=== PATIENT | female | born 1950 | race Hispanic/Latino ===

== ENCOUNTER 2019-10-01 19:20 | Inpatient (IN) | payer OTHER ==
[~2019-10-01] VITALS: Ht 162.6 cm; Wt 125.6 kg
[~2019-10-01 19:20] MED LIST: ALLO100T PO; ASPI-1443 PO; ATOR40TA69 PO; CLOP75TA32 PO; ERGO500014 PO; ESCI10TA54 PO; FERS325 PO; FOLI1TAB85 PO; FURO-152 PO; INSLAN SQ; INSU100C14 SQ; LOSA50TA64 PO; METO50TA18 PO; PANT40TA54 PO
[2019-10-01 19:43] LABS: BASOPHILS % (AUTO) 0.6 % (0.0-5.0); EOSINOPHILS % (AUTO) 2.4 % (0.0-8.0); HEMATOCRIT 36.9 % (36-48); LYMPHOCYTES % (AUTO) 13.2 % (21.0-51.0); MEAN CORPUSCULAR HEMOGLOBIN 30.3 pg (27.0-33.0); MEAN CORPUSCULAR HGB CONC 32.2 g/dL (32.0-36.0); MEAN CORPUSCULAR VOLUME 93.9 fL (79-99); MONOCYTES % (AUTO) 6.3 % (3.0-13.0); NEUTROPHILS % (AUTO) 77.1 % (40.0-77.0); PLATELET COUNT (AUTO) 245 K/uL (130-400); RED BLOOD CELL COUNT(AUTO) 3.93 MIL/uL (4.00-5.50); RED CELL DISTRIBUTION WIDTH 15.3 % (11.0-15.5); WHITE BLOOD COUNT (AUTO) 11.2 K/uL (4.8-10.8)
[2019-10-01 20:12] LABS: B-TYPE NATRIURETIC PEPTIDE 773 pg/mL (0-100); CREATININE 3.3 mg/dL (0.5-1.5); POTASSIUM 4.5 mmol/L (3.5-5.1)
[2019-10-01 20:20] LABS: ALBUMIN 2.8 g/dL (3.5-5.0); BILIRUBIN,TOTAL 0.5 mg/dL (0.2-1.0); TOTAL PROTEIN, SERUM 7.7 g/dL (6.0-8.3)
[2019-10-01] MEDS ORDERED: FUROSEMIDE 10 MG/ML 2ML VIAL ONE (21:00)
[2019-10-01] MEDS ORDERED: ASPIRIN 325 MG TABLET ONE (21:01)
[2019-10-01] MEDS ORDERED: ONDANSETRON HCL 4 MG/2 ML VIAL IV PRN (21:45)
[2019-10-01] MEDS ORDERED: GLUCAGON 1MG KIT 1 MG ML IM PRN (21:45)
[2019-10-01] MEDS ORDERED: DEXTROSE 50%-WATER 50 ML DISP.SYRIN IV PRN (21:45)
[2019-10-01] MEDS: FUROSEMIDE 10 MG/ML 4ML VIAL IV SCH (21:45)
[2019-10-01] MEDS ORDERED: IPRATROPIUM/ALBUTEROL SULFATE 3 ML SOLUTION IH PRN (22:00)
--- NOTE | 2019-10-01 22:40 | NUR ---
PT ARRIVED VIA STRETCHER, DENIES CHEST PAIN OR DISCOMFORT. ON NC 2L DENIES SOB, PT ABLE TO STAND AND SHORT DISTANCE WALK. BED TO LOWEST LEVEL. CALL LIGHT WITHIN REACH.
[2019-10-01 22:48] VITALS: BP 144/68
[2019-10-02] MEDS ORDERED: FERS325 PO (01:10)
[2019-10-02] MEDS: HEPARIN SODIUM 5000UNIT/ML 1ML VIAL SQ SCH ×3 (01:10→21:20)
[2019-10-02] MEDS ORDERED: METO100T14 PO (01:12)
[2019-10-02] MEDS ORDERED: INSU500I SQ (01:13)
[2019-10-02] MEDS ORDERED: NIFE-40 PO (01:15)
[2019-10-02] MEDS ORDERED: FOLI0.8T22 PO (01:16)
[2019-10-02] MEDS ORDERED: ESCI5TAB10 PO (01:17)
[2019-10-02] MEDS ORDERED: SODI1TAB66 PO (01:18)
[2019-10-02 03:07] VITALS: BP 144/62
[2019-10-02 04:36] LABS: BASOPHILS % (AUTO) 0.4 % (0.0-5.0); EOSINOPHILS % (AUTO) 3.2 % (0.0-8.0); HEMATOCRIT 35.2 % (36-48); LYMPHOCYTES % (AUTO) 19.9 % (21.0-51.0); MEAN CORPUSCULAR HEMOGLOBIN 29.6 pg (27.0-33.0); MEAN CORPUSCULAR HGB CONC 31.5 g/dL (32.0-36.0); MEAN CORPUSCULAR VOLUME 93.9 fL (79-99); MONOCYTES % (AUTO) 8.7 % (3.0-13.0); NEUTROPHILS % (AUTO) 67.4 % (40.0-77.0); PLATELET COUNT (AUTO) 228 K/uL (130-400); RED BLOOD CELL COUNT(AUTO) 3.75 MIL/uL (4.00-5.50); RED CELL DISTRIBUTION WIDTH 15.4 % (11.0-15.5); WHITE BLOOD COUNT (AUTO) 8.4 K/uL (4.8-10.8)
[2019-10-02 05:03] LABS: ALBUMIN 2.7 g/dL (3.5-5.0); BILIRUBIN,DIRECT 0.1 mg/dL (0.0-0.3); BILIRUBIN,TOTAL 0.5 mg/dL (0.2-1.0); CREATININE 3.5 mg/dL (0.5-1.5); POTASSIUM 4.6 mmol/L (3.5-5.1); TOTAL PROTEIN, SERUM 7.3 g/dL (6.0-8.3)
[2019-10-02 05:20] LABS: B-TYPE NATRIURETIC PEPTIDE 643 pg/mL (0-100)
[2019-10-02] MEDS: INSULIN HUMULIN R 100 UNIT/ML 3ML SQ SCH ×4 (07:08→21:00)
[2019-10-02] MEDS: FUROSEMIDE 10 MG/ML 4ML VIAL IV SCH ×2 (07:24→21:13)
[2019-10-02] MEDS: FAMOTIDINE/PF 20 MG/2 ML VIAL IV SCH ×2 (07:24→21:06)
[2019-10-02 07:44] VITALS: BP 150/75
--- NOTE | 2019-10-02 07:50 | NUR ---
ASSESSMENT PT IS AAOX3 DENIES CP DENIES SOB DENIES NV NO COMPLAINTS, RESTING IN BED. BREATHING PATTERN IS EVEN AND UNLABORED. CALL LIGHT WITHIN REACH.
[2019-10-02 12:01] VITALS: BP 153/71
[2019-10-02 13:31] LABS: APPEARANCE,URINE Clear (CLEAR); BILIRUBIN,URINE Negative (NEGATIVE); COLOR,URINE Yellow (YELLOW); GLUCOSE, URINE (UA) Negative (NEGATIVE); KETONES,URINE Negative (NEGATIVE); LEUKOCYTE ESTERASE ,URINE Negative (NEGATIVE); NITRATE,URINE Negative (NEGATIVE); OCCULT BLOOD,URINE Negative (NEGATIVE); PH,URINE 5.5 (5.0-8.0); PROTEIN,URINE 300 mg/dL (NEGATIVE); UROBILINOGEN,URINE 0.2 mg/dL (0.2-1.0)
[2019-10-02 13:43] LABS: BACTERIA,URINE Rare /HPF (None Seen); RBC,URINE 0-1 /HPF (0-1); SQUAMOUS EPITHELIAL CELL,UR Rare /HPF (0-2); WBC,URINE 0-1 /HPF (0-1)
[2019-10-02] MEDS: ACETAMINOPHEN 325 MG TAB PO PRN (14:15)
--- NOTE | 2019-10-02 15:31 | NUR ---
INITIAL SW spoke to patient's daughter, Alison Craven, . Another emergency contact is daughter, Marcia Craven, . Patient lives with spouse. As per daughter, patient has home health daily for wound care but daughter does not remember the name of the agency. Patient has no PHC services. DME: glucometer (uses insulin), cane, wheelchair, walker with seat, shower chair. Patient is able to complete ADL's independently but needs help at times. She does not drive. PCP is Dr. Kobi Huffman. Pharmacy is [facility] located in [place]. DCP is home. Addendum: 10/02/19 at 1537 by LUIS GONZALEZ SS Amended: Links added.
[2019-10-02 16:02] VITALS: BP 148/72
[2019-10-02 19:00] VITALS: BP 163/71
[2019-10-02] MEDS: FERROUS SULFATE 325 MG TABLET.DR PO SCH ×2 (21:00→21:06)
[2019-10-02] MEDS: METOPROLOL TARTRATE 50 MG TAB PO SCH (21:06)
[2019-10-02] MEDS: SODIUM BICARBONATE 650 MG TAB PO SCH (21:06)
[2019-10-03 00:12] VITALS: BP 155/78
[2019-10-03] MEDS: ACETAMINOPHEN 325 MG TAB PO PRN ×2 (00:44→10:23)
[2019-10-03 04:32] VITALS: BP 155/68
[2019-10-03 04:46] LABS: BASOPHILS % (AUTO) 0.9 % (0.0-5.0); EOSINOPHILS % (AUTO) 2.5 % (0.0-8.0); HEMATOCRIT 34.8 % (36-48); LYMPHOCYTES % (AUTO) 10.6 % (21.0-51.0); MEAN CORPUSCULAR HEMOGLOBIN 29.7 pg (27.0-33.0); MEAN CORPUSCULAR HGB CONC 31.3 g/dL (32.0-36.0); MEAN CORPUSCULAR VOLUME 94.8 fL (79-99); MONOCYTES % (AUTO) 6.7 % (3.0-13.0); NEUTROPHILS % (AUTO) 79.2 % (40.0-77.0); PLATELET COUNT (AUTO) 212 K/uL (130-400); RED BLOOD CELL COUNT(AUTO) 3.67 MIL/uL (4.00-5.50); RED CELL DISTRIBUTION WIDTH 15.4 % (11.0-15.5); WHITE BLOOD COUNT (AUTO) 9.1 K/uL (4.8-10.8)
[2019-10-03 05:11] LABS: CREATININE 3.6 mg/dL (0.5-1.5); PHOSPHORUS 5.1 mg/dL (2.5-4.9); POTASSIUM 5.1 mmol/L (3.5-5.1); URIC ACID 6.8 mg/dL (2.6-7.2)
[2019-10-03] MEDS: INSULIN HUMULIN R 100 UNIT/ML 3ML SQ SCH ×2 (06:28→11:37)
[2019-10-03 07:00] VITALS: BP 178/78
--- NOTE | 2019-10-03 08:00 | NUR ---
ASSESSMENT AAOX3 DENIES CP DENIES SOB DENIES NV. AM MEDS TAKEN, DENIES PAIN. SITTING UPRIGHT AT BEDSIDE, EATING BREAKFAST. CALL LIGHT WITHIN REACH.
[2019-10-03] MEDS: FUROSEMIDE 10 MG/ML 4ML VIAL IV SCH ×2 (08:01→21:50)
[2019-10-03] MEDS: FERROUS SULFATE 325 MG TABLET.DR PO SCH ×2 (08:02→21:00)
[2019-10-03] MEDS: NIFEDIPINE ER 30 MG TAB PO SCH (08:02)
[2019-10-03] MEDS: SODIUM BICARBONATE 650 MG TAB PO SCH ×2 (08:02→21:50)
[2019-10-03] MEDS: CITALOPRAM 20 MG TABLET PO SCH (08:02)
[2019-10-03] MEDS: METOPROLOL TARTRATE 50 MG TAB PO SCH ×2 (08:02→21:51)
[2019-10-03] MEDS: Vitamin B Complex/Vit C/Folic Acid PO SCH (08:02)
[2019-10-03] MEDS: FAMOTIDINE/PF 20 MG/2 ML VIAL IV SCH ×2 (08:04→21:50)
[2019-10-03] MEDS: HEPARIN SODIUM 5000UNIT/ML 1ML VIAL SQ SCH ×2 (08:05→22:11)
[2019-10-03 11:00] VITALS: BP 159/78
[2019-10-03] MEDS ORDERED: HYDRALAZINE HCL 20 MG/ML VIAL IV PRN (11:15)
[2019-10-03] MEDS: HYDRALAZINE HCL 10 MG TABLET PO SCH ×2 (13:40→21:51)
[2019-10-03 16:00] VITALS: BP 152/72
[2019-10-03] MEDS ORDERED: PHARMACY COMMUNICATION MISC SCH (16:45)
--- NOTE | 2019-10-03 16:50 | NUR ---
GLUCOSE CHECK 403 PT DENIES CP DENIES SOB DENIES NV DENIES DIZZINESS. GAVE 20 UNITS REGULAR INSULIN. CONTINUING TO MONITOR.
--- NOTE | 2019-10-03 17:38 | NUR ---
GLUCOSE RECHECK 427 NOTIFIED PRIMARY MD, ORDERS RECEIVED.
[2019-10-03] MEDS ORDERED: INSULIN LISPRO 100 UNIT/ML 3ML SQ SCH (17:45)
[2019-10-03] MEDS: INSULIN LISPRO 100 UNIT/ML 3ML SQ SCH (17:46)
[2019-10-03 20:24] VITALS: BP 160/83
[2019-10-03] MEDS ORDERED: INSULIN HUMULIN R 100 UNIT/ML 3ML SQ SCH (21:00)
[2019-10-04 00:09] VITALS: BP 145/68
[2019-10-04 04:09] LABS: BASOPHILS % (AUTO) 0.4 % (0.0-5.0); EOSINOPHILS % (AUTO) 2.1 % (0.0-8.0); HEMATOCRIT 33.1 % (36-48); LYMPHOCYTES % (AUTO) 12.7 % (21.0-51.0); MEAN CORPUSCULAR HEMOGLOBIN 29.4 pg (27.0-33.0); MEAN CORPUSCULAR HGB CONC 31.4 g/dL (32.0-36.0); MEAN CORPUSCULAR VOLUME 93.5 fL (79-99); MONOCYTES % (AUTO) 9.7 % (3.0-13.0); NEUTROPHILS % (AUTO) 74.8 % (40.0-77.0); PLATELET COUNT (AUTO) 221 K/uL (130-400); RED BLOOD CELL COUNT(AUTO) 3.54 MIL/uL (4.00-5.50); WHITE BLOOD COUNT (AUTO) 9.4 K/uL (4.8-10.8)
[2019-10-04 04:23] LABS: CREATININE 3.5 mg/dL (0.5-1.5); MAGNESIUM 2.1 mg/dL (1.80-2.40); PHOSPHORUS 4.8 mg/dL (2.5-4.9); POTASSIUM 4.3 mmol/L (3.5-5.1)
[2019-10-04 04:31] LABS: B-TYPE NATRIURETIC PEPTIDE 765 pg/mL (0-100)
[2019-10-04 04:45] VITALS: BP 129/57
--- NOTE | 2019-10-04 05:15 | NUR ---
PT HAS STATED NO CONCERNS AT THIS TIME. REQUESTING SNACKS. CONTINUES TO USE BEDSIDE COMMODE.
[2019-10-04] MEDS: INSULIN HUMULIN R 100 UNIT/ML 3ML SQ SCH ×4 (06:32→21:49)
[2019-10-04 07:00] VITALS: BP 148/74
[2019-10-04] MEDS: METOPROLOL TARTRATE 50 MG TAB PO SCH ×2 (08:02→20:18)
[2019-10-04] MEDS: SODIUM BICARBONATE 650 MG TAB PO SCH ×2 (08:02→20:18)
[2019-10-04] MEDS: NIFEDIPINE ER 30 MG TAB PO SCH (08:02)
[2019-10-04] MEDS: FERROUS SULFATE 325 MG TABLET.DR PO SCH ×2 (08:02→20:18)
[2019-10-04] MEDS: CITALOPRAM 20 MG TABLET PO SCH (08:02)
[2019-10-04] MEDS: HYDRALAZINE HCL 10 MG TABLET PO SCH ×3 (08:02→20:17)
[2019-10-04] MEDS: Vitamin B Complex/Vit C/Folic Acid PO SCH (08:02)
[2019-10-04] MEDS: INSULIN LISPRO 100 UNIT/ML 3ML SQ SCH ×3 (08:09→16:57)
--- NOTE | 2019-10-04 09:10 | NUR ---
RECEIVED CALL FROM PT.'S DAUGHTER, TYLER ORTEZ, UPDATED ON STATUS AND QUESTIONS ANSWERED; VERBALIZED UNDERSTANDING.
[2019-10-04] MEDS: FUROSEMIDE 10 MG/ML 4ML VIAL IV SCH ×2 (09:33→16:53)
[2019-10-04] MEDS: FAMOTIDINE/PF 20 MG/2 ML VIAL IV SCH (09:33)
[2019-10-04] MEDS: HEPARIN SODIUM 5000UNIT/ML 1ML VIAL SQ SCH ×2 (09:33→20:26)
[2019-10-04] MEDS ORDERED: FUROSEMIDE 10 MG/ML 4ML VIAL IV SCH (10:45)
[2019-10-04] MEDS ORDERED: LACT10SO9 PO (10:58)
[2019-10-04 11:00] VITALS: BP 136/60
--- NOTE | 2019-10-04 13:28 | NUR ---
DR. Jozef COBOS IN ROOM SPEAKING WITH PT. RE:PLAN OF CARE. QUESTIONS ANSWERED BY DR. COBOS.
[2019-10-04 15:00] VITALS: BP 126/65
--- NOTE | 2019-10-04 16:15 | NUR ---
[facility] CONSULT PATIENT ASSESSED REQUESTED: PATIENT PRESENTS WITH OPEN WOUND TO RT FOOT; [facility] RECOMMENDATIONS SUBMITTED. Addendum: 10/04/19 at 1621 by LOUISA RIVERA LVN LVN W Amended: Links added.
[2019-10-04] MEDS: ACETAMINOPHEN 325 MG TAB PO PRN (20:18)
[2019-10-05] VITALS (8 sets, daily range): BP systolic 101–142; BP diastolic 43–66
[2019-10-05] MEDS: FUROSEMIDE 10 MG/ML 4ML VIAL IV SCH ×3 (01:48→20:27)
[2019-10-05 05:06] LABS: BASOPHILS % (AUTO) 0.5 % (0.0-5.0); EOSINOPHILS % (AUTO) 3.7 % (0.0-8.0); HEMATOCRIT 34.6 % (36-48); LYMPHOCYTES % (AUTO) 20.1 % (21.0-51.0); MEAN CORPUSCULAR HEMOGLOBIN 29.9 pg (27.0-33.0); MEAN CORPUSCULAR HGB CONC 31.2 g/dL (32.0-36.0); MEAN CORPUSCULAR VOLUME 95.8 fL (79-99); MONOCYTES % (AUTO) 8.6 % (3.0-13.0); NEUTROPHILS % (AUTO) 66.8 % (40.0-77.0); PLATELET COUNT (AUTO) 211 K/uL (130-400); RED BLOOD CELL COUNT(AUTO) 3.61 MIL/uL (4.00-5.50); RED CELL DISTRIBUTION WIDTH 15.3 % (11.0-15.5); WHITE BLOOD COUNT (AUTO) 7.4 K/uL (4.8-10.8)
[2019-10-05 05:21] LABS: CREATININE 4.4 mg/dL (0.5-1.5); MAGNESIUM 2.2 mg/dL (1.80-2.40); PHOSPHORUS 5.6 mg/dL (2.5-4.9); POTASSIUM 4.3 mmol/L (3.5-5.1)
[2019-10-05] MEDS: INSULIN LISPRO 100 UNIT/ML 3ML SQ SCH ×3 (06:26→17:16)
[2019-10-05] MEDS: INSULIN HUMULIN R 100 UNIT/ML 3ML SQ SCH ×4 (06:27→21:11)
[2019-10-05] MEDS: HONEY 1 APPL/ML TUBE TP SCH ×2 (06:27→20:57)
--- NOTE | 2019-10-05 08:54 | NUR ---
DR. COBOS IN ROOM SPEAKING WITH PT. RE:PLAN OF CARE, INCLUDING INCREASE IN DIURETICS AND POSSIBLE NEED FOR HD; PT. VERBALIZED UNDERSTANDING. QUESTIONS ANSWERED BY DR. COBOS.
[2019-10-05] MEDS: Vitamin B Complex/Vit C/Folic Acid PO SCH (09:27)
[2019-10-05] MEDS: SODIUM BICARBONATE 650 MG TAB PO SCH ×2 (09:27→20:28)
[2019-10-05] MEDS: FERROUS SULFATE 325 MG TABLET.DR PO SCH ×2 (09:28→20:28)
[2019-10-05] MEDS: NIFEDIPINE ER 30 MG TAB PO SCH (09:28)
[2019-10-05] MEDS: HYDRALAZINE HCL 10 MG TABLET PO SCH ×3 (09:28→21:00)
[2019-10-05] MEDS: FAMOTIDINE/PF 20 MG/2 ML VIAL IV SCH (09:29)
[2019-10-05] MEDS: HEPARIN SODIUM 5000UNIT/ML 1ML VIAL SQ SCH ×2 (09:29→21:12)
[2019-10-05] MEDS: METOPROLOL TARTRATE 50 MG TAB PO SCH ×2 (09:30→21:00)
[2019-10-05] MEDS: CITALOPRAM 20 MG TABLET PO SCH (09:35)
--- NOTE | 2019-10-05 18:01 | NUR ---
DR. Kayli LOCK IN ROOM SPEAKING WITH PT. RE:PLAN OF CARE. QUESTIONS ANSWERED BY DR. LOCK.
[2019-10-06 03:00] VITALS: BP 140/67
[2019-10-06 03:49] LABS: HEMATOCRIT 34.6 % (36-48); MEAN CORPUSCULAR HEMOGLOBIN 29.2 pg (27.0-33.0); MEAN CORPUSCULAR HGB CONC 30.9 g/dL (32.0-36.0); MEAN CORPUSCULAR VOLUME 94.5 fL (79-99); PLATELET COUNT (AUTO) 220 K/uL (130-400); RED BLOOD CELL COUNT(AUTO) 3.66 MIL/uL (4.00-5.50); RED CELL DISTRIBUTION WIDTH 15.1 % (11.0-15.5); WHITE BLOOD COUNT (AUTO) 8.4 K/uL (4.8-10.8)
[2019-10-06 04:26] LABS: CREATININE 4.4 mg/dL (0.5-1.5); POTASSIUM 4.4 mmol/L (3.5-5.1)
[2019-10-06] MEDS: INSULIN HUMULIN R 100 UNIT/ML 3ML SQ SCH ×2 (05:53→11:31)
[2019-10-06 07:00] VITALS: BP 146/61
[2019-10-06] MEDS: INSULIN LISPRO 100 UNIT/ML 3ML SQ SCH ×5 (08:00→20:42)
[2019-10-06] MEDS: FUROSEMIDE 10 MG/ML 4ML VIAL IV SCH ×2 (09:58→20:30)
[2019-10-06] MEDS: FAMOTIDINE/PF 20 MG/2 ML VIAL IV SCH (09:58)
[2019-10-06] MEDS: NIFEDIPINE ER 30 MG TAB PO SCH (09:59)
[2019-10-06] MEDS: Vitamin B Complex/Vit C/Folic Acid PO SCH (09:59)
[2019-10-06] MEDS: CITALOPRAM 20 MG TABLET PO SCH (09:59)
[2019-10-06] MEDS: SODIUM BICARBONATE 650 MG TAB PO SCH ×2 (09:59→20:30)
[2019-10-06] MEDS: METOPROLOL TARTRATE 50 MG TAB PO SCH (09:59)
[2019-10-06] MEDS: HYDRALAZINE HCL 10 MG TABLET PO SCH ×2 (09:59→14:06)
[2019-10-06] MEDS: FERROUS SULFATE 325 MG TABLET.DR PO SCH ×2 (09:59→20:30)
[2019-10-06] MEDS: HEPARIN SODIUM 5000UNIT/ML 1ML VIAL SQ SCH ×2 (10:00→20:43)
[2019-10-06 11:00] VITALS: BP 124/53
[2019-10-06 15:00] VITALS: BP 121/44
--- NOTE | 2019-10-06 16:03 | NUR ---
SBAR REPORT HANDED TO SABRINA REIS. PATIENT WAS SAFELY TRANSPORTED VIA BED. PATIENT WAS RECEIVED BY SABRINA REIS.
[2019-10-06 19:00] VITALS: BP 115/48
[2019-10-06] MEDS: HONEY 1 APPL/ML TUBE TP SCH (20:30)
[2019-10-06 23:26] VITALS: BP 143/73
[2019-10-07] MEDS: HYDRALAZINE HCL 10 MG TABLET PO SCH ×4 (00:25→21:00)
[2019-10-07] MEDS: METOPROLOL TARTRATE 50 MG TAB PO SCH ×3 (00:25→21:00)
[2019-10-07 04:20] VITALS: BP 145/59
[2019-10-07] MEDS: INSULIN LISPRO 100 UNIT/ML 3ML SQ SCH ×7 (05:29→21:13)
[2019-10-07 06:14] LABS: BASOPHILS % (AUTO) 0.6 % (0.0-5.0); EOSINOPHILS % (AUTO) 3.4 % (0.0-8.0); HEMATOCRIT 32.3 % (36-48); LYMPHOCYTES % (AUTO) 19.2 % (21.0-51.0); MEAN CORPUSCULAR HEMOGLOBIN 29.7 pg (27.0-33.0); MEAN CORPUSCULAR HGB CONC 31.6 g/dL (32.0-36.0); MEAN CORPUSCULAR VOLUME 93.9 fL (79-99); MONOCYTES % (AUTO) 7.9 % (3.0-13.0); NEUTROPHILS % (AUTO) 68.6 % (40.0-77.0); PLATELET COUNT (AUTO) 208 K/uL (130-400); RED BLOOD CELL COUNT(AUTO) 3.44 MIL/uL (4.00-5.50); RED CELL DISTRIBUTION WIDTH 14.9 % (11.0-15.5); WHITE BLOOD COUNT (AUTO) 6.7 K/uL (4.8-10.8)
[2019-10-07 07:03] LABS: CREATININE 4.5 mg/dL (0.5-1.5); POTASSIUM 4.1 mmol/L (3.5-5.1)
[2019-10-07 08:00] VITALS: BP 137/64
[2019-10-07 09:14] LABS: HEMOGLOBIN A1C 9.4 % (4.0-6.0)
[2019-10-07] MEDS: ACETAMINOPHEN 325 MG TAB PO PRN (09:40)
[2019-10-07] MEDS: Vitamin B Complex/Vit C/Folic Acid PO SCH (09:41)
[2019-10-07] MEDS: SODIUM BICARBONATE 650 MG TAB PO SCH ×2 (09:41→21:13)
[2019-10-07] MEDS: NIFEDIPINE ER 30 MG TAB PO SCH (09:42)
[2019-10-07] MEDS: FERROUS SULFATE 325 MG TABLET.DR PO SCH ×2 (09:43→21:12)
[2019-10-07] MEDS: CITALOPRAM 20 MG TABLET PO SCH (09:46)
[2019-10-07] MEDS: HEPARIN SODIUM 5000UNIT/ML 1ML VIAL SQ SCH ×2 (09:54→21:45)
[2019-10-07] MEDS: FAMOTIDINE/PF 20 MG/2 ML VIAL IV SCH (09:54)
[2019-10-07] MEDS: FUROSEMIDE 10 MG/ML 4ML VIAL IV SCH ×2 (10:05→21:12)
[2019-10-07 11:41] VITALS: BP 122/80
[2019-10-07 14:04] LABS: APPEARANCE,URINE Cloudy (CLEAR); BILIRUBIN,URINE Negative (NEGATIVE); COLOR,URINE Yellow (YELLOW); GLUCOSE, URINE (UA) 250 mg/dL (NEGATIVE); KETONES,URINE Negative (NEGATIVE); LEUKOCYTE ESTERASE ,URINE Moderate (NEGATIVE); NITRATE,URINE Negative (NEGATIVE); OCCULT BLOOD,URINE Small (NEGATIVE); PROTEIN,URINE 300 mg/dL (NEGATIVE)
[2019-10-07 14:46] LABS: WBC,URINE 26-50 /HPF (0-1)
[2019-10-07 14:47] LABS: BACTERIA,URINE Many /HPF (None Seen)
[2019-10-07 16:00] VITALS: BP 121/49
[2019-10-07 19:00] VITALS: BP 112/42
[2019-10-07] MEDS: ZOSYN 3.375GM+NS 50ML 50 ML IV SCH (19:45)
[2019-10-07] MEDS ORDERED: ZOSYN 3.375GM+NS 50ML 50 ML IV SCH (21:00)
[2019-10-07] MEDS: HONEY 1 APPL/ML TUBE TP SCH (21:00)
[2019-10-07 23:28] VITALS: BP 132/64
[2019-10-08] VITALS (7 sets, daily range): BP systolic 102–145; BP diastolic 45–69
[2019-10-08 05:45] LABS: BASOPHILS % (AUTO) 0.6 % (0.0-5.0); EOSINOPHILS % (AUTO) 3.9 % (0.0-8.0); HEMATOCRIT 34.2 % (36-48); LYMPHOCYTES % (AUTO) 14.5 % (21.0-51.0); MEAN CORPUSCULAR HEMOGLOBIN 29.9 pg (27.0-33.0); MEAN CORPUSCULAR HGB CONC 31.9 g/dL (32.0-36.0); MONOCYTES % (AUTO) 7.8 % (3.0-13.0); NEUTROPHILS % (AUTO) 72.8 % (40.0-77.0); PLATELET COUNT (AUTO) 221 K/uL (130-400); RED BLOOD CELL COUNT(AUTO) 3.64 MIL/uL (4.00-5.50); WHITE BLOOD COUNT (AUTO) 7.7 K/uL (4.8-10.8)
[2019-10-08 06:10] LABS: CREATININE 4.6 mg/dL (0.5-1.5); PHOSPHORUS 6.6 mg/dL (2.5-4.9); POTASSIUM 4.3 mmol/L (3.5-5.1)
[2019-10-08] MEDS: INSULIN LISPRO 100 UNIT/ML 3ML SQ SCH ×7 (07:05→20:49)
[2019-10-08] MEDS: ZOSYN 3.375GM+NS 50ML 50 ML IV SCH ×2 (07:06→20:50)
[2019-10-08] MEDS: SODIUM BICARBONATE 650 MG TAB PO SCH ×2 (10:56→20:50)
[2019-10-08] MEDS: Vitamin B Complex/Vit C/Folic Acid PO SCH (10:56)
[2019-10-08] MEDS: HYDRALAZINE HCL 10 MG TABLET PO SCH ×3 (10:58→20:50)
[2019-10-08] MEDS: CITALOPRAM 20 MG TABLET PO SCH (10:58)
[2019-10-08] MEDS: METOPROLOL TARTRATE 50 MG TAB PO SCH ×2 (10:59→20:50)
[2019-10-08] MEDS: FERROUS SULFATE 325 MG TABLET.DR PO SCH ×2 (10:59→20:50)
[2019-10-08] MEDS ORDERED: SODIUM CHLORIDE 45 ML SPRY NS PRN (11:00)
[2019-10-08] MEDS: FUROSEMIDE 10 MG/ML 4ML VIAL IV SCH ×2 (11:03→20:50)
[2019-10-08] MEDS: FAMOTIDINE/PF 20 MG/2 ML VIAL IV SCH (11:04)
[2019-10-08] MEDS: HEPARIN SODIUM 5000UNIT/ML 1ML VIAL SQ SCH ×2 (11:21→20:48)
[2019-10-08] MEDS: NIFEDIPINE ER 30 MG TAB PO SCH (11:22)
[2019-10-08] MEDS: ACETAMINOPHEN 325 MG TAB PO PRN (13:39)
[2019-10-08] MEDS: HONEY 1 APPL/ML TUBE TP SCH (20:00)
[2019-10-09 03:54] VITALS: BP 113/54
--- NOTE | 2019-10-09 04:24 | NUR ---
SLEPT Pt slept well.Up ad girma to bedside commode to void,trinh well.Denies chest pain or sob,
[2019-10-09] MEDS: INSULIN LISPRO 100 UNIT/ML 3ML SQ SCH ×7 (05:11→21:34)
[2019-10-09] MEDS: ZOSYN 3.375GM+NS 50ML 50 ML IV SCH ×2 (05:39→18:37)
[2019-10-09 06:23] LABS: EOSINOPHILS % (AUTO) 5.4 % (0.0-8.0); HEMATOCRIT 33.3 % (36-48); LYMPHOCYTES % (AUTO) 15.4 % (21.0-51.0); MEAN CORPUSCULAR HEMOGLOBIN 30.5 pg (27.0-33.0); MEAN CORPUSCULAR HGB CONC 31.8 g/dL (32.0-36.0); MEAN CORPUSCULAR VOLUME 95.7 fL (79-99); MONOCYTES % (AUTO) 8.7 % (3.0-13.0); NEUTROPHILS % (AUTO) 69.4 % (40.0-77.0); PLATELET COUNT (AUTO) 234 K/uL (130-400); RED BLOOD CELL COUNT(AUTO) 3.48 MIL/uL (4.00-5.50); RED CELL DISTRIBUTION WIDTH 15.3 % (11.0-15.5)
[2019-10-09 06:37] LABS: CREATININE 4.9 mg/dL (0.5-1.5); POTASSIUM 4.6 mmol/L (3.5-5.1)
[2019-10-09 07:40] VITALS: BP 102/52
[2019-10-09] MEDS: NIFEDIPINE ER 30 MG TAB PO SCH (09:00)
[2019-10-09] MEDS: HYDRALAZINE HCL 10 MG TABLET PO SCH ×3 (09:00→21:38)
[2019-10-09] MEDS: METOPROLOL TARTRATE 50 MG TAB PO SCH ×2 (09:00→21:37)
[2019-10-09] MEDS: CITALOPRAM 20 MG TABLET PO SCH (09:24)
[2019-10-09] MEDS: SODIUM BICARBONATE 650 MG TAB PO SCH ×2 (09:24→21:37)
[2019-10-09] MEDS: FERROUS SULFATE 325 MG TABLET.DR PO SCH ×2 (09:24→21:38)
[2019-10-09] MEDS: Vitamin B Complex/Vit C/Folic Acid PO SCH (09:24)
[2019-10-09] MEDS: FAMOTIDINE/PF 20 MG/2 ML VIAL IV SCH (09:25)
[2019-10-09] MEDS: FUROSEMIDE 10 MG/ML 4ML VIAL IV SCH ×2 (09:26→21:37)
[2019-10-09] MEDS: HEPARIN SODIUM 5000UNIT/ML 1ML VIAL SQ SCH ×2 (09:42→21:35)
[2019-10-09 11:14] VITALS: BP 133/62
--- NOTE | 2019-10-09 13:30 | NUR ---
DR. COBOS MD HERE TO SEE PATIENT. TOLD PATIENT HER "KIDNEY FUNCTION IS AT 10%." PATIENT TOLD MD SHE WOULD CONSIDER STARTING DIALYSIS ONLY NEEDED URGENTLY. DR. COBOS TOLD PATIENT THAT HER KIDNEY FUNCTION WAS POOR, BUT IT IS NOT AN EMERGENCY TO START DIALYSIS NOW. DID TELL PATIENT SHE COULD START DIALYSIS TREATMENTS NOW IF SHE CHOOSES. PATIENT STATED SHE WANTED TIME TO THINK ABOUT IT AND WOULD CONSIDER STARTING DIALYSIS TREATMENT ONLY IF SHE WAS IN A "LIFE AND SITUATION".
[2019-10-09 15:37] VITALS: BP 130/56
[2019-10-09 19:21] VITALS: BP 135/63
[2019-10-09] MEDS: HONEY 1 APPL/ML TUBE TP SCH (21:37)
[2019-10-09 23:37] VITALS: BP 131/61
--- NOTE | 2019-10-10 02:35 | NUR ---
SLEEP Pt quietly sleeping in bed,arousable.Denies any discomfort.
[2019-10-10 03:03] VITALS: BP 135/61
[2019-10-10 04:03] LABS: BASOPHILS % (AUTO) 0.9 % (0.0-5.0); EOSINOPHILS % (AUTO) 4.9 % (0.0-8.0); HEMATOCRIT 33.1 % (36-48); LYMPHOCYTES % (AUTO) 13.6 % (21.0-51.0); MEAN CORPUSCULAR HEMOGLOBIN 30.1 pg (27.0-33.0); MEAN CORPUSCULAR HGB CONC 31.4 g/dL (32.0-36.0); MEAN CORPUSCULAR VOLUME 95.7 fL (79-99); MONOCYTES % (AUTO) 8.6 % (3.0-13.0); NEUTROPHILS % (AUTO) 71.8 % (40.0-77.0); PLATELET COUNT (AUTO) 234 K/uL (130-400); RED BLOOD CELL COUNT(AUTO) 3.46 MIL/uL (4.00-5.50); RED CELL DISTRIBUTION WIDTH 15.4 % (11.0-15.5); WHITE BLOOD COUNT (AUTO) 8.1 K/uL (4.8-10.8)
[2019-10-10 04:14] LABS: INR 1.14 (0.85-1.15); PARTIAL THROMBOPLASTIN TIME 29.9 SEC (26.3-35.5); PROTHROMBIN TIME 12.2 SEC (9.6-11.6)
[2019-10-10 04:35] LABS: ALBUMIN 2.6 g/dL (3.5-5.0); BILIRUBIN,TOTAL 0.5 mg/dL (0.2-1.0); CREATININE 5.2 mg/dL (0.5-1.5); PHOSPHORUS 6.7 mg/dL (2.5-4.9); POTASSIUM 4.7 mmol/L (3.5-5.1); TOTAL PROTEIN, SERUM 7.5 g/dL (6.0-8.3)
[2019-10-10] MEDS: ZOSYN 3.375GM+NS 50ML 50 ML IV SCH (06:20)
[2019-10-10] MEDS: INSULIN LISPRO 100 UNIT/ML 3ML SQ SCH ×7 (06:28→20:51)
[2019-10-10 08:50] VITALS: BP 136/44
[2019-10-10] MEDS ORDERED: CEPHALEXIN 500 MG CAPSULE PO SCH (09:00)
[2019-10-10] MEDS: HYDRALAZINE HCL 10 MG TABLET PO SCH ×3 (09:00→20:48)
[2019-10-10] MEDS: METOPROLOL TARTRATE 50 MG TAB PO SCH ×2 (09:00→20:47)
[2019-10-10] MEDS: FUROSEMIDE 10 MG/ML 4ML VIAL IV SCH (10:05)
[2019-10-10] MEDS: FAMOTIDINE/PF 20 MG/2 ML VIAL IV SCH (10:06)
[2019-10-10] MEDS: Vitamin B Complex/Vit C/Folic Acid PO SCH (10:06)
[2019-10-10] MEDS: NIFEDIPINE ER 30 MG TAB PO SCH (10:06)
[2019-10-10] MEDS: FERROUS SULFATE 325 MG TABLET.DR PO SCH ×2 (10:07→20:47)
[2019-10-10] MEDS: SODIUM BICARBONATE 650 MG TAB PO SCH ×2 (10:07→20:46)
[2019-10-10] MEDS: CITALOPRAM 20 MG TABLET PO SCH (10:07)
--- NOTE | 2019-10-10 10:13 | NUR ---
RD NOTIFICATION RD consults due to LOS X 9. Diet: renal non dialysis, 75gmccd, fluid restriction. Labs and meds reviewed. Pt is not on dialysis at this time. Pending decision to proceed with dialysis at this time. Right foot ulcer noted. RD will continue to monitor and follow up Monitor po intake, tolerance and labs Pending decision to proceed with dialysis Addendum: 10/10/19 at [address] Amended: Links added.
[2019-10-10] MEDS: HEPARIN SODIUM 5000UNIT/ML 1ML VIAL SQ SCH ×2 (10:19→20:50)
--- NOTE | 2019-10-10 11:30 | NUR ---
Misti CHATMAN NP INFORMED Misti CHATMAN NP FOR HOSPITALIST OF DR. COBOS'S RECOMMENDATIONS AND OK TO DISCHARGE. INFORMED PATIENT QUALIFIES FOR HOME 02 PER RT.
[2019-10-10 11:54] VITALS: BP 138/73
[2019-10-10 16:39] VITALS: BP 128/56
[2019-10-10] MEDS: FUROSEMIDE 80 MG TABLET PO SCH (16:55)
[2019-10-10 19:11] VITALS: BP 127/64
[2019-10-10] MEDS: CEPHALEXIN 500 MG CAPSULE PO SCH (20:47)
[2019-10-10] MEDS: ACETAMINOPHEN 325 MG TAB PO PRN (20:48)
[2019-10-10] MEDS: HONEY 1 APPL/ML TUBE TP SCH (20:48)
[2019-10-10 23:27] VITALS: BP 118/59
[2019-10-11 03:45] VITALS: BP 107/62
--- NOTE | 2019-10-11 04:41 | NUR ---
STATUS Pt pending Home 02 set up.
[2019-10-11 05:34] LABS: BASOPHILS % (AUTO) 0.9 % (0.0-5.0); EOSINOPHILS % (AUTO) 5.1 % (0.0-8.0); HEMATOCRIT 34.5 % (36-48); MEAN CORPUSCULAR HEMOGLOBIN 29.3 pg (27.0-33.0); MEAN CORPUSCULAR HGB CONC 30.4 g/dL (32.0-36.0); MEAN CORPUSCULAR VOLUME 96.4 fL (79-99); MONOCYTES % (AUTO) 7.9 % (3.0-13.0); NEUTROPHILS % (AUTO) 69.9 % (40.0-77.0); PLATELET COUNT (AUTO) 229 K/uL (130-400); RED BLOOD CELL COUNT(AUTO) 3.58 MIL/uL (4.00-5.50); RED CELL DISTRIBUTION WIDTH 15.2 % (11.0-15.5); WHITE BLOOD COUNT (AUTO) 8.1 K/uL (4.8-10.8)
[2019-10-11 05:56] LABS: ALBUMIN 2.6 g/dL (3.5-5.0); BILIRUBIN,TOTAL 0.7 mg/dL (0.2-1.0); CREATININE 5.1 mg/dL (0.5-1.5); POTASSIUM 4.8 mmol/L (3.5-5.1); TOTAL PROTEIN, SERUM 7.7 g/dL (6.0-8.3)
[2019-10-11] MEDS: INSULIN LISPRO 100 UNIT/ML 3ML SQ SCH ×7 (06:44→20:45)
[2019-10-11] MEDS ORDERED: GUAIFENESIN-DM 200/20 MG 10 ML PO SCH (07:15)
[2019-10-11 08:00] VITALS: BP 133/57
[2019-10-11] MEDS: CEPHALEXIN 500 MG CAPSULE PO SCH ×2 (09:24→19:49)
[2019-10-11] MEDS: Vitamin B Complex/Vit C/Folic Acid PO SCH (09:25)
[2019-10-11] MEDS: CITALOPRAM 20 MG TABLET PO SCH (09:26)
[2019-10-11] MEDS: FUROSEMIDE 80 MG TABLET PO SCH ×2 (09:26→18:08)
[2019-10-11] MEDS: METOPROLOL TARTRATE 50 MG TAB PO SCH ×2 (09:27→19:47)
[2019-10-11] MEDS: HYDRALAZINE HCL 10 MG TABLET PO SCH ×3 (09:29→20:40)
[2019-10-11] MEDS: SODIUM BICARBONATE 650 MG TAB PO SCH ×2 (09:29→19:49)
[2019-10-11] MEDS: FERROUS SULFATE 325 MG TABLET.DR PO SCH ×2 (09:30→19:47)
[2019-10-11] MEDS: NIFEDIPINE ER 30 MG TAB PO SCH (09:30)
[2019-10-11] MEDS: FAMOTIDINE/PF 20 MG/2 ML VIAL IV SCH (09:34)
[2019-10-11] MEDS: GUAIFENESIN-DM 200/20 MG 10 ML PO SCH ×4 (09:46→23:16)
[2019-10-11] MEDS: HEPARIN SODIUM 5000UNIT/ML 1ML VIAL SQ SCH ×2 (09:51→19:46)
[2019-10-11 12:00] VITALS: BP 118/50
--- NOTE | 2019-10-11 12:58 | NUR ---
Notified Dr. Queen of new consult. Name and spectra number for primary nurse Karen given to
[2019-10-11 16:00] VITALS: BP 99/55
--- NOTE | 2019-10-11 16:00 | NUR ---
i have paged dr sanches to inform him that pt has stated she is agreeable to starting dialysis now; pending call back
--- NOTE | 2019-10-11 17:03 | NUR ---
dr espinal here to see pt in regards to pulmonology consult.
[2019-10-11] MEDS: ACETAMINOPHEN 325 MG TAB PO PRN (18:07)
[2019-10-11 19:00] VITALS: BP 121/58
[2019-10-11] MEDS: NYSTATIN 15 GM POWDER TP SCH ×2 (19:48→21:00)
[2019-10-11] MEDS: HONEY 1 APPL/ML TUBE TP SCH (21:00)
[2019-10-12] VITALS (7 sets, daily range): BP systolic 112–134; BP diastolic 51–61
[2019-10-12 04:16] LABS: BASOPHILS % (AUTO) 0.4 % (0.0-5.0); EOSINOPHILS % (AUTO) 3.3 % (0.0-8.0); HEMATOCRIT 31.8 % (36-48); LYMPHOCYTES % (AUTO) 14.1 % (21.0-51.0); MEAN CORPUSCULAR HEMOGLOBIN 30.2 pg (27.0-33.0); MEAN CORPUSCULAR HGB CONC 31.8 g/dL (32.0-36.0); MEAN CORPUSCULAR VOLUME 95.2 fL (79-99); MONOCYTES % (AUTO) 7.5 % (3.0-13.0); NEUTROPHILS % (AUTO) 74.4 % (40.0-77.0); PLATELET COUNT (AUTO) 234 K/uL (130-400); RED BLOOD CELL COUNT(AUTO) 3.34 MIL/uL (4.00-5.50); RED CELL DISTRIBUTION WIDTH 15.1 % (11.0-15.5); WHITE BLOOD COUNT (AUTO) 9.3 K/uL (4.8-10.8)
[2019-10-12 04:36] LABS: INR 1.14 (0.85-1.15); PARTIAL THROMBOPLASTIN TIME 30.9 SEC (26.3-35.5); PROTHROMBIN TIME 12.3 SEC (9.6-11.6)
[2019-10-12 04:50] LABS: ALBUMIN 2.7 g/dL (3.5-5.0); BILIRUBIN,DIRECT 0.2 mg/dL (0.0-0.3); BILIRUBIN,TOTAL 0.5 mg/dL (0.2-1.0); CREATININE 5.2 mg/dL (0.5-1.5); POTASSIUM 3.8 mmol/L (3.5-5.1); TOTAL PROTEIN, SERUM 7.5 g/dL (6.0-8.3)
[2019-10-12] MEDS: GUAIFENESIN-DM 200/20 MG 10 ML PO SCH ×3 (05:14→19:15)
[2019-10-12] MEDS: INSULIN LISPRO 100 UNIT/ML 3ML SQ SCH ×8 (06:31→22:16)
[2019-10-12] MEDS: CEPHALEXIN 500 MG CAPSULE PO SCH ×2 (09:11→22:18)
[2019-10-12] MEDS: FUROSEMIDE 80 MG TABLET PO SCH ×2 (09:12→18:16)
[2019-10-12] MEDS: FERROUS SULFATE 325 MG TABLET.DR PO SCH ×2 (09:14→22:18)
[2019-10-12] MEDS: Vitamin B Complex/Vit C/Folic Acid PO SCH (09:14)
[2019-10-12] MEDS: CITALOPRAM 20 MG TABLET PO SCH (09:16)
[2019-10-12] MEDS: HYDRALAZINE HCL 10 MG TABLET PO SCH ×2 (09:17→15:23)
[2019-10-12] MEDS: METOPROLOL TARTRATE 50 MG TAB PO SCH (09:17)
[2019-10-12] MEDS: SODIUM BICARBONATE 650 MG TAB PO SCH ×2 (09:18→22:18)
[2019-10-12] MEDS: NIFEDIPINE ER 30 MG TAB PO SCH (09:18)
[2019-10-12] MEDS: NYSTATIN 15 GM POWDER TP SCH ×2 (09:19→21:00)
[2019-10-12] MEDS: FAMOTIDINE/PF 20 MG/2 ML VIAL IV SCH (09:21)
[2019-10-12] MEDS: HEPARIN SODIUM 5000UNIT/ML 1ML VIAL SQ SCH ×2 (13:08→22:21)
[2019-10-12] MEDS: ACETAMINOPHEN 325 MG TAB PO PRN (15:27)
[2019-10-12] MEDS: NYSTATIN 100000 UNIT/ML 5ML UDCUP PO SCH ×2 (18:15→22:22)
[2019-10-12] MEDS: CLOTRIMAZOLE/BETAMETHASONE DIP 45 GM CREAM.GM. TP SCH (22:17)
[2019-10-12] MEDS: HONEY 1 APPL/ML TUBE TP SCH (22:17)
[2019-10-13] VITALS (15 sets, daily range): BP systolic 107–142; BP diastolic 53–88
[2019-10-13] MEDS: HYDRALAZINE HCL 10 MG TABLET PO SCH ×4 (00:16→21:00)
[2019-10-13] MEDS: GUAIFENESIN-DM 200/20 MG 10 ML PO SCH ×4 (00:16→17:40)
[2019-10-13] MEDS: METOPROLOL TARTRATE 50 MG TAB PO SCH ×3 (00:16→23:06)
[2019-10-13 04:26] LABS: BASOPHILS % (AUTO) 0.4 % (0.0-5.0); EOSINOPHILS % (AUTO) 2.1 % (0.0-8.0); HEMATOCRIT 31.1 % (36-48); LYMPHOCYTES % (AUTO) 9.7 % (21.0-51.0); MEAN CORPUSCULAR HEMOGLOBIN 29.3 pg (27.0-33.0); MEAN CORPUSCULAR HGB CONC 31.5 g/dL (32.0-36.0); MEAN CORPUSCULAR VOLUME 93.1 fL (79-99); NEUTROPHILS % (AUTO) 80.5 % (40.0-77.0); PLATELET COUNT (AUTO) 224 K/uL (130-400); RED BLOOD CELL COUNT(AUTO) 3.34 MIL/uL (4.00-5.50); WHITE BLOOD COUNT (AUTO) 9.1 K/uL (4.8-10.8)
[2019-10-13 04:49] LABS: CREATININE 5.3 mg/dL (0.5-1.5); POTASSIUM 4.2 mmol/L (3.5-5.1)
[2019-10-13] MEDS: INSULIN LISPRO 100 UNIT/ML 3ML SQ SCH ×7 (07:30→23:00)
[2019-10-13] MEDS: FUROSEMIDE 80 MG TABLET PO SCH ×2 (08:27→17:30)
[2019-10-13] MEDS: NIFEDIPINE ER 30 MG TAB PO SCH (08:27)
[2019-10-13] MEDS: SODIUM BICARBONATE 650 MG TAB PO SCH ×2 (08:27→23:02)
[2019-10-13] MEDS: NYSTATIN 15 GM POWDER TP SCH ×2 (08:27→23:04)
[2019-10-13] MEDS: FAMOTIDINE/PF 20 MG/2 ML VIAL IV SCH (08:27)
[2019-10-13] MEDS: FERROUS SULFATE 325 MG TABLET.DR PO SCH ×2 (08:27→23:02)
[2019-10-13] MEDS: Vitamin B Complex/Vit C/Folic Acid PO SCH (08:27)
[2019-10-13] MEDS: NYSTATIN 100000 UNIT/ML 5ML UDCUP PO SCH ×4 (08:27→23:02)
[2019-10-13] MEDS: CITALOPRAM 20 MG TABLET PO SCH (08:27)
[2019-10-13] MEDS: CEPHALEXIN 500 MG CAPSULE PO SCH ×2 (08:27→23:02)
[2019-10-13] MEDS: CLOTRIMAZOLE/BETAMETHASONE DIP 45 GM CREAM.GM. TP SCH ×2 (08:28→23:04)
[2019-10-13] MEDS: HEPARIN SODIUM 5000UNIT/ML 1ML VIAL SQ SCH ×2 (09:45→21:20)
--- NOTE | 2019-10-13 10:01 | NUR ---
SANDI FOLLOW UP Pt NPO pending cath placement/Hemodialysis initiation. Recommend Renal Dialysis Diet order when medically feasible. Pt tolerating PO diet order prior to NPO placement. Good PO. Monitored labs: BUN 102, Cr 5.3, GFR 9, BG 237 RD to continue to monitor. Please notify as additional nutrition concerns arise. Thank you. Addendum: 10/13/19 at [address] Amended: Links added.
[2019-10-13] MEDS ORDERED: LIDOCAINE HCL 1% MDV 50ML VIAL ONE (13:36)
[2019-10-13] MEDS ORDERED: MIDAZOLAM HCL 1 MG/ML 2ML VIAL ONE (13:44)
[2019-10-13] MEDS ORDERED: FENTANYL CITRATE PF 50 MCG/1 ML 2ML VIAL ONE (13:44)
[2019-10-13 15:19] LABS: HEMATOCRIT 31.4 % (36-48)
[2019-10-13 15:34] LABS: HEMOGLOBIN A1C 8.8 % (4.0-6.0)
[2019-10-13 15:49] LABS: ALBUMIN 2.9 g/dL (3.5-5.0); CREATININE 5.4 mg/dL (0.5-1.5)
[2019-10-13 17:08] LABS: % IRON SATURATION 20.3 % (22-44)
[2019-10-13] MEDS: ACETAMINOPHEN 325 MG TAB PO PRN (17:49)
--- NOTE | 2019-10-13 17:54 | NUR ---
DR MEDINA CALLED DR MEDINA CELL- MADE AWARE OF CONSULT. PENDING TO SEE
[2019-10-13] MEDS ORDERED: SODIUM CHLORIDE 0.9% 1000ML 1,000 ML IV PRN (19:00)
[2019-10-13] MEDS ORDERED: 0.9% SODIUM CHLORIDE 1000 ML IV BAG IV PRN (19:00)
[2019-10-13] MEDS ORDERED: ACETAMINOPHEN 325 MG TAB PO PRN (19:00)
[2019-10-13] MEDS ORDERED: HEPARIN SODIUM 5000UNIT/ML 1ML VIAL IJ PRN (19:00)
[2019-10-13] MEDS: HONEY 1 APPL/ML TUBE TP SCH (23:04)
[2019-10-14] MEDS: GUAIFENESIN-DM 200/20 MG 10 ML PO SCH ×4 (01:23→16:49)
[2019-10-14 04:21] VITALS: BP 123/60
[2019-10-14 05:25] LABS: BASOPHILS % (AUTO) 0.5 % (0.0-5.0); HEMATOCRIT 32.5 % (36-48); LYMPHOCYTES % (AUTO) 9.8 % (21.0-51.0); MEAN CORPUSCULAR HEMOGLOBIN 29.7 pg (27.0-33.0); MEAN CORPUSCULAR HGB CONC 31.4 g/dL (32.0-36.0); MEAN CORPUSCULAR VOLUME 94.5 fL (79-99); MONOCYTES % (AUTO) 6.6 % (3.0-13.0); NEUTROPHILS % (AUTO) 82.9 % (40.0-77.0); PLATELET COUNT (AUTO) 237 K/uL (130-400); RED BLOOD CELL COUNT(AUTO) 3.44 MIL/uL (4.00-5.50); RED CELL DISTRIBUTION WIDTH 15.2 % (11.0-15.5); WHITE BLOOD COUNT (AUTO) 8.1 K/uL (4.8-10.8)
[2019-10-14 05:50] LABS: ALBUMIN 2.8 g/dL (3.5-5.0); BILIRUBIN,TOTAL 0.6 mg/dL (0.2-1.0); CREATININE 4.8 mg/dL (0.5-1.5); PHOSPHORUS 6.5 mg/dL (2.5-4.9); POTASSIUM 5.3 mmol/L (3.5-5.1)
[2019-10-14] MEDS: INSULIN LISPRO 100 UNIT/ML 3ML SQ SCH ×7 (06:51→20:14)
--- NOTE | 2019-10-14 08:03 | NUR ---
DR AVILA/EPIFANIO TOLD PT THAT AV FISTULA WILL LIKELY BE SCHEDULED FOR NEXT WEEK. PT VERBALIZED UNDERSTANDING. EXPLAINED PROCEDURE TO PATIENT IN LAYMANS TERMS. VERBALIZED UNDERSTANDING. NO ORDERS GIVEN YET
[2019-10-14 08:15] VITALS: BP 130/53
[2019-10-14] MEDS: METOPROLOL TARTRATE 50 MG TAB PO SCH ×3 (08:32→20:19)
[2019-10-14] MEDS: FAMOTIDINE/PF 20 MG/2 ML VIAL IV SCH (08:32)
[2019-10-14] MEDS: NYSTATIN 100000 UNIT/ML 5ML UDCUP PO SCH ×4 (08:32→20:15)
[2019-10-14] MEDS: SODIUM BICARBONATE 650 MG TAB PO SCH ×2 (08:32→20:15)
[2019-10-14] MEDS: FUROSEMIDE 80 MG TABLET PO SCH ×2 (08:32→17:01)
[2019-10-14] MEDS: CEPHALEXIN 500 MG CAPSULE PO SCH ×2 (08:32→20:15)
[2019-10-14] MEDS: NIFEDIPINE ER 30 MG TAB PO SCH (08:32)
[2019-10-14] MEDS: Vitamin B Complex/Vit C/Folic Acid PO SCH (08:32)
[2019-10-14] MEDS: FERROUS SULFATE 325 MG TABLET.DR PO SCH ×2 (08:32→20:15)
[2019-10-14] MEDS: CITALOPRAM 20 MG TABLET PO SCH (08:33)
[2019-10-14] MEDS: NYSTATIN 15 GM POWDER TP SCH ×2 (08:33→20:18)
[2019-10-14] MEDS: CLOTRIMAZOLE/BETAMETHASONE DIP 45 GM CREAM.GM. TP SCH ×2 (08:33→20:17)
[2019-10-14] MEDS: HEPARIN SODIUM 5000UNIT/ML 1ML VIAL SQ SCH ×2 (08:35→20:29)
[2019-10-14] MEDS: HYDRALAZINE HCL 10 MG TABLET PO SCH ×3 (08:36→21:00)
[2019-10-14 11:19] VITALS: BP 115/49
--- NOTE | 2019-10-14 12:50 | NUR ---
Patient is on Dialysis.Will attempt to initiate PT Evaluation 10/15/2019. Addendum: 10/14/19 at 1418 by KOJO NAVARRETE, PT PT Amended: Links added.
[2019-10-14 16:59] VITALS: BP 123/52
[2019-10-14 19:00] VITALS: BP 129/53
[2019-10-14] MEDS: INSULIN GLARGINE 100 UNITS/ML 10 ML VIAL SQ SCH (20:12)
[2019-10-14] MEDS: HONEY 1 APPL/ML TUBE TP SCH (20:17)
[2019-10-14 23:00] VITALS: BP 121/63
[2019-10-15] MEDS: GUAIFENESIN-DM 200/20 MG 10 ML PO SCH ×4 (01:15→17:00)
[2019-10-15 03:00] VITALS: BP 131/53
[2019-10-15 05:34] LABS: BASOPHILS % (AUTO) 0.3 % (0.0-5.0); EOSINOPHILS % (AUTO) 0.3 % (0.0-8.0); HEMATOCRIT 32.1 % (36-48); LYMPHOCYTES % (AUTO) 7.9 % (21.0-51.0); MEAN CORPUSCULAR HEMOGLOBIN 29.7 pg (27.0-33.0); MEAN CORPUSCULAR HGB CONC 31.8 g/dL (32.0-36.0); MEAN CORPUSCULAR VOLUME 93.3 fL (79-99); MONOCYTES % (AUTO) 5.5 % (3.0-13.0); NEUTROPHILS % (AUTO) 85.6 % (40.0-77.0); PLATELET COUNT (AUTO) 186 K/uL (130-400); RED BLOOD CELL COUNT(AUTO) 3.44 MIL/uL (4.00-5.50); RED CELL DISTRIBUTION WIDTH 15.2 % (11.0-15.5); WHITE BLOOD COUNT (AUTO) 9.5 K/uL (4.8-10.8)
[2019-10-15 05:51] LABS: ALBUMIN 2.9 g/dL (3.5-5.0); BILIRUBIN,TOTAL 0.4 mg/dL (0.2-1.0); CREATININE 3.9 mg/dL (0.5-1.5); POTASSIUM 3.9 mmol/L (3.5-5.1); TOTAL PROTEIN, SERUM 7.5 g/dL (6.0-8.3)
[2019-10-15] MEDS: INSULIN LISPRO 100 UNIT/ML 3ML SQ SCH ×7 (06:10→20:19)
[2019-10-15 08:02] VITALS: BP 131/62
[2019-10-15] MEDS: HYDRALAZINE HCL 10 MG TABLET PO SCH ×3 (08:13→19:33)
[2019-10-15] MEDS: NYSTATIN 15 GM POWDER TP SCH ×2 (08:14→19:39)
[2019-10-15] MEDS: NYSTATIN 100000 UNIT/ML 5ML UDCUP PO SCH ×4 (08:14→19:29)
[2019-10-15] MEDS: FUROSEMIDE 80 MG TABLET PO SCH ×2 (08:30→17:28)
[2019-10-15] MEDS: SODIUM BICARBONATE 650 MG TAB PO SCH ×2 (08:30→19:29)
[2019-10-15] MEDS: CITALOPRAM 20 MG TABLET PO SCH (08:30)
[2019-10-15] MEDS: NIFEDIPINE ER 30 MG TAB PO SCH (08:30)
[2019-10-15] MEDS: FERROUS SULFATE 325 MG TABLET.DR PO SCH ×2 (08:30→19:30)
[2019-10-15] MEDS: Vitamin B Complex/Vit C/Folic Acid PO SCH (08:30)
[2019-10-15] MEDS: CEPHALEXIN 500 MG CAPSULE PO SCH ×2 (08:31→19:30)
[2019-10-15] MEDS: FAMOTIDINE/PF 20 MG/2 ML VIAL IV SCH (08:31)
[2019-10-15] MEDS: CLOTRIMAZOLE/BETAMETHASONE DIP 45 GM CREAM.GM. TP SCH ×2 (08:31→19:38)
[2019-10-15] MEDS: METOPROLOL TARTRATE 50 MG TAB PO SCH ×2 (08:31→19:30)
[2019-10-15] MEDS: HEPARIN SODIUM 5000UNIT/ML 1ML VIAL SQ SCH ×2 (08:37→19:32)
[2019-10-15 11:33] VITALS: BP 133/63
[2019-10-15 16:37] VITALS: BP 127/56
[2019-10-15 19:00] VITALS: BP 125/51
[2019-10-15] MEDS: HONEY 1 APPL/ML TUBE TP SCH (19:38)
[2019-10-15] MEDS: INSULIN GLARGINE 100 UNITS/ML 10 ML VIAL SQ SCH (20:18)
[2019-10-15 23:00] VITALS: BP 120/55
[2019-10-16] VITALS (22 sets, daily range): BP systolic 99–150; BP diastolic 53–75
[2019-10-16] MEDS: GUAIFENESIN-DM 200/20 MG 10 ML PO SCH ×5 (00:51→22:45)
[2019-10-16] MEDS: INSULIN LISPRO 100 UNIT/ML 3ML SQ SCH ×7 (05:16→21:39)
[2019-10-16 05:24] LABS: BASOPHILS % (AUTO) 0.2 % (0.0-5.0); EOSINOPHILS % (AUTO) 0.3 % (0.0-8.0); HEMATOCRIT 32.3 % (36-48); LYMPHOCYTES % (AUTO) 8.9 % (21.0-51.0); MEAN CORPUSCULAR HEMOGLOBIN 29.7 pg (27.0-33.0); MEAN CORPUSCULAR HGB CONC 31.3 g/dL (32.0-36.0); MONOCYTES % (AUTO) 5.7 % (3.0-13.0); NEUTROPHILS % (AUTO) 84.6 % (40.0-77.0); PLATELET COUNT (AUTO) 188 K/uL (130-400); RED CELL DISTRIBUTION WIDTH 15.4 % (11.0-15.5); WHITE BLOOD COUNT (AUTO) 9.6 K/uL (4.8-10.8)
[2019-10-16 05:44] LABS: INR 1.13 (0.85-1.15); PARTIAL THROMBOPLASTIN TIME 28.9 SEC (26.3-35.5); PROTHROMBIN TIME 12.1 SEC (9.6-11.6)
[2019-10-16 05:52] LABS: ALBUMIN 2.9 g/dL (3.5-5.0); BILIRUBIN,TOTAL 0.5 mg/dL (0.2-1.0); CREATININE 4.2 mg/dL (0.5-1.5); POTASSIUM 4.1 mmol/L (3.5-5.1); TOTAL PROTEIN, SERUM 7.5 g/dL (6.0-8.3)
[2019-10-16] MEDS: NIFEDIPINE ER 30 MG TAB PO SCH (09:00)
[2019-10-16] MEDS: NYSTATIN 100000 UNIT/ML 5ML UDCUP PO SCH ×5 (09:00→21:00)
[2019-10-16] MEDS: HYDRALAZINE HCL 10 MG TABLET PO SCH ×3 (09:00→21:00)
[2019-10-16] MEDS: CLOTRIMAZOLE/BETAMETHASONE DIP 45 GM CREAM.GM. TP SCH ×2 (09:00→21:19)
[2019-10-16] MEDS: FUROSEMIDE 80 MG TABLET PO SCH ×2 (09:00→17:00)
[2019-10-16] MEDS: NYSTATIN 15 GM POWDER TP SCH ×2 (09:00→21:20)
[2019-10-16] MEDS: METOPROLOL TARTRATE 50 MG TAB PO SCH ×2 (09:22→21:00)
[2019-10-16] MEDS ORDERED: CEFAZOLIN SODIUM 1 GM VIAL ONE ×2 (09:43→12:16)
[2019-10-16] MEDS ORDERED: PAPAVERINE HCL 30 MG/ML 2ML VIAL ONE (09:44)
[2019-10-16] MEDS: HEPARIN SODIUM 5000UNIT/ML 1ML VIAL SQ SCH ×2 (09:45→21:20)
[2019-10-16] MEDS ORDERED: MIDAZOLAM HCL 1 MG/ML 2ML VIAL ONE (10:05)
[2019-10-16] MEDS ORDERED: DEXAMETHASONE SOD PHOSPHATE 10MG/ML 1ML VIAL ONE (10:05)
[2019-10-16] MEDS ORDERED: ROPIVACAINE 0.5% 5MG/ML 30ML IJ ONE (10:05)
[2019-10-16] MEDS ORDERED: KETAMINE 50MG/ML SYRINGE 50 MG/ML DISP.SYRIN IV ONE ×2 (10:06→12:24)
[2019-10-16] MEDS ORDERED: GLYCOPYRROLATE 1 MG/5 ML SYRINGE ONE (12:28)
[2019-10-16] MEDS ORDERED: LIDOCAINE HCL 1% 20 ML VIAL ONE (12:29)
[2019-10-16] MEDS ORDERED: BUPIVACAINE/PF 0.25% 30ML VIAL IJ ONE (12:29)
[2019-10-16] MEDS ORDERED: FENTANYL CITRATE PF 50 MCG/1 ML 2ML VIAL ONE ×2 (12:40→14:27)
[2019-10-16] MEDS ORDERED: LIDOCAINE PF 2% 5ML ABBOJECT ONE (12:46)
[2019-10-16] MEDS ORDERED: PROPOFOL 10 MG/ML 20ML VIAL IV ONE (12:46)
[2019-10-16] MEDS ORDERED: ONDANSETRON HCL 4 MG/2 ML VIAL ONE (12:48)
--- NOTE | 2019-10-16 13:26 | NUR ---
CM NOTE/DIALYSIS REFERRAL NEW ORDER FOR HD. PER PATIENT AND DAUGHTER SHERLY CASH FOR [facility]. DANIEL VERBAL CONSENT GIVEN. CLINICALS FAXED TO [facility]TA[facility], PENDING CONFIRMATION. PATIENT TO HAVE AV FISTULA PLACEMENT TODAY. WILL FOLLOW UP FOR CHAIR DATE/TIME.
--- NOTE | 2019-10-16 13:56 | NUR ---
RT ARM DRESSING, CDI, NEW FISTULA TO LEFT ARM. PT WITH LEFT RADIAL PULSE BY DOPPLER. GOOD CAP REFILL TO LEFT HAND FINGERS AND HAND WARM TO TACTILE. PT STABLE. RT CHEST TEMPORARY DIALYSIS PORT, DRESSING BLOODY AND OOZING. TRISTA JIM NOTIFIED, ORDERS GIVEN TO REENFORCE DRESSING. Addendum: 10/16/19 at 1444 by NA NOEL RN RN Amended: Links added.
--- NOTE | 2019-10-16 14:54 | NUR ---
LEFT ARM DRESSING CDI. LEFT ARM RADIAL PULSE BY DOPPLER. LEFT ARM GOOD CAP REFILL AND HAND WARM TO TACTILE. PT STABLE. PT TRANSFERRED TO HER RM. Addendum: 10/16/19 at 1456 by NA NOEL RN RN Amended: Links added.
[2019-10-16] MEDS ORDERED: TRAMADOL HCL 50 MG TABLET PO PRN (15:00)
[2019-10-16] MEDS: HYDROMORPHONE 1 MG/1 ML AMP IVP PRN ×3 (15:21→21:55)
[2019-10-16 16:40] LABS: HEMATOCRIT 32.3 % (36-48); MEAN CORPUSCULAR HEMOGLOBIN 29.6 pg (27.0-33.0); MEAN CORPUSCULAR HGB CONC 30.7 g/dL (32.0-36.0); MEAN CORPUSCULAR VOLUME 96.4 fL (79-99); PLATELET COUNT (AUTO) 195 K/uL (130-400); RED BLOOD CELL COUNT(AUTO) 3.35 MIL/uL (4.00-5.50); RED CELL DISTRIBUTION WIDTH 15.8 % (11.0-15.5); WHITE BLOOD COUNT (AUTO) 10.1 K/uL (4.8-10.8)
[2019-10-16 17:06] LABS: INR 1.18 (0.85-1.15); PARTIAL THROMBOPLASTIN TIME 71.3 SEC (26.3-35.5); PROTHROMBIN TIME 12.7 SEC (9.6-11.6)
[2019-10-16] MEDS: SODIUM BICARBONATE 650 MG TAB PO SCH ×2 (17:45→19:51)
[2019-10-16] MEDS: Vitamin B Complex/Vit C/Folic Acid PO SCH (17:45)
[2019-10-16] MEDS: FERROUS SULFATE 325 MG TABLET.DR PO SCH ×2 (17:45→19:51)
[2019-10-16] MEDS: CITALOPRAM 20 MG TABLET PO SCH (17:46)
[2019-10-16] MEDS: CEPHALEXIN 500 MG CAPSULE PO SCH ×2 (17:46→19:51)
[2019-10-16] MEDS: FAMOTIDINE/PF 20 MG/2 ML VIAL IV SCH (17:46)
[2019-10-16] MEDS: HONEY 1 APPL/ML TUBE TP SCH (21:19)
[2019-10-16] MEDS: TRAMADOL HCL 50 MG TABLET PO PRN (21:27)
[2019-10-16] MEDS: INSULIN GLARGINE 100 UNITS/ML 10 ML VIAL SQ SCH (21:39)
[2019-10-17] MEDS: HYDROMORPHONE 1 MG/1 ML AMP IVP PRN (01:37)
[2019-10-17] MEDS: GUAIFENESIN-DM 200/20 MG 10 ML PO SCH (03:48)
[2019-10-17 04:25] VITALS: BP 131/76
[2019-10-17 05:34] LABS: BASOPHILS % (AUTO) 0.2 % (0.0-5.0); EOSINOPHILS % (AUTO) 0.2 % (0.0-8.0); HEMATOCRIT 32.7 % (36-48); LYMPHOCYTES % (AUTO) 8.9 % (21.0-51.0); MEAN CORPUSCULAR HEMOGLOBIN 30.2 pg (27.0-33.0); MEAN CORPUSCULAR HGB CONC 31.5 g/dL (32.0-36.0); MEAN CORPUSCULAR VOLUME 95.9 fL (79-99); MONOCYTES % (AUTO) 8.4 % (3.0-13.0); NEUTROPHILS % (AUTO) 81.8 % (40.0-77.0); PLATELET COUNT (AUTO) 202 K/uL (130-400); RED BLOOD CELL COUNT(AUTO) 3.41 MIL/uL (4.00-5.50); RED CELL DISTRIBUTION WIDTH 15.4 % (11.0-15.5); WHITE BLOOD COUNT (AUTO) 12.5 K/uL (4.8-10.8)
[2019-10-17] MEDS: INSULIN LISPRO 100 UNIT/ML 3ML SQ SCH ×7 (05:45→20:07)
[2019-10-17 05:56] LABS: ALBUMIN 2.8 g/dL (3.5-5.0); BILIRUBIN,TOTAL 0.4 mg/dL (0.2-1.0); CREATININE 4.5 mg/dL (0.5-1.5); POTASSIUM 4.4 mmol/L (3.5-5.1); TOTAL PROTEIN, SERUM 7.2 g/dL (6.0-8.3)
[2019-10-17 06:02] LABS: INR 1.14 (0.85-1.15); PROTHROMBIN TIME 12.3 SEC (9.6-11.6)
[2019-10-17 07:34] VITALS: BP 144/84
[2019-10-17 08:10] LABS: HEPATITIS Bs ANTIGEN SCREEN P Negative (Negative)
[2019-10-17] MEDS: TRAMADOL HCL 50 MG TABLET PO PRN ×2 (08:55→13:36)
[2019-10-17] MEDS: SODIUM BICARBONATE 650 MG TAB PO SCH ×2 (08:58→20:11)
[2019-10-17] MEDS: NIFEDIPINE ER 30 MG TAB PO SCH (08:59)
[2019-10-17] MEDS: NYSTATIN 15 GM POWDER TP SCH ×2 (09:00→20:13)
[2019-10-17] MEDS: FUROSEMIDE 80 MG TABLET PO SCH ×2 (09:00→18:25)
[2019-10-17] MEDS: HYDRALAZINE HCL 10 MG TABLET PO SCH ×3 (09:00→20:12)
[2019-10-17] MEDS: CLOTRIMAZOLE/BETAMETHASONE DIP 45 GM CREAM.GM. TP SCH ×2 (09:00→20:13)
[2019-10-17] MEDS: CEPHALEXIN 500 MG CAPSULE PO SCH ×2 (09:01→20:11)
[2019-10-17] MEDS: Vitamin B Complex/Vit C/Folic Acid PO SCH (09:02)
[2019-10-17] MEDS: METOPROLOL TARTRATE 50 MG TAB PO SCH ×2 (09:02→21:00)
[2019-10-17] MEDS: CITALOPRAM 20 MG TABLET PO SCH (09:03)
[2019-10-17] MEDS: FERROUS SULFATE 325 MG TABLET.DR PO SCH ×2 (09:03→20:11)
[2019-10-17] MEDS: NYSTATIN 100000 UNIT/ML 5ML UDCUP PO SCH ×4 (09:04→20:12)
[2019-10-17] MEDS: FAMOTIDINE/PF 20 MG/2 ML VIAL IV SCH (09:05)
[2019-10-17] MEDS: INSULIN GLARGINE 100 UNITS/ML 10 ML VIAL SQ SCH ×2 (09:29→18:30)
[2019-10-17] MEDS: HEPARIN SODIUM 5000UNIT/ML 1ML VIAL SQ SCH ×2 (09:45→20:07)
[2019-10-17 10:56] VITALS: BP 116/64
[2019-10-17] MEDS ORDERED: HYDRALAZINE HCL 25 MG TABLET ONE (11:58)
[2019-10-17] MEDS: HONEY 1 APPL/ML TUBE TP SCH (14:23)
[2019-10-17 15:40] VITALS: BP 142/42
[2019-10-17] MEDS: ACETAMINOPHEN 325 MG TAB PO PRN (18:37)
[2019-10-17 20:06] VITALS: BP 119/49
[2019-10-17] MEDS: ATORVASTATIN CALCIUM 40 MG TABLET PO SCH (20:10)
[2019-10-18] VITALS (7 sets, daily range): BP systolic 110–134; BP diastolic 42–70
[2019-10-18] MEDS: INSULIN LISPRO 100 UNIT/ML 3ML SQ SCH ×7 (05:47→20:40)
[2019-10-18 06:19] LABS: BASOPHILS % (AUTO) 0.2 % (0.0-5.0); EOSINOPHILS % (AUTO) 1.4 % (0.0-8.0); HEMATOCRIT 31.8 % (36-48); LYMPHOCYTES % (AUTO) 9.1 % (21.0-51.0); MEAN CORPUSCULAR HEMOGLOBIN 29.6 pg (27.0-33.0); MEAN CORPUSCULAR HGB CONC 30.8 g/dL (32.0-36.0); MEAN CORPUSCULAR VOLUME 96.1 fL (79-99); MONOCYTES % (AUTO) 7.9 % (3.0-13.0); NEUTROPHILS % (AUTO) 80.6 % (40.0-77.0); PLATELET COUNT (AUTO) 168 K/uL (130-400); RED BLOOD CELL COUNT(AUTO) 3.31 MIL/uL (4.00-5.50); RED CELL DISTRIBUTION WIDTH 15.4 % (11.0-15.5); WHITE BLOOD COUNT (AUTO) 13.9 K/uL (4.8-10.8)
[2019-10-18 06:27] LABS: CREATININE 3.8 mg/dL (0.5-1.5); POTASSIUM 4.1 mmol/L (3.5-5.1)
[2019-10-18] MEDS: ACETAMINOPHEN 325 MG TAB PO PRN ×2 (08:52→20:39)
[2019-10-18] MEDS: INSULIN GLARGINE 100 UNITS/ML 10 ML VIAL SQ SCH ×2 (08:55→20:41)
[2019-10-18] MEDS: SODIUM BICARBONATE 650 MG TAB PO SCH ×2 (08:56→20:40)
[2019-10-18] MEDS: NYSTATIN 100000 UNIT/ML 5ML UDCUP PO SCH ×4 (08:56→20:40)
[2019-10-18] MEDS: FERROUS SULFATE 325 MG TABLET.DR PO SCH ×2 (08:56→20:40)
[2019-10-18] MEDS: NIFEDIPINE ER 30 MG TAB PO SCH (08:56)
[2019-10-18] MEDS: FUROSEMIDE 80 MG TABLET PO SCH ×2 (08:56→16:24)
[2019-10-18] MEDS: CLOTRIMAZOLE/BETAMETHASONE DIP 45 GM CREAM.GM. TP SCH ×2 (08:56→21:00)
[2019-10-18] MEDS: FAMOTIDINE/PF 20 MG/2 ML VIAL IV SCH (08:56)
[2019-10-18] MEDS: CEPHALEXIN 500 MG CAPSULE PO SCH ×2 (08:57→20:40)
[2019-10-18] MEDS: Vitamin B Complex/Vit C/Folic Acid PO SCH (08:57)
[2019-10-18] MEDS: CITALOPRAM 20 MG TABLET PO SCH (08:57)
[2019-10-18] MEDS: HYDRALAZINE HCL 10 MG TABLET PO SCH ×3 (08:58→21:00)
[2019-10-18] MEDS: NYSTATIN 15 GM POWDER TP SCH ×2 (08:58→21:00)
[2019-10-18] MEDS: METOPROLOL TARTRATE 50 MG TAB PO SCH ×2 (08:58→21:00)
[2019-10-18] MEDS: HEPARIN SODIUM 5000UNIT/ML 1ML VIAL SQ SCH (11:36)
--- NOTE | 2019-10-18 12:00 | NUR ---
SENT LAST OF NEEDED INFO TO [facility]- CALL TO [facility], CONFIRMED MISSING ELEMENTS- 3RD TX, (COMPLETED YESTERDAY 1630), PN'S, UP TO DATE MED LIST; WAS ADVISED FERNANDO IS THE INTAKE PERSON ON THIS REFERRAL AND WILL BE CALLING WITH AN ACCEPTANCE, AND THAT YES THERE ARE CHAIRS AVAILABLE AT [facility].
--- NOTE | 2019-10-18 14:15 | NUR ---
NEPHROLOGY DR. COBOS IN TO SEE PATIENT. NEW ORDERS RECEIVED AND CARRIED OUT.
--- NOTE | 2019-10-18 14:46 | NUR ---
RD FOLLOW UP NOTE NUTRITION EDUCATION NOTIFICATION RECEIVED. RD PROVIDED DIABETES AND DIALYSIS NUTRITION EDUCATION, PT HAD SPECIFIC QUESTIONS. NUTRITION EDUCATION PROVIDED OVER THE PHONE (ISOLATION PROTOCOL). REFERENCE MATERIALS AND HANDOUTS PLACED IN PT CHART. PT REPORTS GOOD APPETITE. RD TO CONTINUE TO MONITOR. PLEASE NOTIFY ADDITIONAL NUTRITION CONCERNS ARISE. THANK YOU. Addendum: 10/18/19 at [address] Amended: Links added.
--- NOTE | 2019-10-18 14:52 | NUR ---
NUTRITION EDUCATION RD PROVIDED DIABETES & DIALYSIS NUTRITION EDUCATION, VIA PHONE PER ISOLATION PROTOCOL. RD PROVIDED REFERENCE MATERIALS AND HANDOUTS, FLAGGED IN PT'S CHART. RD ANSWERED ALL OF PT QUESTIONS. PT VERBALIZED UNDERSTANDING. RD ENCOURAGED PT TO NOTIFY ADDITIONAL QUESTIONS OR CONCERNS ARISE. Addendum: 10/18/19 at [address] RD Amended: Links added.
[2019-10-18] MEDS: ATORVASTATIN CALCIUM 40 MG TABLET PO SCH (20:40)
[2019-10-18] MEDS: HONEY 1 APPL/ML TUBE TP SCH (21:00)
[2019-10-19] MEDS: HEPARIN SODIUM 5000UNIT/ML 1ML VIAL SQ SCH ×2 (01:28→11:49)
[2019-10-19 03:49] VITALS: BP 135/67
[2019-10-19 04:13] LABS: MEAN CORPUSCULAR HEMOGLOBIN 30.9 pg (27.0-33.0); MEAN CORPUSCULAR HGB CONC 32.6 g/dL (32.0-36.0); MEAN CORPUSCULAR VOLUME 94.8 fL (79-99); PLATELET COUNT (AUTO) 162 K/uL (130-400); RED BLOOD CELL COUNT(AUTO) 3.27 MIL/uL (4.00-5.50); RED CELL DISTRIBUTION WIDTH 15.3 % (11.0-15.5); WHITE BLOOD COUNT (AUTO) 14.9 K/uL (4.8-10.8)
[2019-10-19 04:26] LABS: CREATININE 3.7 mg/dL (0.5-1.5); POTASSIUM 3.7 mmol/L (3.5-5.1)
[2019-10-19 05:23] LABS: BAND NEUTROPHILS % (MANUAL) 1 % (0-2); BASOPHILS % (MANUAL) 1 % (0-2); EOSINOPHILS % (MANUAL) 1 % (1-6); LYMPHOCYTES % (MANUAL) 8 % (22-44); MONOCYTES % (MANUAL) 8 % (2-9); SEGMENTED NEUTROPHILS % 81 % (40-70)
[2019-10-19 05:24] LABS: MAN.DIFF COMMENT-IMPRESSION MANUAL DIFFERENTIAL; PLATELET MORPHOLOGY COMMENT ADEQUATE
[2019-10-19 08:12] VITALS: BP 160/65
[2019-10-19] MEDS: ACETAMINOPHEN 325 MG TAB PO PRN ×2 (08:18→15:13)
[2019-10-19] MEDS: INSULIN LISPRO 100 UNIT/ML 3ML SQ SCH ×5 (08:21→17:39)
[2019-10-19] MEDS: FERROUS SULFATE 325 MG TABLET.DR PO SCH ×2 (09:46→20:59)
[2019-10-19] MEDS: CEPHALEXIN 500 MG CAPSULE PO SCH ×2 (09:46→21:00)
[2019-10-19] MEDS: FAMOTIDINE/PF 20 MG/2 ML VIAL IV SCH (09:46)
[2019-10-19] MEDS: CITALOPRAM 20 MG TABLET PO SCH (09:46)
[2019-10-19] MEDS: SODIUM BICARBONATE 650 MG TAB PO SCH ×2 (09:47→20:59)
[2019-10-19] MEDS: FUROSEMIDE 80 MG TABLET PO SCH ×2 (09:47→17:30)
[2019-10-19] MEDS: Vitamin B Complex/Vit C/Folic Acid PO SCH (09:47)
[2019-10-19] MEDS: HYDRALAZINE HCL 10 MG TABLET PO SCH ×3 (09:47→20:59)
[2019-10-19] MEDS: NIFEDIPINE ER 30 MG TAB PO SCH (09:47)
[2019-10-19] MEDS: METOPROLOL TARTRATE 50 MG TAB PO SCH ×2 (09:47→20:59)
[2019-10-19] MEDS: CLOTRIMAZOLE/BETAMETHASONE DIP 45 GM CREAM.GM. TP SCH ×2 (09:48→21:18)
[2019-10-19] MEDS: NYSTATIN 15 GM POWDER TP SCH ×2 (09:48→21:18)
[2019-10-19] MEDS: INSULIN GLARGINE 100 UNITS/ML 10 ML VIAL SQ SCH ×2 (09:57→21:01)
[2019-10-19 11:00] VITALS: BP 139/62
[2019-10-19] MEDS: NYSTATIN 100000 UNIT/ML 5ML UDCUP PO SCH ×4 (13:33→20:59)
--- NOTE | 2019-10-19 14:00 | NUR ---
CM NOTE/PENDING DIALYSIS PER [facility], HEP B AND HD TREATMENTS UNDER REVIEW, PENDING DIALYSIS CHAIR DATE/TIME. PRIMARY NURSE, KALLI REIS, MADE AWARE.
--- NOTE | 2019-10-19 14:31 | NUR ---
DR INGRAM ROUNDED ON PATIENT ORDERS FOR CBC AND BMP IN AM AND PATIENT TO HAVE DIALYSIS
[2019-10-19 16:36] VITALS: BP 115/58
[2019-10-19 20:00] VITALS: BP 103/49
[2019-10-19] MEDS: ATORVASTATIN CALCIUM 40 MG TABLET PO SCH (20:59)
[2019-10-19] MEDS: HONEY 1 APPL/ML TUBE TP SCH (21:01)
[2019-10-19 23:58] VITALS: BP 117/50
[2019-10-20] MEDS: HEPARIN SODIUM 5000UNIT/ML 1ML VIAL SQ SCH ×2 (01:16→12:00)
[2019-10-20 04:00] VITALS: BP 133/55
[2019-10-20 04:24] LABS: BASOPHILS % (AUTO) 0.5 % (0.0-5.0); EOSINOPHILS % (AUTO) 3.2 % (0.0-8.0); HEMATOCRIT 31.3 % (36-48); LYMPHOCYTES % (AUTO) 12.9 % (21.0-51.0); MEAN CORPUSCULAR HEMOGLOBIN 29.6 pg (27.0-33.0); MEAN CORPUSCULAR HGB CONC 31.3 g/dL (32.0-36.0); MEAN CORPUSCULAR VOLUME 94.6 fL (79-99); MONOCYTES % (AUTO) 9.3 % (3.0-13.0); NEUTROPHILS % (AUTO) 73.7 % (40.0-77.0); PLATELET COUNT (AUTO) 170 K/uL (130-400); RED BLOOD CELL COUNT(AUTO) 3.31 MIL/uL (4.00-5.50); RED CELL DISTRIBUTION WIDTH 15.6 % (11.0-15.5); WHITE BLOOD COUNT (AUTO) 12.1 K/uL (4.8-10.8)
[2019-10-20 04:36] LABS: CREATININE 4.3 mg/dL (0.5-1.5)
[2019-10-20 07:52] VITALS: BP 113/54
[2019-10-20] MEDS: INSULIN LISPRO 100 UNIT/ML 3ML SQ SCH ×3 (08:00→17:26)
[2019-10-20] MEDS ORDERED: INSULIN GLARGINE 100 UNITS/ML 10 ML VIAL SQ SCH (09:00)
--- NOTE | 2019-10-20 09:21 | NUR ---
pt stating she feels like her blood sugar is low, glucometer 69, pt given apple juice to help raise it; she has not eaten her breakfast because she is in the process of getting her dialysis; will recheck and cont to monitor. note i did call dr Lakhani earlier to inform of low sugars during the night and received a voice mail; message left w/ my number. Note dr Cuello has decreased schedule insulin
--- NOTE | 2019-10-20 09:48 | NUR ---
CM NOTE/DAVITA CHAIR/TIME PER FERNANDO AT [facility], PATIENT APPROVED FOR DIALYSIS. SCHEDULED ON SUNDAY 10/22 AT 0500. PRIMARY NURSE, ABEBE REIS, MADE AWARE. WILL CALL PATIENT AND FAMILY TO REPORT DIALYSIS CHAIR/TIME.
[2019-10-20] MEDS: Vitamin B Complex/Vit C/Folic Acid PO SCH (10:43)
[2019-10-20] MEDS: SODIUM BICARBONATE 650 MG TAB PO SCH ×2 (10:43→21:12)
[2019-10-20] MEDS: CITALOPRAM 20 MG TABLET PO SCH (10:44)
[2019-10-20] MEDS: CEPHALEXIN 500 MG CAPSULE PO SCH (10:44)
[2019-10-20] MEDS: FERROUS SULFATE 325 MG TABLET.DR PO SCH ×2 (10:44→21:12)
[2019-10-20] MEDS: NIFEDIPINE ER 30 MG TAB PO SCH (10:44)
[2019-10-20] MEDS: METOPROLOL TARTRATE 50 MG TAB PO SCH ×2 (10:45→21:00)
[2019-10-20] MEDS: FUROSEMIDE 80 MG TABLET PO SCH ×2 (10:45→17:25)
[2019-10-20] MEDS: FAMOTIDINE/PF 20 MG/2 ML VIAL IV SCH (10:45)
[2019-10-20] MEDS: HYDRALAZINE HCL 10 MG TABLET PO SCH ×3 (10:49→21:12)
[2019-10-20] MEDS: NYSTATIN 100000 UNIT/ML 5ML UDCUP PO SCH ×4 (10:49→21:12)
[2019-10-20] MEDS: NYSTATIN 15 GM POWDER TP SCH ×2 (11:00→21:23)
[2019-10-20] MEDS: CLOTRIMAZOLE/BETAMETHASONE DIP 45 GM CREAM.GM. TP SCH ×2 (11:01→21:23)
[2019-10-20] MEDS: INSULIN GLARGINE 100 UNITS/ML 10 ML VIAL SQ SCH ×2 (11:03→21:23)
[2019-10-20 12:00] VITALS: BP 132/54
[2019-10-20] MEDS: ACETAMINOPHEN 325 MG TAB PO PRN (13:11)
[2019-10-20 16:00] VITALS: BP 131/50
--- NOTE | 2019-10-20 18:56 | NUR ---
DRESSING CHANGED TO RIGHT FOOT; PT HAS A HARD SCAB AREA ON POSTERIOR HEEL AND BELOW SINGLE DIGIT TOE THAT IS LEFT FROM PAST AMPUTATION; TERRI APPLIED AND WRAP; PT ERIC. PROC. WELL.
[2019-10-20 20:00] VITALS: BP 116/50
[2019-10-20] MEDS: ATORVASTATIN CALCIUM 40 MG TABLET PO SCH (21:12)
[2019-10-20] MEDS: HONEY 1 APPL/ML TUBE TP SCH (21:23)
[2019-10-20 23:39] VITALS: BP 117/50
[2019-10-21] MEDS: HEPARIN SODIUM 5000UNIT/ML 1ML VIAL SQ SCH ×2 (03:28→11:59)
[2019-10-21 04:01] VITALS: BP 130/56
[2019-10-21 05:17] LABS: BASOPHILS % (AUTO) 0.4 % (0.0-5.0); EOSINOPHILS % (AUTO) 1.9 % (0.0-8.0); HEMATOCRIT 31.1 % (36-48); LYMPHOCYTES % (AUTO) 9.4 % (21.0-51.0); MEAN CORPUSCULAR HEMOGLOBIN 30.7 pg (27.0-33.0); MEAN CORPUSCULAR HGB CONC 32.2 g/dL (32.0-36.0); MEAN CORPUSCULAR VOLUME 95.4 fL (79-99); MONOCYTES % (AUTO) 8.6 % (3.0-13.0); NEUTROPHILS % (AUTO) 79.1 % (40.0-77.0); PLATELET COUNT (AUTO) 157 K/uL (130-400); RED BLOOD CELL COUNT(AUTO) 3.26 MIL/uL (4.00-5.50); RED CELL DISTRIBUTION WIDTH 15.7 % (11.0-15.5); WHITE BLOOD COUNT (AUTO) 11.4 K/uL (4.8-10.8)
[2019-10-21 05:40] LABS: POTASSIUM 4.3 mmol/L (3.5-5.1)
[2019-10-21] MEDS: INSULIN GLARGINE 100 UNITS/ML 10 ML VIAL SQ SCH ×2 (07:47→09:30)
[2019-10-21 08:00] VITALS: BP 147/54
[2019-10-21] MEDS: METOPROLOL TARTRATE 50 MG TAB PO SCH (09:00)
[2019-10-21] MEDS: NYSTATIN 100000 UNIT/ML 5ML UDCUP PO SCH ×2 (09:00→11:59)
[2019-10-21] MEDS: NIFEDIPINE ER 30 MG TAB PO SCH (09:19)
[2019-10-21] MEDS: CITALOPRAM 20 MG TABLET PO SCH (09:19)
[2019-10-21] MEDS: HYDRALAZINE HCL 10 MG TABLET PO SCH (09:20)
[2019-10-21] MEDS: SODIUM BICARBONATE 650 MG TAB PO SCH (09:20)
[2019-10-21] MEDS: NYSTATIN 15 GM POWDER TP SCH (09:20)
[2019-10-21] MEDS: FUROSEMIDE 80 MG TABLET PO SCH (09:20)
[2019-10-21] MEDS: Vitamin B Complex/Vit C/Folic Acid PO SCH (09:20)
[2019-10-21] MEDS: FERROUS SULFATE 325 MG TABLET.DR PO SCH (09:20)
[2019-10-21] MEDS: CLOTRIMAZOLE/BETAMETHASONE DIP 45 GM CREAM.GM. TP SCH (09:21)
[2019-10-21] MEDS: FAMOTIDINE/PF 20 MG/2 ML VIAL IV SCH (09:21)
[2019-10-21] MEDS: INSULIN LISPRO 100 UNIT/ML 3ML SQ SCH ×2 (09:31→11:58)
[2019-10-21] MEDS: ACETAMINOPHEN 325 MG TAB PO PRN (09:34)
[2019-10-21 12:00] VITALS: BP 126/54
[2019-10-21] MEDS ORDERED: HYDR-3420 PO (12:57)
[2019-10-21] MEDS ORDERED: FURO80TA3 PO (12:57)
[2019-10-21] MEDS ORDERED: SODI650T PO (12:57)
[2019-10-21] MEDS ORDERED: ALLO100T PO (12:57)
--- NOTE | 2019-10-21 14:51 | NUR ---
DISCHARGE DISCHARGE INTRUCTIONS GIVEN TO PATIENT. VERBALIZED UNDERSTANDING. PATIENT HAS TO MAKE FOLLOW UP APPOINTMENTS WITH SEVERAL DIFFERENT MD'S, PT AWARE THAT SHE NEEDS TO SET HER OWN APPOINTMENTS. PRESCRIPTIONS SENT TO [facility]. IV DISCONTINUED. TELEPAK D/C'D.
== END 2019-10-21 14:55 | disposition home or self-care (01) | DRG 673 ==
LOC: EDH 19:20 → EDHIP 21:38 → 2AH 22:26 → 3AH 10-06 16:24
PROVIDERS: ADMIT Internal Medicine; ATTEND Internal Medicine
PROC: 5A09357 Assistance with Respiratory Ventilation, Less than 24 Consecutive Hours, Continuous Positive Airway Pressure (ICD-10-PCS; 2019-10-12)
PROC: 5A1D70Z Performance of Urinary Filtration, Intermittent, Less than 6 Hours Per Day (ICD-10-PCS; principal; 2019-10-13)
PROC: 0JH63XZ Insertion of Tunneled Vascular Access Device into Chest Subcutaneous Tissue and Fascia, Percutaneous Approach (ICD-10-PCS; 2019-10-13)
PROC: 02H633Z Insertion of Infusion Device into Right Atrium, Percutaneous Approach (ICD-10-PCS; 2019-10-13)
PROC: B548ZZA Ultrasonography of Superior Vena Cava, Guidance (ICD-10-PCS; 2019-10-13)
PROC: B5181ZA Fluoroscopy of Superior Vena Cava using Low Osmolar Contrast, Guidance (ICD-10-PCS; 2019-10-13)
PROC: 5A1D70Z Performance of Urinary Filtration, Intermittent, Less than 6 Hours Per Day (ICD-10-PCS; 2019-10-14)
PROC: 03180ZD Bypass Left Brachial Artery to Upper Arm Vein, Open Approach (ICD-10-PCS; 2019-10-16)
PROC: 3E0T3BZ Introduction of Anesthetic Agent into Peripheral Nerves and Plexi, Percutaneous Approach (ICD-10-PCS; 2019-10-16)
PROC: 5A1D70Z Performance of Urinary Filtration, Intermittent, Less than 6 Hours Per Day (ICD-10-PCS; 2019-10-17)
PROC: 5A1D70Z Performance of Urinary Filtration, Intermittent, Less than 6 Hours Per Day (ICD-10-PCS; 2019-10-18)
PROC: 5A1D70Z Performance of Urinary Filtration, Intermittent, Less than 6 Hours Per Day (ICD-10-PCS; 2019-10-20)
DX: N17.9 Acute kidney failure, unspecified (principal); J96.01 Acute respiratory failure with hypoxia; I50.33 Acute on chronic diastolic (congestive) heart failure; I13.2 Hypertensive heart and chronic kidney disease with heart failure and with stage 5 chronic kidney disease, or end stage renal disease; Z68.42 Body mass index [BMI] 45.0-49.9, adult; B37.0 Candidal stomatitis; I42.9 Cardiomyopathy, unspecified; J44.1 Chronic obstructive pulmonary disease with (acute) exacerbation; J98.11 Atelectasis; N39.0 Urinary tract infection, site not specified; E66.01 Morbid (severe) obesity due to excess calories; E11.22 Type 2 diabetes mellitus with diabetic chronic kidney disease; E11.51 Type 2 diabetes mellitus with diabetic peripheral angiopathy without gangrene; I25.10 Atherosclerotic heart disease of native coronary artery without angina pectoris; D64.9 Anemia, unspecified; E11.319 Type 2 diabetes mellitus with unspecified diabetic retinopathy without macular edema; E11.42 Type 2 diabetes mellitus with diabetic polyneuropathy; E11.65 Type 2 diabetes mellitus with hyperglycemia; E78.00 Pure hypercholesterolemia, unspecified; E78.5 Hyperlipidemia, unspecified; N18.6 End stage renal disease; R13.10 Dysphagia, unspecified; B96.1 Klebsiella pneumoniae [K. pneumoniae] as the cause of diseases classified elsewhere; Z79.4 Long term (current) use of insulin; Z79.899 Other long term (current) drug therapy; Z95.1 Presence of aortocoronary bypass graft; Z99.2 Dependence on renal dialysis; Z89.421 Acquired absence of other right toe(s); Z88.8 Allergy status to other drugs, medicaments and biological substances; Z82.49 Family history of ischemic heart disease and other diseases of the circulatory system; Z82.0 Family history of epilepsy and other diseases of the nervous system; Z91.041 Radiographic dye allergy status
CPT/HCPCS: 36415; 36558; 71045; 76770; 77001; 80048; 80053; 80061; 80076; 81001; 82040; 82550; 82565; 82728; 82948; 83036; 83540; 83550; 83735; 83880; 84100; 84145; 84484; 84520; 84550; 85014; 85018; 85025; 85027; 85610; 85730; 86701; 86704; 86706; 86850; 86900; 86901; 87077; 87088; 87186; 87340; 87390; 87493; 87520; 90935; 93005; 93306; 93970; 94660; 94664; 94760; 97039; 99156; 99157; C1750; G0378; J0690; J1100; J1170; J1644; J1815; J1940; J2001; J2250; J2405; J2440; J2543; J2704; J2795; J3010; J3490; J7030; J7070

== ENCOUNTER 2019-11-15 22:43 | Inpatient (IN) | payer OTHER ==
[~2019-11-15] VITALS: Ht 162.6 cm; Wt 112.5 kg
[~2019-11-15 22:43] MED LIST changes: -ASPI-1443 PO; -ERGO500014 PO; -ESCI10TA54 PO; +ESCI5TAB10 PO; +FOLI0.8T22 PO; -FOLI1TAB85 PO; -FURO-152 PO; +FURO80TA3 PO; +HYDR-3420 PO; -INSLAN SQ; -INSU100C14 SQ; +INSU500I SQ; +LACT10SO9 PO; -LOSA50TA64 PO; +METO100T14 PO; -METO50TA18 PO; +NIFE-40 PO; -PANT40TA54 PO; +SODI650T PO
[2019-11-15 23:51] LABS: BASOPHILS % (AUTO) 1.1 % (0.0-5.0); EOSINOPHILS % (AUTO) 3.8 % (0.0-8.0); HEMATOCRIT 36.1 % (36-48); LYMPHOCYTES % (AUTO) 16.3 % (21.0-51.0); MEAN CORPUSCULAR HEMOGLOBIN 30.4 pg (27.0-33.0); MEAN CORPUSCULAR HGB CONC 31.3 g/dL (32.0-36.0); MONOCYTES % (AUTO) 11.3 % (3.0-13.0); NEUTROPHILS % (AUTO) 66.5 % (40.0-77.0); PLATELET COUNT (AUTO) 298 K/uL (130-400); RED BLOOD CELL COUNT(AUTO) 3.72 MIL/uL (4.00-5.50); RED CELL DISTRIBUTION WIDTH 17.8 % (11.0-15.5); WHITE BLOOD COUNT (AUTO) 14.1 K/uL (4.8-10.8)
[2019-11-16] VITALS (7 sets, daily range): BP systolic 146–158; BP diastolic 52–69
[2019-11-16] LABS: CREATININE 2.5 mg/dL (0.5-1.5); POTASSIUM 3.7 mmol/L (3.5-5.1)
[2019-11-16 00:04] LABS: INR 1.18 (0.85-1.15); PARTIAL THROMBOPLASTIN TIME 33.1 SEC (26.3-35.5); PROTHROMBIN TIME 12.7 SEC (9.6-11.6)
[2019-11-16 00:05] LABS: ALBUMIN 2.3 g/dL (3.5-5.0); BILIRUBIN,TOTAL 0.4 mg/dL (0.2-1.0); TOTAL PROTEIN, SERUM 6.1 g/dL (6.0-8.3)
[2019-11-16] MEDS ORDERED: CLINDAMYCIN 600 MG/D5% WATER 50 ML IV ONE (00:18)
[2019-11-16] MEDS ORDERED: ONDANSETRON HCL 4 MG/2 ML VIAL IV PRN (00:30)
[2019-11-16] MEDS ORDERED: DEXTROSE 50%-WATER 50 ML DISP.SYRIN IV PRN (01:00)
[2019-11-16] MEDS ORDERED: GLUCAGON 1MG KIT 1 MG ML IM PRN (01:00)
[2019-11-16] MEDS ORDERED: DICY10CA13 PO (02:57)
[2019-11-16 05:45] LABS: BASOPHILS % (AUTO) 1.1 % (0.0-5.0); HEMATOCRIT 33.8 % (36-48); LYMPHOCYTES % (AUTO) 17.7 % (21.0-51.0); MEAN CORPUSCULAR HEMOGLOBIN 30.7 pg (27.0-33.0); MONOCYTES % (AUTO) 12.5 % (3.0-13.0); NEUTROPHILS % (AUTO) 62.7 % (40.0-77.0); PLATELET COUNT (AUTO) 283 K/uL (130-400); RED BLOOD CELL COUNT(AUTO) 3.52 MIL/uL (4.00-5.50); RED CELL DISTRIBUTION WIDTH 17.7 % (11.0-15.5); WHITE BLOOD COUNT (AUTO) 12.3 K/uL (4.8-10.8)
[2019-11-16] MEDS: CLINDAMYCIN 600 MG/D5% WATER 50 ML IV SCH ×2 (05:53→12:42)
[2019-11-16] MEDS: INSULIN HUMULIN R 100 UNIT/ML 3ML SQ SCH ×4 (05:54→18:24)
[2019-11-16 06:06] LABS: ALBUMIN 2.1 g/dL (3.5-5.0); BILIRUBIN,TOTAL 0.4 mg/dL (0.2-1.0); CREATININE 2.6 mg/dL (0.5-1.5); POTASSIUM 3.1 mmol/L (3.5-5.1); TOTAL PROTEIN, SERUM 5.7 g/dL (6.0-8.3)
--- NOTE | 2019-11-16 08:00 | NUR ---
PT SLEEPING IN BED, VS STABLE WILL CONTINUE. LEFT AV SITE HAS A AC BANDAGE AND NO LONGER BLEEDING. WILL CONTINUE TO MONITOR.
[2019-11-16] MEDS: FAMOTIDINE/PF 20 MG/2 ML VIAL IV SCH (08:48)
[2019-11-16] MEDS ORDERED: FAMOTIDINE/PF 20 MG/2 ML VIAL IV SCH (09:00)
--- NOTE | 2019-11-16 10:00 | NUR ---
DR. MACIAS SPOKE WITH PATIENT AT BEDSIDE AND LOOKED AT LEFT AVF AT THE AC JOINT, WOUND OPEN AND NO LONGER BLEEDING. DRESSING AND RIK BANDAGE.
--- NOTE | 2019-11-16 10:40 | NUR ---
DR. DRAKEED DR. GLOVER CONSULTED PER DR. PULLIAM. WAITING WINCHMAN/CRANE OPERATOR BACK
--- NOTE | 2019-11-16 10:50 | NUR ---
DR. PREEZ CALL BACK ORDER US DOPPLER OF UPPER EXTREMITY.
[2019-11-16] MEDS ORDERED: PHARMACY COMMUNICATION MISC SCH (11:45)
--- NOTE | 2019-11-16 11:52 | NUR ---
DCP CM met with pt discussed dc plans. Pt is independent prior to admission, lives at home with spouse, daughter lives close by. Pt has a cane, wheelchair, rollator walker, shower chair, has a HH unable to recall company, goes to [facility] MWF @ 0500. Denies nay other equipments/services. Feels safe to go back home, spouse and daugher able to assist with transportation and needs as necessary. DC plan to home once stable. CM to cont to follow up. Addendum: 11/16/19 at 1155 by PK HASSAN LVN CM Amended: Links added.
[2019-11-16] MEDS ORDERED: COMPOUND PO MISCELLANEOUS 1 EACH MISC MISC PRN (12:00)
[2019-11-16] MEDS: VANCOMYCIN 2 GM, SODIUM CHLORIDE 0.9% 80 ML PO SCH ×4 (14:18→14:25)
--- NOTE | 2019-11-16 14:28 | NUR ---
ALLERGIES PT REFUSED VANCOMYCIN STATED SHE WAS ALLERGIC MED. STATES SHE HAS A ITCHY THROAT, EAR, AND NAUSEA
[2019-11-16] MEDS ORDERED: LACTULOSE 20 GM/30 ML UDCUP PO PRN (17:45)
[2019-11-16] MEDS: METRONIDAZOLE 500 MG TABLET PO SCH ×2 (18:24→18:28)
--- NOTE | 2019-11-16 18:35 | NUR ---
AYSE PT REFUSED TO TAKE FLAGYL, STATED THAT SHE HAS TAKEN THIS MED BEFORE AND DOESN'T WORK FOR HER.
--- NOTE | 2019-11-16 18:35 | NUR ---
AYSE Lindsey EXPLAINED THE RATIONAL OF THIS MED AND PATIENT STILL REFUSED MED. PT SIGN A REFUSAL OF TX.
[2019-11-16] MEDS: INSULIN GLARGINE 100 UNITS/ML 10 ML VIAL SQ SCH ×2 (21:00→21:04)
[2019-11-16] MEDS: METOPROLOL TARTRATE 50 MG TAB PO SCH (21:02)
[2019-11-17] VITALS (31 sets, daily range): BP systolic 132–191; BP diastolic 50–95
[2019-11-17 04:03] LABS: HEMATOCRIT 34.4 % (36-48); MEAN CORPUSCULAR HEMOGLOBIN 30.2 pg (27.0-33.0); MEAN CORPUSCULAR HGB CONC 31.4 g/dL (32.0-36.0); MEAN CORPUSCULAR VOLUME 96.1 fL (79-99); RED BLOOD CELL COUNT(AUTO) 3.58 MIL/uL (4.00-5.50); RED CELL DISTRIBUTION WIDTH 17.8 % (11.0-15.5); WHITE BLOOD COUNT (AUTO) 11.5 K/uL (4.8-10.8)
[2019-11-17 04:17] LABS: CREATININE 3.2 mg/dL (0.5-1.5); PHOSPHORUS 3.7 mg/dL (2.5-4.9); POTASSIUM 3.5 mmol/L (3.5-5.1)
[2019-11-17 04:19] LABS: INR 1.14 (0.85-1.15); PARTIAL THROMBOPLASTIN TIME 31.6 SEC (26.3-35.5); PROTHROMBIN TIME 12.2 SEC (9.6-11.6)
[2019-11-17] MEDS: INSULIN HUMULIN R 100 UNIT/ML 3ML SQ SCH ×4 (06:00→18:00)
[2019-11-17] MEDS: FERROUS SULFATE 65 MG PO SCH ×2 (07:56→07:57)
[2019-11-17] MEDS: METOPROLOL TARTRATE 50 MG TAB PO SCH ×2 (07:56→22:16)
[2019-11-17] MEDS: Escitalopram Oxalate 5 MG PO SCH (07:56)
[2019-11-17] MEDS: ATORVASTATIN CALCIUM 40 MG TABLET PO SCH (07:56)
[2019-11-17] MEDS: FOLIC ACID/VITAMIN B COMP W-C 1 CAP TAB PO SCH (07:56)
[2019-11-17] MEDS: ALLOPURINOL 100 MG TABLET PO SCH (07:57)
[2019-11-17] MEDS: CLOPIDOGREL BISULFATE 75 MG TAB PO SCH (07:57)
[2019-11-17] MEDS: METRONIDAZOLE 500 MG TABLET PO SCH (08:45)
[2019-11-17] MEDS: FAMOTIDINE/PF 20 MG/2 ML VIAL IV SCH (09:23)
[2019-11-17] MEDS ORDERED: HYDROMORPHONE 1 MG/1 ML AMP IVP PRN (11:15)
[2019-11-17] MEDS ORDERED: HEPARIN SODIUM 5000UNIT/ML 1ML VIAL ONE (11:49)
[2019-11-17] MEDS ORDERED: HYDRALAZINE HCL 20 MG/ML VIAL IV PRN (12:30)
[2019-11-17] MEDS ORDERED: NITAZOXANIDE 500 MG TAB PO SCH (13:00)
[2019-11-17] MEDS ORDERED: METRONIDAZOLE 500MG/100ML BAG 100 ML IV SCH (14:00)
[2019-11-17] MEDS ORDERED: NITROGLYCERIN 0.4 MG SL TAB SL PRN (15:00)
[2019-11-17] MEDS ORDERED: LIDOCAINE HCL-MPF 1% 2ML VIAL IJ PRN (15:00)
[2019-11-17] MEDS ORDERED: 0.9% SODIUM CHLORIDE 1000 ML IV BAG IV PRN (15:00)
[2019-11-17] MEDS ORDERED: SODIUM CHLORIDE 0.9% 1000ML 1,000 ML IV PRN (15:00)
[2019-11-17] MEDS ORDERED: HEPARIN SODIUM 5000UNIT/ML 1ML VIAL IJ PRN ×2 (15:00)
[2019-11-17] MEDS ORDERED: ACETAMINOPHEN 325 MG TAB PO PRN (15:00)
[2019-11-17] MEDS: CEFAZOLIN SODIUM 1 GM VIAL IVP PRN ×2 (15:07→16:02)
[2019-11-17] MEDS ORDERED: CEFAZOLIN SODIUM 1 GM VIAL ONE (15:12)
[2019-11-17] MEDS ORDERED: ROPIVACAINE 0.5% 5MG/ML 30ML IJ ONE (15:37)
[2019-11-17] MEDS ORDERED: KETAMINE 50MG/ML SYRINGE 50 MG/ML DISP.SYRIN IV ONE (15:38)
[2019-11-17] MEDS ORDERED: MIDAZOLAM HCL 1 MG/ML 2ML VIAL ONE ×2 (15:38→15:52)
[2019-11-17] MEDS ORDERED: DEXAMETHASONE SOD PHOSPHATE 10MG/ML 1ML VIAL ONE (15:49)
[2019-11-17] MEDS ORDERED: ONDANSETRON HCL 4 MG/2 ML VIAL ONE ×2 (15:49→17:50)
[2019-11-17] MEDS ORDERED: LIDOCAINE PF 2% 5ML ABBOJECT ONE (15:49)
[2019-11-17] MEDS ORDERED: ROCURONIUM 10MG/1ML SYR 10 MG/ML ML ONE (15:52)
[2019-11-17] MEDS ORDERED: FENTANYL CITRATE PF 50 MCG/1 ML 2ML VIAL ONE (15:52)
[2019-11-17] MEDS ORDERED: PROPOFOL 10 MG/ML 20ML VIAL IV ONE (15:52)
--- NOTE | 2019-11-17 16:57 | NUR ---
[facility] consult Patient assessed as ordered. Wound care recommendation submitted. Patient is pending surgical consult. Addendum: 11/17/19 at 1658 by HENRRY MOJICA RN/ Amended: Links added.
[2019-11-17] MEDS: INSULIN LISPRO 100 UNIT/ML 3ML SQ SCH (17:00)
[2019-11-17] MEDS ORDERED: ALBUMIN (HUMAN) 25% 100 ML IV ONE (17:20)
[2019-11-17] MEDS ORDERED: PROTAMINE SULFATE 10 MG/ML 25ML VIAL IV ONE (17:50)
[2019-11-17] MEDS ORDERED: HEPARIN SODIUM 1000UNIT/ML 10ML VIAL ONE (17:50)
[2019-11-17] MEDS ORDERED: NEOSTIGMINE 5MG/5ML SYR IV ONE (17:51)
[2019-11-17] MEDS ORDERED: GLYCOPYRROLATE 1 MG/5 ML SYRINGE ONE (17:51)
[2019-11-17 17:54] LABS: CREATININE 2.2 mg/dL (0.5-1.5); POTASSIUM 3.1 mmol/L (3.5-5.1)
[2019-11-17] MEDS ORDERED: SUGAMMADEX SODIUM 200 MG/2 ML VIAL IV ONE (18:22)
[2019-11-17] MEDS ORDERED: MEPERIDINE-PF 25 MG/ML SYG ONE ×2 (18:57→19:11)
[2019-11-17] MEDS ORDERED: LABETALOL HCL 5 MG/ML 20ML VIAL IV ONE (19:05)
--- NOTE | 2019-11-17 20:07 | NUR ---
POST OP RECEIVED PT FROM NILAY RN. PT AROUSABLE TO SOUND/LIGHT TOUCH. WOUND VAC ON, CONT RUNNING AT 125 TO LEFT ARM. DRESSING DRY AND INTACT. BP 153/65, HR 78, R 18, 98% ON 2L. POST OP VITAL MACHINE CONNECTED FOR 30 MINUTE INTERVAL MONITORING. CALL LIGHT IN REACH, BED LOCKED IN LOWEST POSITION.
[2019-11-17] MEDS: NITAZOXANIDE 500 MG TAB PO SCH (22:16)
[2019-11-17] MEDS: TRAMADOL HCL 50 MG TABLET PO PRN (22:30)
[2019-11-17] MEDS: INSULIN GLARGINE 100 UNITS/ML 10 ML VIAL SQ SCH (22:43)
[2019-11-18] VITALS (9 sets, daily range): BP systolic 115–159; BP diastolic 53–75
[2019-11-18] MEDS ORDERED: POTASSIUM CHLORIDE 20 MEQ ERTAB PO ONE ×2 (03:30→05:37)
[2019-11-18] MEDS ORDERED: INSULIN HUMULIN R 100 UNIT/ML 3ML ONE (05:36)
[2019-11-18] MEDS: INSULIN GLARGINE 100 UNITS/ML 10 ML VIAL SQ SCH ×2 (05:52→22:04)
[2019-11-18] MEDS: INSULIN LISPRO 100 UNIT/ML 3ML SQ SCH ×3 (05:53→17:00)
[2019-11-18 06:26] LABS: BASOPHILS % (AUTO) 0.9 % (0.0-5.0); EOSINOPHILS % (AUTO) 4.1 % (0.0-8.0); HEMATOCRIT 37.8 % (36-48); LYMPHOCYTES % (AUTO) 16.9 % (21.0-51.0); MEAN CORPUSCULAR HEMOGLOBIN 30.3 pg (27.0-33.0); MEAN CORPUSCULAR HGB CONC 31.5 g/dL (32.0-36.0); MEAN CORPUSCULAR VOLUME 96.2 fL (79-99); MONOCYTES % (AUTO) 12.6 % (3.0-13.0); NEUTROPHILS % (AUTO) 63.5 % (40.0-77.0); PLATELET COUNT (AUTO) 226 K/uL (130-400); RED BLOOD CELL COUNT(AUTO) 3.93 MIL/uL (4.00-5.50); RED CELL DISTRIBUTION WIDTH 17.7 % (11.0-15.5); WHITE BLOOD COUNT (AUTO) 11.6 K/uL (4.8-10.8)
[2019-11-18 06:44] LABS: CREATININE 3.3 mg/dL (0.5-1.5); MAGNESIUM 1.8 mg/dL (1.80-2.40); POTASSIUM 3.7 mmol/L (3.5-5.1)
[2019-11-18] MEDS ORDERED: INSULIN HUMULIN R 100 UNIT/ML 3ML SQ SCH (07:30)
[2019-11-18 08:10] LABS: HEPATITIS Bs ANTIGEN SCREEN P Negative (Negative)
[2019-11-18 08:10] LABS: HEPATITIS A ANTIBODY IGM Negative (Negative); HEPATITIS B CORE IGM Negative (Negative); HEPATITIS Bs ANTIGEN SCREEN P Negative (Negative)
[2019-11-18] MEDS: CLOPIDOGREL BISULFATE 75 MG TAB PO SCH (09:00)
[2019-11-18] MEDS: Escitalopram Oxalate 5 MG PO SCH (09:00)
[2019-11-18] MEDS: FERROUS SULFATE 65 MG PO SCH ×2 (09:00→22:17)
[2019-11-18] MEDS: FOLIC ACID/VITAMIN B COMP W-C 1 CAP TAB PO SCH (09:20)
[2019-11-18] MEDS: NITAZOXANIDE 500 MG TAB PO SCH ×2 (09:20→22:07)
[2019-11-18] MEDS: FAMOTIDINE/PF 20 MG/2 ML VIAL IV SCH (09:24)
[2019-11-18] MEDS: ATORVASTATIN CALCIUM 40 MG TABLET PO SCH (09:24)
[2019-11-18] MEDS: ALLOPURINOL 100 MG TABLET PO SCH (09:24)
[2019-11-18] MEDS: METOPROLOL TARTRATE 50 MG TAB PO SCH ×2 (09:24→22:07)
--- NOTE | 2019-11-18 09:40 | NUR ---
VERBAL ORDER FROM DR LOPEZ TO HOLD PLAVIX TODAY DUE TO PT'S INCREASED BLEEDING
[2019-11-18] MEDS: ACETAMINOPHEN 325 MG TAB PO PRN ×2 (11:29→18:03)
[2019-11-18] MEDS: INSULIN HUMULIN R 100 UNIT/ML 3ML SQ SCH ×4 (11:32→22:06)
[2019-11-19] VITALS: BP 141/70
[2019-11-19 03:39] VITALS: BP 139/70
--- NOTE | 2019-11-19 04:00 | NUR ---
POST OP WOUND Pt with the left forearm wound to the wound vac drain, noted the lower part of the left forearm with a small dressing on top of it that is leaking a little bit. Kerlix dressing applied to the left lower forearm to apply pressure on the leaking incision and will lt Dr. Bush look at it on rounds. Will let the am nurse know about it so they can follow up with the MD in am on rounds.
[2019-11-19 05:26] LABS: BASOPHILS % (AUTO) 1.3 % (0.0-5.0); EOSINOPHILS % (AUTO) 7.9 % (0.0-8.0); HEMATOCRIT 36.7 % (36-48); LYMPHOCYTES % (AUTO) 17.3 % (21.0-51.0); MEAN CORPUSCULAR HEMOGLOBIN 30.1 pg (27.0-33.0); MEAN CORPUSCULAR HGB CONC 31.1 g/dL (32.0-36.0); MEAN CORPUSCULAR VOLUME 96.8 fL (79-99); MONOCYTES % (AUTO) 14.6 % (3.0-13.0); NEUTROPHILS % (AUTO) 56.5 % (40.0-77.0); PLATELET COUNT (AUTO) 219 K/uL (130-400); RED BLOOD CELL COUNT(AUTO) 3.79 MIL/uL (4.00-5.50); RED CELL DISTRIBUTION WIDTH 18.1 % (11.0-15.5); WHITE BLOOD COUNT (AUTO) 10.1 K/uL (4.8-10.8)
[2019-11-19 05:40] LABS: CREATININE 4.3 mg/dL (0.5-1.5); POTASSIUM 3.5 mmol/L (3.5-5.1)
[2019-11-19] MEDS: INSULIN HUMULIN R 100 UNIT/ML 3ML SQ SCH ×4 (06:39→19:59)
[2019-11-19] MEDS: INSULIN GLARGINE 100 UNITS/ML 10 ML VIAL SQ SCH ×2 (07:18→19:59)
[2019-11-19] MEDS: INSULIN LISPRO 100 UNIT/ML 3ML SQ SCH ×3 (07:20→16:55)
[2019-11-19 08:00] VITALS: BP 167/66
[2019-11-19] MEDS: Escitalopram Oxalate 5 MG PO SCH (09:00)
[2019-11-19] MEDS: FERROUS SULFATE 65 MG PO SCH ×2 (09:00→20:06)
[2019-11-19] MEDS: CLOPIDOGREL BISULFATE 75 MG TAB PO SCH (09:00)
[2019-11-19] MEDS: NITAZOXANIDE 500 MG TAB PO SCH ×3 (09:55→21:15)
[2019-11-19] MEDS: ALLOPURINOL 100 MG TABLET PO SCH (09:55)
[2019-11-19] MEDS: ATORVASTATIN CALCIUM 40 MG TABLET PO SCH (09:55)
[2019-11-19] MEDS: METOPROLOL TARTRATE 50 MG TAB PO SCH ×2 (09:55→20:05)
[2019-11-19] MEDS: FAMOTIDINE/PF 20 MG/2 ML VIAL IV SCH (09:55)
[2019-11-19] MEDS: FOLIC ACID/VITAMIN B COMP W-C 1 CAP TAB PO SCH (09:55)
[2019-11-19] MEDS: ACETAMINOPHEN 325 MG TAB PO PRN ×2 (10:00→20:05)
--- NOTE | 2019-11-19 10:09 | NUR ---
i spoke on the phone to dr moss and informed him of need to sign form for home health wound vac and he stated he had already left the hospital and would sign it tomorrow.
--- NOTE | 2019-11-19 10:34 | NUR ---
I informed dr Lau of serosanginous drainage from small dressing distal to wound vac dressing on left arm and he stated to go ahead and change the dressing; pt has a well approx. inc.line with sutures in place, small amount of fresh bloody drainage noted, the inc. line is approx. 1 1/2 inches long; surrounding tissue normal in appeance; 4x4 gauze ad medipore tape applied; pt trinh .well
[2019-11-19 12:00] VITALS: BP 134/60
[2019-11-19 16:00] VITALS: BP 165/66
[2019-11-19] MEDS: TRAMADOL HCL 50 MG TABLET PO PRN ×3 (17:22→21:15)
[2019-11-19 19:00] VITALS: BP 163/79
[2019-11-20] VITALS (7 sets, daily range): BP systolic 113–161; BP diastolic 43–78
[2019-11-20] MEDS: ACETAMINOPHEN 325 MG TAB PO PRN ×3 (03:32→12:34)
[2019-11-20] MEDS: INSULIN LISPRO 100 UNIT/ML 3ML SQ SCH ×3 (05:12→17:00)
[2019-11-20] MEDS: INSULIN GLARGINE 100 UNITS/ML 10 ML VIAL SQ SCH ×2 (05:12→21:00)
[2019-11-20] MEDS: INSULIN HUMULIN R 100 UNIT/ML 3ML SQ SCH ×4 (05:12→21:00)
[2019-11-20 08:15] LABS: BASOPHILS % (AUTO) 0.8 % (0.0-5.0); EOSINOPHILS % (AUTO) 0.8 % (0.0-8.0); HEMATOCRIT 39.6 % (36-48); LYMPHOCYTES % (AUTO) 7.6 % (21.0-51.0); MEAN CORPUSCULAR HEMOGLOBIN 30.1 pg (27.0-33.0); MEAN CORPUSCULAR HGB CONC 31.6 g/dL (32.0-36.0); MEAN CORPUSCULAR VOLUME 95.4 fL (79-99); MONOCYTES % (AUTO) 5.1 % (3.0-13.0); NEUTROPHILS % (AUTO) 84.3 % (40.0-77.0); PLATELET COUNT (AUTO) 272 K/uL (130-400); RED BLOOD CELL COUNT(AUTO) 4.15 MIL/uL (4.00-5.50); RED CELL DISTRIBUTION WIDTH 17.7 % (11.0-15.5); WHITE BLOOD COUNT (AUTO) 20.1 K/uL (4.8-10.8)
[2019-11-20 08:26] LABS: CREATININE 4.3 mg/dL (0.5-1.5); POTASSIUM 3.9 mmol/L (3.5-5.1)
[2019-11-20] MEDS: TRAMADOL HCL 50 MG TABLET PO PRN (08:37)
[2019-11-20] MEDS: ALLOPURINOL 100 MG TABLET PO SCH (09:00)
[2019-11-20] MEDS: ATORVASTATIN CALCIUM 40 MG TABLET PO SCH (09:00)
[2019-11-20] MEDS: Escitalopram Oxalate 5 MG PO SCH (09:00)
[2019-11-20] MEDS: FERROUS SULFATE 65 MG PO SCH ×2 (09:00→21:00)
[2019-11-20] MEDS: NITAZOXANIDE 500 MG TAB PO SCH ×2 (09:00→21:14)
[2019-11-20] MEDS: FOLIC ACID/VITAMIN B COMP W-C 1 CAP TAB PO SCH (09:00)
[2019-11-20] MEDS: METOPROLOL TARTRATE 50 MG TAB PO SCH ×2 (09:00→21:14)
[2019-11-20] MEDS: CLOPIDOGREL BISULFATE 75 MG TAB PO SCH (09:00)
[2019-11-20] MEDS: FAMOTIDINE/PF 20 MG/2 ML VIAL IV SCH (09:00)
--- NOTE | 2019-11-20 11:00 | NUR ---
HOSPITALIST CAME TO SEE PATIENT AT BEDSIDE NO NEW ORDERS AT THIS TIME.
--- NOTE | 2019-11-20 11:15 | NUR ---
WOUND CARE WOUND CARE WAS CALLED TO COME AND SEE WOUND THIS AFTERNOON.
--- NOTE | 2019-11-20 13:08 | NUR ---
[facility] consult Patient assessed as ordered. Wound bed with < 20% slough; appropriate for wound vac. Incisions to forearm and wrist with sutures intact; no drainage noted. Wound vac applied using black foam at 125mmHg continuous suction. Patient tolerated application without adverse effects. Report given to patient's nurse, Joao REIS. Addendum: 11/20/19 at 1311 by HENRRY MOJICA RN/ Amended: Links added.
--- NOTE | 2019-11-20 15:32 | NUR ---
RD NOTIFICATION Pt admitted for Bleeding Post surgical incision. Wound-VAC in place. Pt tolerating 75gm CC, Renal Dialysis diet order. Attempt at phone interview x1, no answer. Pt with ESRD, DM, CAD, CABG. Recommend continue current diet order. RD to follow up with nutrition education. Recommend Adama BID, 500mg Vitamin C, 220mg ZnSO4 for wound healing support. RD to follow up. Please notify as additional nutrition concerns arise. Thank you. Addendum: 11/20/19 at [address] Amended: Links added.
--- NOTE | 2019-11-20 19:20 | NUR ---
DIALYSIS PT HAS BEEN RECEIVING DIALYSIS FOR AN HOUR STATING SHE FEEL REAL COLD AND ITS HURTING HER. TEMP WAS TAKEN NO FEVER PRESENT.
--- NOTE | 2019-11-20 19:42 | NUR ---
DIALYSIS DR. COBOS WAS CALLED NOTIFIED BY DIALYSIS NURSE MERARI REIS, PT WANTED TO STOP TX. PT SIGNED A REFUSAL FOR TREATMENT. TOTAL OF DIALYSIS TIME WAS ONE HOUR.
[2019-11-20] MEDS: CEFTAZIDIME PENTAHYDRATE 1 GM/VIAL IVP SCH (21:14)
[2019-11-21 04:00] VITALS: BP 115/39
[2019-11-21 05:02] LABS: HEMATOCRIT 35.6 % (36-48); MEAN CORPUSCULAR HEMOGLOBIN 29.8 pg (27.0-33.0); MEAN CORPUSCULAR HGB CONC 31.7 g/dL (32.0-36.0); MEAN CORPUSCULAR VOLUME 93.9 fL (79-99); RED BLOOD CELL COUNT(AUTO) 3.79 MIL/uL (4.00-5.50); RED CELL DISTRIBUTION WIDTH 17.5 % (11.0-15.5); WHITE BLOOD COUNT (AUTO) 18.4 K/uL (4.8-10.8)
[2019-11-21 05:29] LABS: ALBUMIN 2.2 g/dL (3.5-5.0); ASPARTATE AMINOTRANSFERASE 25 U/L (10-37); BILIRUBIN,TOTAL 0.5 mg/dL (0.2-1.0); CARBON DIOXIDE 24 mmol/L (21-32); CHLORIDE 99 mmol/L (101-111); CREATININE 3.8 mg/dL (0.5-1.5); GLOMERULAR FILTR. RATE CALC 13 mL/min (>60); GLUCOSE,RANDOM 156 mg/dL (70-105); SODIUM SERUM 134 mmol/L (136-145); TOTAL PROTEIN, SERUM 5.8 g/dL (6.0-8.3); UREA NITROGEN, BLOOD 24 mg/dL (7-18)
[2019-11-21 06:07] LABS: ALANINE AMINOTRANSFERASE < 6 U/L (12-78)
[2019-11-21] MEDS: INSULIN HUMULIN R 100 UNIT/ML 3ML SQ SCH ×4 (07:30→21:00)
[2019-11-21 08:00] VITALS: BP 133/61
[2019-11-21] MEDS: FAMOTIDINE/PF 20 MG/2 ML VIAL IV SCH (08:35)
[2019-11-21] MEDS: INSULIN LISPRO 100 UNIT/ML 3ML SQ SCH ×3 (08:35→17:20)
[2019-11-21] MEDS: NITAZOXANIDE 500 MG TAB PO SCH ×2 (08:36→21:24)
[2019-11-21] MEDS: FOLIC ACID/VITAMIN B COMP W-C 1 CAP TAB PO SCH (08:36)
[2019-11-21] MEDS: METOPROLOL TARTRATE 50 MG TAB PO SCH ×2 (08:37→21:24)
[2019-11-21] MEDS: ATORVASTATIN CALCIUM 40 MG TABLET PO SCH (08:37)
[2019-11-21] MEDS: ALLOPURINOL 100 MG TABLET PO SCH (08:37)
[2019-11-21] MEDS ORDERED: CLOPIDOGREL BISULFATE 75 MG TAB ONE (08:48)
[2019-11-21] MEDS: INSULIN GLARGINE 100 UNITS/ML 10 ML VIAL SQ SCH ×2 (08:51→21:00)
[2019-11-21] MEDS: CLOPIDOGREL BISULFATE 75 MG TAB PO SCH (08:52)
[2019-11-21] MEDS: FERROUS SULFATE 65 MG PO SCH ×2 (09:00→21:00)
[2019-11-21] MEDS: Escitalopram Oxalate 5 MG PO SCH (09:03)
[2019-11-21] MEDS: CEFTAZIDIME PENTAHYDRATE 1 GM/VIAL IVP SCH (11:08)
[2019-11-21 11:27] VITALS: BP 157/66
--- NOTE | 2019-11-21 14:37 | NUR ---
NUTRITION EDUCATION Pt with Contact Isolation on door. SANDI provided Dialysis and Weight Loss Nutrition handouts in Pt chart. Attempt x2 to contact via phone, no answer. Reference materials provided. Please notify as additional concerns arise. Thank you. Addendum: 11/21/19 at [address] Amended: Links added.
[2019-11-21 16:00] VITALS: BP 118/50
--- NOTE | 2019-11-21 17:57 | NUR ---
CM NOTE/PENDING MD SIGNATURE MD ROUNDED BUT DID NOT SEE FLAGGED [facility] PAPERWORK THAT WAS PENDING SIGNATURE. PENDING MD SIGNATURE TO PROCESS [facility] ORDER. PRIMARY NURSE, PRSICILA REIS, MADE AWARE.
[2019-11-21 20:47] VITALS: BP 136/54
[2019-11-21 23:57] VITALS: BP 137/37
[2019-11-22 03:26] VITALS: BP 102/60
[2019-11-22 06:13] LABS: HEMATOCRIT 36.6 % (36-48); MEAN CORPUSCULAR HEMOGLOBIN 30.6 pg (27.0-33.0); MEAN CORPUSCULAR HGB CONC 33.1 g/dL (32.0-36.0); MEAN CORPUSCULAR VOLUME 92.7 fL (79-99); PLATELET COUNT (AUTO) 212 K/uL (130-400); RED BLOOD CELL COUNT(AUTO) 3.95 MIL/uL (4.00-5.50); RED CELL DISTRIBUTION WIDTH 17.3 % (11.0-15.5); WHITE BLOOD COUNT (AUTO) 13.2 K/uL (4.8-10.8)
[2019-11-22] MEDS: INSULIN HUMULIN R 100 UNIT/ML 3ML SQ SCH ×4 (06:14→20:48)
[2019-11-22] MEDS: ACETAMINOPHEN 325 MG TAB PO PRN ×2 (06:28→15:02)
--- NOTE | 2019-11-22 06:29 | NUR ---
PT WANTS TO WAIT UNTIL AFTER BREAKFAST FOR INSULIN ADMINISTRATION REFUSES THEM AT THIS TIME
[2019-11-22 06:39] LABS: ALBUMIN 2.4 g/dL (3.5-5.0); ASPARTATE AMINOTRANSFERASE 25 U/L (10-37); BILIRUBIN,TOTAL 0.5 mg/dL (0.2-1.0); CARBON DIOXIDE 26 mmol/L (21-32); CHLORIDE 101 mmol/L (101-111); CREATININE 3.5 mg/dL (0.5-1.5); GLOMERULAR FILTR. RATE CALC 14 mL/min (>60); GLUCOSE,RANDOM 132 mg/dL (70-105); POTASSIUM 3.5 mmol/L (3.5-5.1); SODIUM SERUM 136 mmol/L (136-145); TOTAL PROTEIN, SERUM 6.3 g/dL (6.0-8.3); UREA NITROGEN, BLOOD 26 mg/dL (7-18)
[2019-11-22 07:16] LABS: ALANINE AMINOTRANSFERASE < 6 U/L (12-78)
[2019-11-22] MEDS: INSULIN LISPRO 100 UNIT/ML 3ML SQ SCH ×3 (07:30→16:52)
[2019-11-22] MEDS: INSULIN GLARGINE 100 UNITS/ML 10 ML VIAL SQ SCH ×2 (07:30→20:57)
[2019-11-22 07:37] VITALS: BP 107/44
[2019-11-22] MEDS: FERROUS SULFATE 65 MG PO SCH ×2 (09:00→20:37)
[2019-11-22] MEDS: Escitalopram Oxalate 5 MG PO SCH (09:00)
[2019-11-22] MEDS: CLOPIDOGREL BISULFATE 75 MG TAB PO SCH (09:00)
[2019-11-22 09:10] LABS: EOSINOPHILS % (MANUAL) 2 % (1-6); LYMPHOCYTES % (MANUAL) 14 % (22-44); MAN.DIFF COMMENT-IMPRESSION MANUAL DIFFERENTIAL; MONOCYTES % (MANUAL) 2 % (2-9); PLATELET MORPHOLOGY COMMENT ADEQUATE; SEGMENTED NEUTROPHILS % 82 % (40-70)
[2019-11-22 10:50] VITALS: BP 155/67
[2019-11-22] MEDS: FOLIC ACID/VITAMIN B COMP W-C 1 CAP TAB PO SCH (12:10)
[2019-11-22] MEDS: ALLOPURINOL 100 MG TABLET PO SCH (12:11)
[2019-11-22] MEDS: FAMOTIDINE/PF 20 MG/2 ML VIAL IV SCH (12:11)
[2019-11-22] MEDS: ATORVASTATIN CALCIUM 40 MG TABLET PO SCH (12:11)
[2019-11-22] MEDS: NITAZOXANIDE 500 MG TAB PO SCH ×2 (12:11→20:36)
[2019-11-22] MEDS: METOPROLOL TARTRATE 50 MG TAB PO SCH ×2 (12:13→20:37)
[2019-11-22] MEDS: CEFTAZIDIME PENTAHYDRATE 1 GM/VIAL IVP SCH (12:14)
[2019-11-22 15:45] VITALS: BP 142/34
[2019-11-22] MEDS: HONEY 1 APPL/ML TUBE TP SCH (16:43)
--- NOTE | 2019-11-22 17:00 | NUR ---
WOUND CARE WOUND VAC TO LEFT FOREARM LAVA SITE CHANGED. NEW DRESSING IN PLACE WITH WOUND VAC AT 125MMHG. DRESSINGS TO LEFT FOREARM INCISIONS AND RIGHT FOOT 1ST -3RD AMPUTATION SITE CHANGED. PATIENT VOICED NO DISCOMFORT DURING PROCEDURE.
--- NOTE | 2019-11-22 17:24 | NUR ---
CM NOTE/PREVIOUS HH CALLED DANNY, DAUGHTER, REGARDING DC PLANNING. PER DAUGHTER, PATIENT IS TO RETURN HOME BUT WANTS TO CHANGE HH COMPANIES TO [facility]. PER DAUGHTER, [facility] SAID THEY CAN TAKE HER UNDER SERVICES. DAUGHTER UNABLE TO RECALL NAME OF PREVIOUS HH WITH PATIENT. PER DAUGHTER, WILL LOOK FOR COMPANY NAME AND GET BACK TO ME. REFERRAL FOR DC HOME WITH HH WITH [facility]. DAUGHTER INFORMED OF [facility] AND WOUND CARE, FEELS COMFORTABLE FOR MOTHER TO RETURN HOME WITH WOUND VAC AND HH. CM TO FOLLOW UP.
[2019-11-22 20:00] VITALS: BP 114/42
[2019-11-22 21:23] LABS: HEMATOCRIT 36.7 % (36-48)
[2019-11-23 00:40] VITALS: BP 123/48
[2019-11-23 03:49] VITALS: BP 140/63
[2019-11-23 04:06] LABS: HEMATOCRIT 34.3 % (36-48); MEAN CORPUSCULAR HEMOGLOBIN 30.1 pg (27.0-33.0); MEAN CORPUSCULAR HGB CONC 32.7 g/dL (32.0-36.0); MEAN CORPUSCULAR VOLUME 92.2 fL (79-99); RED BLOOD CELL COUNT(AUTO) 3.72 MIL/uL (4.00-5.50); RED CELL DISTRIBUTION WIDTH 16.6 % (11.0-15.5); WHITE BLOOD COUNT (AUTO) 11.1 K/uL (4.8-10.8)
[2019-11-23 04:28] LABS: ALBUMIN 2.4 g/dL (3.5-5.0); BILIRUBIN,TOTAL 0.4 mg/dL (0.2-1.0); POTASSIUM 3.6 mmol/L (3.5-5.1); TOTAL PROTEIN, SERUM 6.1 g/dL (6.0-8.3)
[2019-11-23] MEDS: INSULIN LISPRO 100 UNIT/ML 3ML SQ SCH ×3 (04:48→16:59)
[2019-11-23] MEDS: INSULIN HUMULIN R 100 UNIT/ML 3ML SQ SCH ×4 (04:48→20:15)
[2019-11-23] MEDS: INSULIN GLARGINE 100 UNITS/ML 10 ML VIAL SQ SCH ×2 (04:49→20:05)
[2019-11-23 07:30] VITALS: BP 157/71
[2019-11-23] MEDS: Escitalopram Oxalate 5 MG PO SCH (09:00)
[2019-11-23] MEDS: CLOPIDOGREL BISULFATE 75 MG TAB PO SCH (09:00)
[2019-11-23] MEDS: FERROUS SULFATE 65 MG PO SCH ×2 (09:00→20:10)
[2019-11-23] MEDS: NITAZOXANIDE 500 MG TAB PO SCH ×2 (09:11→20:09)
[2019-11-23] MEDS: FAMOTIDINE/PF 20 MG/2 ML VIAL IV SCH (09:11)
[2019-11-23] MEDS: FOLIC ACID/VITAMIN B COMP W-C 1 CAP TAB PO SCH (09:11)
[2019-11-23] MEDS: ATORVASTATIN CALCIUM 40 MG TABLET PO SCH (09:11)
[2019-11-23] MEDS: ALLOPURINOL 100 MG TABLET PO SCH (09:11)
[2019-11-23] MEDS: METOPROLOL TARTRATE 50 MG TAB PO SCH ×2 (09:11→20:09)
[2019-11-23] MEDS: ACETAMINOPHEN 325 MG TAB PO PRN (09:26)
[2019-11-23 12:00] VITALS: BP 170/84
[2019-11-23] MEDS: CEFTAZIDIME PENTAHYDRATE 1 GM/VIAL IVP SCH (13:04)
[2019-11-23] MEDS: HONEY 1 APPL/ML TUBE TP SCH (13:04)
--- NOTE | 2019-11-23 13:16 | NUR ---
CM NOTE/[facility] PER DAUGHTER, DANNY, UNABLE TO RECALL CURRENT HH BUT WANTS TO CHANGE HH SERVICES TO [facility] WHICH ALREADY PROVIDES PROVIDER SERVICES. CLINICAL PACKET FAXED AND CONFIRMED RECEIVED. [facility] FORMS FILLED FOR WOUND VAC, FAXED AND CONFIRMED RECEIVED. PENDING AUTHORIZATION FOR HH AND WOUND VAC, WILL FOLLOW UP. PRIMARY NURSE, ABEBE REIS, MADE AWARE.
--- NOTE | 2019-11-23 13:48 | NUR ---
CM NOTE/[facility] APPROVED PER [facility], WOUND VAC APPROVED AND TO BE DELIVERED AT HOSPITAL. PRIMARY NURSE, ABEBE REIS, MADE AWARE. IMANI CALLED FOR UPDATE ON PENDING AUTHORIZATION, PER STAFF, ADMISSION [facility] OUT TO LUNCH AND WILL CALL ME BACK. CM TO FOLLOW UP.
[2019-11-23 16:00] VITALS: BP 177/68
--- NOTE | 2019-11-23 17:29 | NUR ---
DRESSING CHANGED TO LEFT FOREARM SUTURE SITE BECAUSE DRESSING APPLIED THIS AM WAS LOOSE AND FALLING OFF; [facility] , KVNG AND KERLIX WRAP; THE INC. LINE REMAINS WELL APPROX. WITH HEAVY BLACK SUTURES IN PLACE, NO DRAINAGE; THE PT HAS ANOTHER HEALED INC.LINE MORE DISTAL TO THE ARM ON LEFT AND PT STATED THAT DR BAER TOLD HER NOT TO PUT A DRESSING ON IT THAT ITS ALREADY DRY AND DOES NOT REQUIRE ONE. PT ERIC. PROC. WELL.
--- NOTE | 2019-11-23 17:34 | NUR ---
WOUND VAC SUPPLIES DELIVERED FOR PT TO USE AT HOME; BOX LEFT IN ROOM; PT IS STILL PENDING APPROVAL FOR HOME HEALTH. NO D/C HOME TODAY.
[2019-11-23 20:00] VITALS: BP 124/42
[2019-11-23] MEDS: TRAMADOL HCL 50 MG TABLET PO PRN (21:23)
[2019-11-24 00:01] VITALS: BP 156/61
[2019-11-24 04:00] VITALS: BP 154/50
[2019-11-24 04:40] LABS: EOSINOPHILS % (AUTO) 5.1 % (0.0-8.0); HEMATOCRIT 37.3 % (36-48); LYMPHOCYTES % (AUTO) 23.3 % (21.0-51.0); MEAN CORPUSCULAR HEMOGLOBIN 29.9 pg (27.0-33.0); MEAN CORPUSCULAR HGB CONC 32.4 g/dL (32.0-36.0); MEAN CORPUSCULAR VOLUME 92.1 fL (79-99); MONOCYTES % (AUTO) 9.8 % (3.0-13.0); NEUTROPHILS % (AUTO) 58.4 % (40.0-77.0); PLATELET COUNT (AUTO) 235 K/uL (130-400); RED BLOOD CELL COUNT(AUTO) 4.05 MIL/uL (4.00-5.50); RED CELL DISTRIBUTION WIDTH 16.3 % (11.0-15.5); WHITE BLOOD COUNT (AUTO) 11.9 K/uL (4.8-10.8)
[2019-11-24 04:50] LABS: CREATININE 3.2 mg/dL (0.5-1.5); POTASSIUM 3.7 mmol/L (3.5-5.1)
--- NOTE | 2019-11-24 06:32 | NUR ---
changed patient's wound dressing on forearm with medihoney and kerlex as well as on her right foot with medihoney and kerlex (has hydroblue dressing).
[2019-11-24] MEDS: INSULIN GLARGINE 100 UNITS/ML 10 ML VIAL SQ SCH (06:35)
[2019-11-24] MEDS: INSULIN LISPRO 100 UNIT/ML 3ML SQ SCH ×3 (06:35→18:13)
[2019-11-24] MEDS: INSULIN HUMULIN R 100 UNIT/ML 3ML SQ SCH ×3 (06:35→16:30)
[2019-11-24 08:00] VITALS: BP 145/61
[2019-11-24] MEDS: FERROUS SULFATE 65 MG PO SCH (09:00)
[2019-11-24] MEDS: Escitalopram Oxalate 5 MG PO SCH (09:00)
[2019-11-24] MEDS: FAMOTIDINE/PF 20 MG/2 ML VIAL IV SCH (09:00)
--- NOTE | 2019-11-24 11:15 | NUR ---
DIALYSIS PT TOLERATED DIALYSIS WELL 2.2 LITERS REMOVED. PT V/S STABLE SITTING AT THE BEDSIDE OF BED. WILL CONTINUE TO MONITOR.
[2019-11-24] MEDS: ALLOPURINOL 100 MG TABLET PO SCH (11:53)
[2019-11-24] MEDS: ATORVASTATIN CALCIUM 40 MG TABLET PO SCH (11:54)
[2019-11-24] MEDS: FOLIC ACID/VITAMIN B COMP W-C 1 CAP TAB PO SCH (11:54)
[2019-11-24] MEDS: METOPROLOL TARTRATE 50 MG TAB PO SCH (11:54)
[2019-11-24] MEDS: HONEY 1 APPL/ML TUBE TP SCH (11:55)
[2019-11-24 12:00] VITALS: BP 114/50
[2019-11-24] MEDS: CEFTAZIDIME PENTAHYDRATE 1 GM/VIAL IVP SCH (12:01)
[2019-11-24] MEDS: NITAZOXANIDE 500 MG TAB PO SCH (12:12)
[2019-11-24] MEDS ORDERED: CLOPIDOGREL BISULFATE 75 MG TAB ONE (12:57)
[2019-11-24] MEDS: CLOPIDOGREL BISULFATE 75 MG TAB PO SCH (12:58)
--- NOTE | 2019-11-24 18:45 | NUR ---
WOUND VAC [facility] WOUND CHANGED OUT TO HER PERSONAL WOUND VAC.
--- NOTE | 2019-11-24 18:45 | NUR ---
D/C PT LEFT VIA WHEELCHAIR IN PVT CAR AAX3. HOME HEALTH WAS CALLED AND INSTRUCTIONS FOR DRESSING CHANGED FAXED. SEC. NOTIFIED TO CALL [facility] WOUND VAC TO CANCEL. D/C INSTRUCTION GIVEN TO PATIENT AND RX SCRIPT GIVEN. V/S STABLE NO COMPLICATIONS.
== END 2019-11-24 18:50 | disposition home health service (06) | DRG 252 ==
LOC: EDH 22:43 → EDHIP 11-16 00:18 → 3CH 11-16 01:16 → 3BH 11-21 22:23
PROVIDERS: ADMIT Internal Medicine; ATTEND Internal Medicine
PROC: 03PY3JZ Removal of Synthetic Substitute from Upper Artery, Percutaneous Approach (ICD-10-PCS; 2019-11-17)
PROC: 30233R1 Transfusion of Nonautologous Platelets into Peripheral Vein, Percutaneous Approach (ICD-10-PCS; 2019-11-17)
PROC: 30233N1 Transfusion of Nonautologous Red Blood Cells into Peripheral Vein, Percutaneous Approach (ICD-10-PCS; 2019-11-17)
PROC: 5A1D70Z Performance of Urinary Filtration, Intermittent, Less than 6 Hours Per Day (ICD-10-PCS; principal; 2019-11-17 15:34)
PROC: 03C83ZZ Extirpation of Matter from Left Brachial Artery, Percutaneous Approach (ICD-10-PCS; 2019-11-17 15:34)
PROC: 03U Upper Arteries, Supplement (ICD-10-PCS; 2019-11-17 15:34)
PROC: 5A1D70Z Performance of Urinary Filtration, Intermittent, Less than 6 Hours Per Day (ICD-10-PCS; 2019-11-20)
PROC: 5A1D70Z Performance of Urinary Filtration, Intermittent, Less than 6 Hours Per Day (ICD-10-PCS; 2019-11-21)
PROC: 5A1D70Z Performance of Urinary Filtration, Intermittent, Less than 6 Hours Per Day (ICD-10-PCS; 2019-11-22)
PROC: 5A1D70Z Performance of Urinary Filtration, Intermittent, Less than 6 Hours Per Day (ICD-10-PCS; 2019-11-24)
DX: T82.868A Thrombosis due to vascular prosthetic devices, implants and grafts, initial encounter (principal); N18.6 End stage renal disease; A41.9 Sepsis, unspecified organism; I12.0 Hypertensive chronic kidney disease with stage 5 chronic kidney disease or end stage renal disease; L03.114 Cellulitis of left upper limb; A04.72 Enterocolitis due to Clostridium difficile, not specified as recurrent; I42.9 Cardiomyopathy, unspecified; L02.414 Cutaneous abscess of left upper limb; Z68.41 Body mass index [BMI] 40.0-44.9, adult; T82.818A Embolism due to vascular prosthetic devices, implants and grafts, initial encounter; T82.838A Hemorrhage due to vascular prosthetic devices, implants and grafts, initial encounter; Y84.1 Kidney dialysis as the cause of abnormal reaction of the patient, or of later complication, without mention of misadventure at the time of the procedure; E11.51 Type 2 diabetes mellitus with diabetic peripheral angiopathy without gangrene; E11.22 Type 2 diabetes mellitus with diabetic chronic kidney disease; E78.5 Hyperlipidemia, unspecified; E66.01 Morbid (severe) obesity due to excess calories; I25.10 Atherosclerotic heart disease of native coronary artery without angina pectoris; B96.5 Pseudomonas (aeruginosa) (mallei) (pseudomallei) as the cause of diseases classified elsewhere; D64.9 Anemia, unspecified; J44.9 Chronic obstructive pulmonary disease, unspecified; M10.9 Gout, unspecified; R53.81 Other malaise; Z88.1 Allergy status to other antibiotic agents; Z99.2 Dependence on renal dialysis; Z79.4 Long term (current) use of insulin; Z95.1 Presence of aortocoronary bypass graft; Y92.89 Other specified places as the place of occurrence of the external cause; Z91.15 Patient's noncompliance with renal dialysis; Z91.19 Patient's noncompliance with other medical treatment and regimen; Z88.8 Allergy status to other drugs, medicaments and biological substances
CPT/HCPCS: 36415; 80048; 80053; 80074; 82270; 82948; 83605; 83630; 83735; 84100; 84145; 85014; 85018; 85025; 85027; 85610; 85730; 86704; 86706; 86850; 86900; 86901; 86922; 87040; 87046; 87070; 87076; 87077; 87186; 87205; 87324; 87340; 87520; 90935; 93990; C1768; G0378; J0690; J0713; J1100; J1644; J1815; J2001; J2175; J2250; J2405; J2704; J2710; J2720; J2795; J3010; J3370; J3490; J7030; P9016; P9034; P9047

== ENCOUNTER 2019-11-29 12:17 | Inpatient (IN) | payer OTHER ==
[~2019-11-29] VITALS: Ht 162.6 cm; Wt 109.8 kg
[2019-11-29] VITALS (31 sets, daily range): BP systolic 102–177; BP diastolic 33–62
[~2019-11-29 12:17] MED LIST changes: +DICY10CA13 PO; -FURO80TA3 PO; -HYDR-3420 PO; -INSU500I SQ; -NIFE-40 PO; -SODI650T PO
[2019-11-29 12:55] LABS: EOSINOPHILS % (AUTO) 1.2 % (0.0-8.0); HEMATOCRIT 32.2 % (36-48); LYMPHOCYTES % (AUTO) 14.8 % (21.0-51.0); MEAN CORPUSCULAR HEMOGLOBIN 30.2 pg (27.0-33.0); MEAN CORPUSCULAR HGB CONC 31.7 g/dL (32.0-36.0); MEAN CORPUSCULAR VOLUME 95.3 fL (79-99); MONOCYTES % (AUTO) 7.9 % (3.0-13.0); NEUTROPHILS % (AUTO) 74.3 % (40.0-77.0); PLATELET COUNT (AUTO) 256 K/uL (130-400); RED BLOOD CELL COUNT(AUTO) 3.38 MIL/uL (4.00-5.50); RED CELL DISTRIBUTION WIDTH 17.2 % (11.0-15.5); WHITE BLOOD COUNT (AUTO) 13.3 K/uL (4.8-10.8)
[2019-11-29 13:10] LABS: ALBUMIN 2.4 g/dL (3.5-5.0); BILIRUBIN,TOTAL 0.5 mg/dL (0.2-1.0); CREATININE 3.5 mg/dL (0.5-1.5); POTASSIUM 4.4 mmol/L (3.5-5.1); TOTAL PROTEIN, SERUM 6.2 g/dL (6.0-8.3)
[2019-11-29] MEDS ORDERED: SUCCINYLCHOLINE CHLORIDE 20 MG/ML 10 ML VIAL ONE (13:45)
[2019-11-29] MEDS ORDERED: CEFAZOLIN SODIUM 1 GM VIAL ONE (13:45)
[2019-11-29] MEDS ORDERED: ONDANSETRON HCL 4 MG/2 ML VIAL ONE (13:45)
[2019-11-29] MEDS ORDERED: LIDOCAINE PF 2% 5ML ABBOJECT ONE (13:46)
[2019-11-29] MEDS ORDERED: PAPAVERINE HCL 30 MG/ML 2ML VIAL ONE (13:46)
[2019-11-29] MEDS ORDERED: PROPOFOL 10 MG/ML 20ML VIAL IV ONE (13:46)
[2019-11-29] MEDS ORDERED: ROCURONIUM 10MG/1ML SYR 10 MG/ML ML ONE (13:46)
[2019-11-29] MEDS ORDERED: MIDAZOLAM HCL 1 MG/ML 2ML VIAL ONE (13:46)
[2019-11-29] MEDS ORDERED: FENTANYL CITRATE PF 50 MCG/1 ML 2ML VIAL ONE ×2 (13:46→15:12)
[2019-11-29] MEDS ORDERED: ALBUMIN (HUMAN) 25% 100 ML IV ONE (13:54)
[2019-11-29] MEDS ORDERED: EPINEPHRINE 1 MG/ML AMPULE ONE (14:02)
[2019-11-29] MEDS ORDERED: SODIUM CHLORIDE 0.9% 1000ML 1,000 ML IV ONE (14:39)
[2019-11-29] MEDS ORDERED: ZOSYN 3.375GM+NS 50ML 50 ML IV ONE (14:39)
[2019-11-29] MEDS ORDERED: GLYCOPYRROLATE 1 MG/5 ML SYRINGE ONE (15:04)
[2019-11-29] MEDS ORDERED: NEOSTIGMINE 5MG/5ML SYR IV ONE (15:05)
[2019-11-29] MEDS ORDERED: ESMOLOL HCL 10 MG/ML 10 ML VIAL ONE (15:16)
[2019-11-29] MEDS ORDERED: TRAMADOL HCL 50 MG TABLET PO PRN (15:45)
[2019-11-29] MEDS ORDERED: HYDRALAZINE HCL 20 MG/ML VIAL IV PRN (17:30)
[2019-11-29] MEDS ORDERED: MEPERIDINE-PF 25 MG/ML SYG ONE (17:34)
[2019-11-29] MEDS: IPRATROPIUM/ALBUTEROL SULFATE 3 ML SOLUTION IH SCH (18:00)
[2019-11-29] MEDS: ONDANSETRON HCL 4 MG/2 ML VIAL IV PRN (18:36)
[2019-11-29] MEDS ORDERED: INSULIN GLARGINE 100 UNITS/ML 10 ML VIAL SQ SCH (21:00)
[2019-11-29] MEDS: METOPROLOL TARTRATE 50 MG TAB PO SCH (21:26)
[2019-11-29] MEDS: TRAMADOL HCL 50 MG TABLET PO PRN (21:27)
[2019-11-29] MEDS: CEFAZOLIN SODIUM 1 GM VIAL IVP SCH (21:29)
[2019-11-29] MEDS: CEFTAZIDIME PENTAHYDRATE 1 GM/VIAL IVP SCH (21:40)
[2019-11-29] MEDS: INSULIN HUMULIN R 100 UNIT/ML 3ML SQ SCH (21:41)
[2019-11-30] MEDS: IPRATROPIUM/ALBUTEROL SULFATE 3 ML SOLUTION IH SCH ×5 (00:53→23:31)
[2019-11-30] MEDS: ACETAMINOPHEN 325 MG TAB PO PRN (02:45)
[2019-11-30] MEDS: TRAMADOL HCL 50 MG TABLET PO PRN ×2 (03:33→20:14)
[2019-11-30 03:47] VITALS: BP 108/49
[2019-11-30 04:04] LABS: HEMATOCRIT 26.7 % (36-48); MEAN CORPUSCULAR HEMOGLOBIN 30.4 pg (27.0-33.0); MEAN CORPUSCULAR VOLUME 101.5 fL (79-99); PLATELET COUNT (AUTO) 246 K/uL (130-400); RED BLOOD CELL COUNT(AUTO) 2.63 MIL/uL (4.00-5.50); RED CELL DISTRIBUTION WIDTH 17.9 % (11.0-15.5); WHITE BLOOD COUNT (AUTO) 14.6 K/uL (4.8-10.8)
[2019-11-30 04:14] LABS: CREATININE 3.7 mg/dL (0.5-1.5); POTASSIUM 4.6 mmol/L (3.5-5.1)
[2019-11-30] MEDS: CEFAZOLIN SODIUM 1 GM VIAL IVP SCH ×2 (05:43→14:00)
[2019-11-30] MEDS: INSULIN HUMULIN R 100 UNIT/ML 3ML SQ SCH ×2 (05:45→08:15)
[2019-11-30] MEDS ORDERED: DiphenhydrAMINE HCL 50 MG/ML VIAL ONE (07:46)
[2019-11-30] MEDS ORDERED: DiphenhydrAMINE HCL 50 MG/ML VIAL IV SCH (07:50)
--- NOTE | 2019-11-30 08:00 | NUR ---
PT COMPLAINING OF SWELLING TO LEFT SIDE OF FACE AND LIP. PLACED ON MONITOR WITH SPO2 MEASUREMENT OF 98% ON 2L NASAL CANNULA. PT IS ALERT AWAKE ABLE TO MOVE ALL EXTREMITIES. DR RAPP GAVE ORDER FOR BENADRYL. WILL CONTINUE TO MONITOR. PT WITH LEFT SIDE FACE DROOP
[2019-11-30] MEDS: ALLOPURINOL 100 MG TABLET PO SCH (08:26)
[2019-11-30] MEDS: Vitamin B Complex/Vit C/Folic Acid PO SCH (08:27)
[2019-11-30] MEDS: FAMOTIDINE 20MG TAB 20 MG TAB PO SCH (08:27)
[2019-11-30] MEDS: METOPROLOL TARTRATE 50 MG TAB PO SCH ×2 (08:27→20:15)
[2019-11-30] MEDS ORDERED: PHARMACY COMMUNICATION MISC SCH (08:30)
[2019-11-30] MEDS: HOME MEDICATION 1 EACH PO SCH ×2 (08:32→21:00)
[2019-11-30 08:59] VITALS: BP 106/46
[2019-11-30] MEDS ORDERED: ATORVASTATIN CALCIUM 40 MG TABLET PO SCH (09:00)
[2019-11-30] MEDS ORDERED: INSULIN GLARGINE 100 UNITS/ML 10 ML VIAL SQ SCH (09:00)
--- NOTE | 2019-11-30 09:00 | NUR ---
Patient had code stroke this AM.Will wait for new referral from MD for PT to evaluate and treat. Addendum: 11/30/19 at 1445 by KOJO NAVARRETE PT PT Amended: Links added.
[2019-11-30] MEDS ORDERED: ASPIRIN 81MG TAB.CHEW ONE (09:15)
--- NOTE | 2019-11-30 09:30 | NUR ---
[facility] NEUROLOGY CONSULTED AND SPOKE TO PT. DR GHOSH WILL REVIEW CT SCAN
--- NOTE | 2019-11-30 09:45 | NUR ---
CODE STROKE CALLED, DUE TO LEFT SIDE FACIAL DROOP AND SWELLING. PT WENT TO CT SCAN, AND BACK. VS STABLE. SWALLOW STUDY PERFORMED PRIOR TO CT SCAN, PT ABLE TO SWALLOW WITHOUT COUGH. ASPIRIN [address] RAPP
--- NOTE | 2019-11-30 09:47 | NUR ---
DR EASTON CONSULTED. SPOKE TO DR ABOUT PT. DR LOCK IN TO SEE PT AND PERFORMED PHYSICAL ASSESSMENT
[2019-11-30 11:00] VITALS: BP 96/65
[2019-11-30] MEDS ORDERED: INSULIN HUMULIN R 100 UNIT/ML 3ML SQ SCH (11:30)
--- NOTE | 2019-11-30 12:45 | NUR ---
DYSPHAGIA EVAL COMPLETED. S/S OF ASPIRATION. RECOMMEND REGULAR SOLIDS, THIN LIQUIDS, AND PILLS WHOLE WITH LIQUIDS. NIPPLE MAKER EDUCATED Pt ON RISKS AND CONSEQUENCES OF ASPIRATION. NIPPLE MAKER COORDINATED WITH NURSE MARTINO. Addendum: 11/30/[address] DAMON Amended: Links added.
--- NOTE | 2019-11-30 14:51 | NUR ---
CM NOTE/IA MEET WITH PATIENT IN ROOM. PER PATIENT, IS SEMI INDEPENDENT WITH ADLS, FAMILY ASSISTS, LIVES WITH SPOUSE, HAS RX FOR WC THAT SHE HASNT PICKED UP, HAS ROLLATOR WALKER, CANE, [facility] FOR [facility] WOUND VAC TO LEFT ARM WOUND, [facility], AND FEELS SAFE TO RETURN HOME. Addendum: 12/01/19 at 1454 by CAYETANO MCDONALD RN CM Amended: Links added.
[2019-11-30] MEDS: PHARMACY COMMUNICATION MISC SCH (15:15)
--- NOTE | 2019-11-30 15:35 | NUR ---
PT HAVING DIALYSIS
[2019-11-30 16:00] VITALS: BP 98/46
[2019-11-30] MEDS: INSULIN GLARGINE 100 UNITS/ML 10 ML VIAL SQ SCH ×3 (18:15→20:16)
[2019-11-30] MEDS: CEFTAZIDIME PENTAHYDRATE 1 GM/VIAL IVP SCH (20:12)
[2019-11-30] MEDS: ATORVASTATIN CALCIUM 40 MG TABLET PO SCH (20:14)
[2019-11-30] MEDS: INSULIN LISPRO 100 UNIT/ML 3ML SQ SCH (20:15)
[2019-11-30 20:27] LABS: HEMATOCRIT 25.1 % (36-48)
[2019-11-30 20:36] VITALS: BP 112/38
[2019-11-30 21:00] LABS: % IRON SATURATION 29.9 % (22-44)
[2019-11-30] MEDS ORDERED: EPOETIN ALFA 10,000 UNIT/ML VIAL SQ SCH ×2 (21:00)
[2019-11-30 23:39] VITALS: BP 116/44
[2019-12-01] MEDS: PHARMACY COMMUNICATION MISC SCH ×2 (00:45→07:15)
[2019-12-01] MEDS: ACETAMINOPHEN 325 MG TAB PO PRN ×2 (00:46→13:51)
[2019-12-01 03:33] VITALS: BP 106/46
[2019-12-01 03:44] LABS: BASOPHILS % (AUTO) 0.6 % (0.0-5.0); EOSINOPHILS % (AUTO) 2.7 % (0.0-8.0); HEMATOCRIT 24.9 % (36-48); LYMPHOCYTES % (AUTO) 12.9 % (21.0-51.0); MEAN CORPUSCULAR HEMOGLOBIN 30.3 pg (27.0-33.0); MEAN CORPUSCULAR HGB CONC 30.5 g/dL (32.0-36.0); MEAN CORPUSCULAR VOLUME 99.2 fL (79-99); MONOCYTES % (AUTO) 8.8 % (3.0-13.0); NEUTROPHILS % (AUTO) 74.5 % (40.0-77.0); PLATELET COUNT (AUTO) 193 K/uL (130-400); RED BLOOD CELL COUNT(AUTO) 2.51 MIL/uL (4.00-5.50); RED CELL DISTRIBUTION WIDTH 17.8 % (11.0-15.5); WHITE BLOOD COUNT (AUTO) 15.8 K/uL (4.8-10.8)
[2019-12-01 03:58] LABS: ALBUMIN 2.4 g/dL (3.5-5.0); BILIRUBIN,TOTAL 0.4 mg/dL (0.2-1.0); CREATININE 3.7 mg/dL (0.5-1.5); MAGNESIUM 1.9 mg/dL (1.80-2.40); PHOSPHORUS 4.1 mg/dL (2.5-4.9); POTASSIUM 3.8 mmol/L (3.5-5.1); TOTAL PROTEIN, SERUM 5.9 g/dL (6.0-8.3)
[2019-12-01] MEDS: IPRATROPIUM/ALBUTEROL SULFATE 3 ML SOLUTION IH SCH ×2 (06:44→11:31)
[2019-12-01] MEDS: INSULIN LISPRO 100 UNIT/ML 3ML SQ SCH ×6 (07:30→22:21)
[2019-12-01 08:09] VITALS: BP 107/41
[2019-12-01] MEDS: METOPROLOL TARTRATE 50 MG TAB PO SCH ×2 (09:00→22:19)
[2019-12-01] MEDS: HOME MEDICATION 1 EACH PO SCH (09:00)
[2019-12-01] MEDS: Vitamin B Complex/Vit C/Folic Acid PO SCH (09:24)
[2019-12-01] MEDS: ASPIRIN 81MG TAB.CHEW PO SCH (09:25)
[2019-12-01] MEDS: ALLOPURINOL 100 MG TABLET PO SCH (09:26)
[2019-12-01] MEDS: FAMOTIDINE 20MG TAB 20 MG TAB PO SCH (09:28)
[2019-12-01 11:06] VITALS: BP 114/42
[2019-12-01 16:00] VITALS: BP 107/51
--- NOTE | 2019-12-01 16:23 | NUR ---
CM NOTE/POSSIBLE CHANGE IN DCP [facility] CALLED, PER URSULA, STATES GREAT FAMILY SUPPORT BUT RECOMMENDS SNF. INFORMED URSULA THAT PATIENT IS AAOX3 AND ABLE TO MAKE DECISIONS, HAD PREVIOUSLY DECLINED SNF IN LAST ADMISSION. MEET WITH PATIENT IN ROOM, DISCUSSED CARE AT HOME AND DCP. PER PATIENT, REFUSING SNF STATING "ITS DANGEROUS D/T MY CONDITION AND COMORBIDITIES, I WANT TO GO HOME WITH HOME HEALTH." [facility] CALLED TO INFORM OF DECLINING OF SNF. PER URSULA, PATIENT NOT ACCEPTED BACK AND WAS DISCHARGED ON 11/29/19 WHEN ADMITTED TO HOSPITAL. PATIENT MADE AWARE OF DISCHARGE FROM [facility]. PATIENT MADE AWARE OF [facility] TESTING PATIENTS FOR COVID BEFORE ADMITTING, SOMETHING TO THINK ABOUT BEFORE MAKING DECISION. PER PATIENT, WILL DISCUSS SNF VS HOME WITH NEW HH AND MAKE DECISION AFTER TALKING WITH FAMILY. CM TO FOLLOW UP. PRIMARY NURSE, GUNNER REIS, MADE AWARE.
[2019-12-01] MEDS ORDERED: PHARMACY COMMUNICATION MISC SCH (18:15)
[2019-12-01 19:56] VITALS: BP 111/52
[2019-12-01] MEDS: CEFTAZIDIME PENTAHYDRATE 1 GM/VIAL IVP SCH (22:18)
[2019-12-01] MEDS: ATORVASTATIN CALCIUM 40 MG TABLET PO SCH (22:18)
[2019-12-01] MEDS: INSULIN GLARGINE 100 UNITS/ML 10 ML VIAL SQ SCH (22:20)
[2019-12-01] MEDS: EPOETIN ALFA 10,000 UNIT/ML VIAL SQ SCH (22:25)
[2019-12-01 23:49] VITALS: BP 131/54
[2019-12-02 03:44] VITALS: BP 120/58
[2019-12-02 04:22] LABS: BASOPHILS % (AUTO) 0.5 % (0.0-5.0); EOSINOPHILS % (AUTO) 3.4 % (0.0-8.0); HEMATOCRIT 24.5 % (36-48); LYMPHOCYTES % (AUTO) 13.8 % (21.0-51.0); MEAN CORPUSCULAR VOLUME 96.8 fL (79-99); MONOCYTES % (AUTO) 8.7 % (3.0-13.0); NEUTROPHILS % (AUTO) 73.1 % (40.0-77.0); PLATELET COUNT (AUTO) 186 K/uL (130-400); RED BLOOD CELL COUNT(AUTO) 2.53 MIL/uL (4.00-5.50); RED CELL DISTRIBUTION WIDTH 17.5 % (11.0-15.5); WHITE BLOOD COUNT (AUTO) 13.7 K/uL (4.8-10.8)
[2019-12-02 05:35] LABS: CREATININE 3.5 mg/dL (0.5-1.5); POTASSIUM 3.7 mmol/L (3.5-5.1)
[2019-12-02] MEDS: INSULIN LISPRO 100 UNIT/ML 3ML SQ SCH ×7 (06:46→21:00)
[2019-12-02 08:00] VITALS: BP 110/45
[2019-12-02] MEDS: ALLOPURINOL 100 MG TABLET PO SCH (08:44)
[2019-12-02] MEDS: ASPIRIN 81MG TAB.CHEW PO SCH (08:44)
[2019-12-02] MEDS: FAMOTIDINE 20MG TAB 20 MG TAB PO SCH (08:44)
[2019-12-02] MEDS: Vitamin B Complex/Vit C/Folic Acid PO SCH (08:44)
[2019-12-02] MEDS: METOPROLOL TARTRATE 50 MG TAB PO SCH ×2 (08:45→21:08)
[2019-12-02] MEDS: ACETAMINOPHEN 325 MG TAB PO PRN (11:53)
[2019-12-02 12:00] VITALS: BP 119/53
[2019-12-02] MEDS: LACTULOSE 20 GM/30 ML UDCUP PO PRN (15:24)
[2019-12-02 16:00] VITALS: BP 133/58
[2019-12-02] MEDS: ONDANSETRON HCL 4 MG/2 ML VIAL IV PRN ×2 (16:12→17:22)
[2019-12-02 19:56] VITALS: BP 131/59
[2019-12-02] MEDS: CEFTAZIDIME PENTAHYDRATE 1 GM/VIAL IVP SCH (21:07)
[2019-12-02] MEDS: ATORVASTATIN CALCIUM 40 MG TABLET PO SCH (21:07)
[2019-12-02] MEDS: INSULIN GLARGINE 100 UNITS/ML 10 ML VIAL SQ SCH (21:11)
[2019-12-02 23:36] VITALS: BP 130/53
[2019-12-03] MEDS: ONDANSETRON HCL 4 MG/2 ML VIAL IV PRN ×2 (03:02→10:19)
[2019-12-03 03:58] VITALS: BP 140/56
[2019-12-03 05:04] LABS: BASOPHILS % (AUTO) 0.7 % (0.0-5.0); EOSINOPHILS % (AUTO) 3.3 % (0.0-8.0); HEMATOCRIT 25.3 % (36-48); LYMPHOCYTES % (AUTO) 13.9 % (21.0-51.0); MEAN CORPUSCULAR VOLUME 96.9 fL (79-99); MONOCYTES % (AUTO) 7.1 % (3.0-13.0); NEUTROPHILS % (AUTO) 74.5 % (40.0-77.0); PLATELET COUNT (AUTO) 249 K/uL (130-400); RED BLOOD CELL COUNT(AUTO) 2.61 MIL/uL (4.00-5.50); RED CELL DISTRIBUTION WIDTH 17.4 % (11.0-15.5); WHITE BLOOD COUNT (AUTO) 13.4 K/uL (4.8-10.8)
[2019-12-03 05:26] LABS: CREATININE 4.8 mg/dL (0.5-1.5); PHOSPHORUS 3.6 mg/dL (2.5-4.9); POTASSIUM 3.4 mmol/L (3.5-5.1)
[2019-12-03] MEDS: INSULIN LISPRO 100 UNIT/ML 3ML SQ SCH ×7 (06:18→21:00)
[2019-12-03 08:00] VITALS: BP 130/62
[2019-12-03] MEDS: METOPROLOL TARTRATE 50 MG TAB PO SCH ×3 (09:00→21:19)
[2019-12-03] MEDS: Vitamin B Complex/Vit C/Folic Acid PO SCH ×2 (09:00→10:09)
[2019-12-03] MEDS: ALLOPURINOL 100 MG TABLET PO SCH ×2 (09:00→10:09)
[2019-12-03] MEDS: FAMOTIDINE 20MG TAB 20 MG TAB PO SCH ×2 (09:00→10:09)
[2019-12-03] MEDS: ASPIRIN 81MG TAB.CHEW PO SCH ×2 (09:00→10:09)
[2019-12-03 12:00] VITALS: BP 148/70
--- NOTE | 2019-12-03 12:14 | NUR ---
PT HAS REFUSED TO TAKE HER AM MEDS AFTER I HAD ALREADY SCANNED THEM; SHE STATED SHE FELT NAUSEATED, I GAVE HER ZOFRAN I CAME BACK AND OFFERED TO GIVE THEM TO HER NOW THAT HER NAUSEA IS GONE AND SHE STILL REFUSES; SHE ALSO IS REFUSING TO TAKE HER 7 UNITS OF SCHEDULED HUMALOG, HER BLOOD SUGAR IS 132 AND SHE ATE 1/2 A SANDWICH; SHE IS COMPLAINING THAT SHE FEELS LIGHT HEADED, HER VS ARE 147/54, HR 74 O2 SAT 97% ON ROOM AIR; SHE STATES SHE STILL WANTS TO WEAR OXYGEN ANYWAY; I HAVE PLACED 02 2L NC ON HER PER HER REQUEST AND SHE IS SATING 100%; WILL CONT TO MONITOR. SHE STATES THAT SHE THINKS ITS THE MEDICINES MAKING HER FEEL BAD AND SHE'S NOT GOING TO TAKE THEM TODAY.
--- NOTE | 2019-12-03 12:50 | NUR ---
I HAVE INFORMED HOSPITALIST HALINA DE LEÓN OF PT'S REFUSAL TO TAKE MEDS AND OF HER C/O NOT FEELING WELL AND WHAT CURRENT VS SIGN; I HAVE ALSO LET HER KNOW THAT PT HAS DECIDED TO GO TO [facility] AND THAT WILL GET SET UP TOMORROW ;
--- NOTE | 2019-12-03 13:27 | NUR ---
DR COBOS HERE TO SEE PATIENT I INFORMED HIM OF PT'S C/O NOT FEELING WELL, REFUSING HER INSULIN AND MEDICATIONS; I INFORMED HIM OF MOST RECENT VS AND LABS AND HE STATED NOT TO COVER K+ OF 3.4 AND TRY TO GET HER TO AT LEAST TAKE HER NEPHROVITE; HE WENT AND TALKED TO HER AND SHE SAID SHE FEELS A LITTLE STRONGER NOW THAT SHE GOT UP AND WALKED WITH PHYSICAL THERAPY; THEY DISCUSSED HER GOING TO [facility]
[2019-12-03 16:00] VITALS: BP 145/65
--- NOTE | 2019-12-03 18:53 | NUR ---
I RECEIVED A CALL FROM LAB IN REGARDS TO AN ORDER FROM 11-29-2019 TO COLLECT PCR STOOL SAMPLE; I COLLECTED A STOOL SAMPLE BUT WHEN FILLING OUT C-DIFF QUALIFICATION FORM IT STATES IF PT HAD LAXATIVE WITHIN THE LAST 48 HOURS NOT TO SEND SAMPLE AND PT DID RECEIVE LACTULOSE YESTERDAY; I SPOKE TO GRACIELA IN LAB AND INFORMED HIM I WAS NOT SENDING THE SAMPLE BECAUSE OF THAT STIPULATION DISQUALIFIED PT AND I CALLED AND SPOKE TO BELINDA DE LEÓN FOR HOSPITALIST AND TOLD HER I WAS NOT SENDING THE SAMPLE DUE TO THIS. PT DID HAVE 2 LOOSE STOOLS TODAY.
[2019-12-03 20:07] VITALS: BP 152/72
[2019-12-03] MEDS: CEFTAZIDIME PENTAHYDRATE 1 GM/VIAL IVP SCH (21:19)
[2019-12-03] MEDS: ATORVASTATIN CALCIUM 40 MG TABLET PO SCH (21:19)
[2019-12-03] MEDS: INSULIN GLARGINE 100 UNITS/ML 10 ML VIAL SQ SCH (21:23)
[2019-12-03 23:37] VITALS: BP 143/63
[2019-12-04] MEDS ORDERED: TIMOLOL TP (02:17)
[2019-12-04] MEDS ORDERED: DORZOLAMIDE TP (02:17)
[2019-12-04] MEDS: ACETAMINOPHEN 325 MG TAB PO PRN (03:38)
[2019-12-04 04:10] VITALS: BP 153/59
[2019-12-04 04:12] LABS: BASOPHILS % (AUTO) 0.7 % (0.0-5.0); EOSINOPHILS % (AUTO) 3.4 % (0.0-8.0); HEMATOCRIT 26.2 % (36-48); LYMPHOCYTES % (AUTO) 18.4 % (21.0-51.0); MEAN CORPUSCULAR HEMOGLOBIN 30.1 pg (27.0-33.0); MEAN CORPUSCULAR HGB CONC 31.3 g/dL (32.0-36.0); MEAN CORPUSCULAR VOLUME 96.3 fL (79-99); MONOCYTES % (AUTO) 7.4 % (3.0-13.0); NEUTROPHILS % (AUTO) 69.6 % (40.0-77.0); PLATELET COUNT (AUTO) 295 K/uL (130-400); RED BLOOD CELL COUNT(AUTO) 2.72 MIL/uL (4.00-5.50); RED CELL DISTRIBUTION WIDTH 17.7 % (11.0-15.5); WHITE BLOOD COUNT (AUTO) 12.2 K/uL (4.8-10.8)
[2019-12-04 04:34] LABS: ALBUMIN 2.3 g/dL (3.5-5.0); ASPARTATE AMINOTRANSFERASE 18 U/L (10-37); BILIRUBIN,TOTAL 0.5 mg/dL (0.2-1.0); CARBON DIOXIDE 27 mmol/L (21-32); CHLORIDE 96 mmol/L (101-111); CREATININE 5.3 mg/dL (0.5-1.5); GLOMERULAR FILTR. RATE CALC 9 mL/min (>60); GLUCOSE,RANDOM 184 mg/dL (70-105); POTASSIUM 3.5 mmol/L (3.5-5.1); SODIUM SERUM 133 mmol/L (136-145); THYROID STIMULATING HORMONE 3.57 uIU/mL (0.36-3.74); TOTAL PROTEIN, SERUM 6.3 g/dL (6.0-8.3); UREA NITROGEN, BLOOD 27 mg/dL (7-18)
[2019-12-04 04:41] LABS: ALANINE AMINOTRANSFERASE < 6 U/L (12-78)
[2019-12-04] MEDS: INSULIN LISPRO 100 UNIT/ML 3ML SQ SCH ×7 (06:48→21:00)
[2019-12-04 07:51] VITALS: BP 160/62
[2019-12-04] MEDS: METOPROLOL TARTRATE 50 MG TAB PO SCH ×2 (09:00→22:01)
[2019-12-04] MEDS: ASPIRIN 81MG TAB.CHEW PO SCH (09:00)
[2019-12-04] MEDS: ALLOPURINOL 100 MG TABLET PO SCH (09:00)
[2019-12-04] MEDS: FAMOTIDINE 20MG TAB 20 MG TAB PO SCH (09:00)
[2019-12-04] MEDS: Vitamin B Complex/Vit C/Folic Acid PO SCH (09:00)
--- NOTE | 2019-12-04 09:30 | NUR ---
HD IN PROGRESS. PT. DENIES ANY C/O AT THIS TIME.
--- NOTE | 2019-12-04 10:05 | NUR ---
FOLLOW UP COMPLETED. CRITICAL CARE TECHNICIAN COORDINATED WITH NURSE. Pt TOLERATING DIET RECOMMENDATIONS WITH NO S/S OF ASPIRATION AT THIS TIME. CONTINUE WITH PLAN OF CARE TOLERATED. Addendum: 12/04/[address]OHITH JOSE Amended: Links added.
--- NOTE | 2019-12-04 11:10 | NUR ---
HD COMPLETED. PT. DENIES ANY C/O.
[2019-12-04 11:30] VITALS: BP 174/70
--- NOTE | 2019-12-04 13:06 | NUR ---
DR. COBOS IN ROOM SPEAKING WITH PT. DR. COBOS MADE AWARE BY THIS NURSE RE:PT. WITH EPISODE OF CONFUSION EARLIER; VERBALIZED UNDERSTANDING, NO NEW ORDERS RECEIVED.
[2019-12-04] MEDS: MINOXIDIL 2.5 MG TAB PO SCH ×2 (15:15→22:01)
[2019-12-04 16:11] VITALS: BP 158/73
--- NOTE | 2019-12-04 16:16 | NUR ---
NOTIFIED DR. MALAVE RE:CONSULT. NO NEW ORDERS RECEIVED.
[2019-12-04 19:00] VITALS: BP 145/67
[2019-12-04] MEDS: EPOETIN ALFA 10,000 UNIT/ML VIAL SQ SCH (21:00)
[2019-12-04] MEDS: INSULIN GLARGINE 100 UNITS/ML 10 ML VIAL SQ SCH (21:35)
[2019-12-04] MEDS: ATORVASTATIN CALCIUM 40 MG TABLET PO SCH (22:01)
[2019-12-04] MEDS: CEFTAZIDIME PENTAHYDRATE 1 GM/VIAL IVP SCH (22:01)
[2019-12-04 23:00] VITALS: BP 143/64
[2019-12-05] MEDS: ACETAMINOPHEN 325 MG TAB PO PRN (02:44)
[2019-12-05 03:00] VITALS: BP 141/54
[2019-12-05 04:23] LABS: HEMATOCRIT 25.9 % (36-48); MEAN CORPUSCULAR HEMOGLOBIN 30.7 pg (27.0-33.0); MEAN CORPUSCULAR VOLUME 95.9 fL (79-99); RED BLOOD CELL COUNT(AUTO) 2.7 MIL/uL (4.00-5.50); RED CELL DISTRIBUTION WIDTH 17.2 % (11.0-15.5); WHITE BLOOD COUNT (AUTO) 13.5 K/uL (4.8-10.8)
[2019-12-05 04:39] LABS: CREATININE 3.7 mg/dL (0.5-1.5); POTASSIUM 3.6 mmol/L (3.5-5.1)
[2019-12-05] MEDS: INSULIN LISPRO 100 UNIT/ML 3ML SQ SCH ×7 (06:24→21:52)
[2019-12-05 08:00] VITALS: BP 133/59
[2019-12-05] MEDS: MINOXIDIL 2.5 MG TAB PO SCH ×2 (08:21→21:31)
[2019-12-05] MEDS: ASPIRIN 81MG TAB.CHEW PO SCH (08:21)
[2019-12-05] MEDS: FAMOTIDINE 20MG TAB 20 MG TAB PO SCH (08:21)
[2019-12-05] MEDS: METOPROLOL TARTRATE 50 MG TAB PO SCH ×2 (08:21→21:31)
[2019-12-05] MEDS: ALLOPURINOL 100 MG TABLET PO SCH (08:21)
[2019-12-05] MEDS: Vitamin B Complex/Vit C/Folic Acid PO SCH (09:00)
--- NOTE | 2019-12-05 09:28 | NUR ---
DR EASTON UPDATED AND RECONSULTED VIA TELEPHONE AT THIS TIME; NO NEW ORDERS OF YET
[2019-12-05] MEDS: ONDANSETRON HCL 4 MG/2 ML VIAL IV PRN (10:02)
[2019-12-05 11:00] VITALS: BP 122/47
--- NOTE | 2019-12-05 13:19 | NUR ---
CM NOTE/DCP CHANGE TO [facility] PER DR. LOCK, NEW ORDER FOR [facility] INSTEAD OF SNF FOR IV ANTIBIOTICS TO BE DECIDED BY ID, WOUND CARE AND WOUND VAC MANAGEMENT AND ANEMIA MONITORING, AND PHYSICAL THERAPY TREATMENTS. MEET WITH PATIENT IN ROOM, DISCUSSED CHANGE IN PLAN. PER PATIENT, OK WITH CHANGE IN PLAN BUT WANTS ME TO RELAY INFO TO DAUGHTER. SHREYA CALLED, INFO ON FACESHEET, AND DISCUSSED CHANGE IN DCP. DANIEL FILLED, CLINICAL PACKET, INQUIRY AND PRE SCREEN EMAILED AND FAXED TO [facility] CONFIRMED RECEIVED. PENDING AUTHORIZATION, EMS SET UP, PENDING DC DATE AND FLAGGED IN CHART.
[2019-12-05 16:00] VITALS: BP 111/50
--- NOTE | 2019-12-05 18:00 | NUR ---
UPDATE PATIENT'S FAMILY HAS BEEN UPDATED SEVERAL TIMES THROUGHOUT THE DAY; PATIENT REMAINS FORGETFUL AND UNCOOPERATIVE. PATIENT REFUSED MRI AND MRA OF BRAIN ORDERED BY DR EASTON; DR EASTON AWARE; PATIENT HAS ALSO BEEN REFUSING HER INSULIN; PATIENT STATED SHE SPILLED A HOT SOUP ON HER ABDOMEN DURING LUNCHTIME, AT WHICH TIME SHE WAS CLEANED UP, CHANGED, AND REPOSITIONED. ABDOMEN AND UPPER LEGS REMAIN WITHOUT SIGNS OF ANY HOPPER AND NO REDNESS OR WELTING NOTED; PATIENT CONTINUES TO YELL OUT FOR HELP FOR SMALL THINGS SUCH REPOSITIONING; INSTRUCTED SEVERAL TIMES ON HOW TO USE CALL LIGHT AND STILL PATIENT CONTINUES TO YELL OUT FOR HELP WHEN SHE WANTS SOMETHING. PHYSICAL THERAPY WORKED WITH HER TODAY A COUPLE OF TIMES AND WERE ABLE TO MOVE HER FROM BED TO CHAIR AND BACK TO BED WITH MODERATE EFFORT. PATIENT'S DAUGHTER, TYLER, STATES SHE WILL TALK TO HER MOTHER THIS EVENING TO TRY AND GET HER TO CONSENT FOR MRI TO BE DONE. PATIENT PENDING [facility] EVAL FOR TRANSFER TO THEIR FACILITY SOON ACCEPTED. DR LOCK, DR EASTON, AND DR RAPP AWARE OF PATIENT PENDING APPROVAL FOR [facility] TO BE DISCHARGED AND AGREE WITH PLAN.
--- NOTE | 2019-12-05 19:00 | NUR ---
PACKER SAUSAGE AND WIENER REPORT GIVEN TO SMILEY DAVIS AT THIS TIME; PATIENT RESTING IN BED WITH NO COMPLAINTS AT THIS TIME
[2019-12-05 19:57] VITALS: BP 140/57
[2019-12-05] MEDS: ATORVASTATIN CALCIUM 40 MG TABLET PO SCH (21:31)
[2019-12-05] MEDS: CEFTAZIDIME PENTAHYDRATE 1 GM/VIAL IVP SCH (21:36)
[2019-12-05] MEDS: INSULIN GLARGINE 100 UNITS/ML 10 ML VIAL SQ SCH (21:51)
[2019-12-05 23:12] VITALS: BP 115/43
[2019-12-06] VITALS (7 sets, daily range): BP systolic 93–146; BP diastolic 40–68
[2019-12-06] MEDS: LACTULOSE 20 GM/30 ML UDCUP PO PRN (06:48)
[2019-12-06] MEDS: INSULIN LISPRO 100 UNIT/ML 3ML SQ SCH ×7 (06:49→21:00)
[2019-12-06] MEDS ORDERED: TRAM50TA4 PO (08:46)
[2019-12-06] MEDS: ASPIRIN 81MG TAB.CHEW PO SCH (08:51)
[2019-12-06] MEDS: ALLOPURINOL 100 MG TABLET PO SCH (08:51)
[2019-12-06] MEDS: FAMOTIDINE 20MG TAB 20 MG TAB PO SCH (08:51)
[2019-12-06] MEDS: MINOXIDIL 2.5 MG TAB PO SCH ×2 (08:51→20:28)
[2019-12-06] MEDS: Vitamin B Complex/Vit C/Folic Acid PO SCH (08:52)
[2019-12-06] MEDS: METOPROLOL TARTRATE 50 MG TAB PO SCH ×2 (09:00→20:28)
[2019-12-06] MEDS ORDERED: HEPARIN SODIUM 5000UNIT/ML 1ML VIAL ONE (11:54)
[2019-12-06] MEDS ORDERED: ACETAMINOPHEN 325 MG TAB PO PRN (12:00)
[2019-12-06] MEDS ORDERED: 0.9% SODIUM CHLORIDE 1000 ML IV BAG IV PRN (12:00)
[2019-12-06] MEDS ORDERED: NITROGLYCERIN 0.4 MG SL TAB SL PRN (12:00)
[2019-12-06] MEDS ORDERED: HEPARIN SODIUM 5000UNIT/ML 1ML VIAL IJ PRN ×2 (12:00)
[2019-12-06] MEDS ORDERED: SODIUM CHLORIDE 0.9% 1000ML 1,000 ML IV PRN (12:00)
--- NOTE | 2019-12-06 12:00 | NUR ---
TOLERATE DIALYSIS TREATMENT . WELL / REMOVAL 2 LITER
--- NOTE | 2019-12-06 15:55 | NUR ---
RDSCREEN - LOS X 7 Pt admitted for AV Graft Hemorrhage. Pt with Renal Dialysis diet order in place. Fair PO intake at 50%. Pt with Diarrhea as per EMR. Pt with Obesity Class III (BMI 41.8). Pt pending discharge to SNF. Recommend to add Nepro QD with Breakfast meal RD to continue to monitor. Please notify as additional nutrition concerns arise. Thank you. Addendum: 12/06/19 at [address] Amended: Links added.
--- NOTE | 2019-12-06 16:57 | NUR ---
FERNANDO JENSEN/[facility] PENDING AUTHORIZATION PER [facility] CM TO FOLLOW UP.
--- NOTE | 2019-12-06 17:30 | NUR ---
WOUND VAC TO HER RT MID AREA OF LT ARM .CHANGED . CLEANSE . WITH THE SALINE. AND APPLICATION . OF THE BLACK SPONGE ,AND CLEAR DRSG AND CERDA;CTION SETUP 125MMHG . NOTED NO LEAKAGE. TOLERATE WELL. CALL LIGHT INREACH.
[2019-12-06] MEDS: CEFTAZIDIME PENTAHYDRATE 1 GM/VIAL IVP SCH (20:27)
[2019-12-06] MEDS: ATORVASTATIN CALCIUM 40 MG TABLET PO SCH (20:27)
[2019-12-06] MEDS: EPOETIN ALFA 10,000 UNIT/ML VIAL SQ SCH (20:30)
[2019-12-06] MEDS: INSULIN GLARGINE 100 UNITS/ML 10 ML VIAL SQ SCH (21:47)
[2019-12-06] MEDS: ACETAMINOPHEN 325 MG TAB PO PRN (22:39)
[2019-12-07] MEDS: TRAMADOL HCL 50 MG TABLET PO PRN (01:01)
[2019-12-07 04:37] VITALS: BP 123/53
[2019-12-07 06:07] LABS: HEMATOCRIT 29.4 % (36-48); PLATELET COUNT (AUTO) 277 K/uL (130-400); RED BLOOD CELL COUNT(AUTO) 3.03 MIL/uL (4.00-5.50); RED CELL DISTRIBUTION WIDTH 17.4 % (11.0-15.5); WHITE BLOOD COUNT (AUTO) 7.4 K/uL (4.8-10.8)
[2019-12-07 06:16] LABS: CARBON DIOXIDE 29 mmol/L (21-32); CHLORIDE 98 mmol/L (101-111); CREATININE 3.9 mg/dL (0.5-1.5); GLOMERULAR FILTR. RATE CALC 12 mL/min (>60); GLUCOSE,RANDOM 145 mg/dL (70-105); POTASSIUM 3.3 mmol/L (3.5-5.1); SODIUM SERUM 136 mmol/L (136-145); UREA NITROGEN, BLOOD 14 mg/dL (7-18)
[2019-12-07] MEDS: INSULIN LISPRO 100 UNIT/ML 3ML SQ SCH ×7 (06:18→21:00)
[2019-12-07 06:20] LABS: ALBUMIN 2.3 g/dL (3.5-5.0); ASPARTATE AMINOTRANSFERASE 23 U/L (10-37); BILIRUBIN,DIRECT 0.2 mg/dL (0.0-0.3); BILIRUBIN,TOTAL 0.6 mg/dL (0.2-1.0); PHOSPHORUS 3.7 mg/dL (2.5-4.9)
[2019-12-07 06:21] LABS: ALANINE AMINOTRANSFERASE < 6 U/L (12-78)
[2019-12-07 07:30] VITALS: BP 142/60
--- NOTE | 2019-12-07 08:00 | NUR ---
AM ROUNDS.WOUND VAC IN PLACE TO WOUND LT. FOREARM. GOOD SEAL AT125.C/O OF FEELING NAUSEA.
[2019-12-07] MEDS: Vitamin B Complex/Vit C/Folic Acid PO SCH (09:00)
[2019-12-07] MEDS: FAMOTIDINE 20MG TAB 20 MG TAB PO SCH (09:12)
[2019-12-07] MEDS: ONDANSETRON HCL 4 MG/2 ML VIAL IV PRN ×2 (09:12→17:12)
[2019-12-07] MEDS: METOPROLOL TARTRATE 50 MG TAB PO SCH ×2 (09:13→21:14)
[2019-12-07] MEDS: MINOXIDIL 2.5 MG TAB PO SCH ×2 (09:13→21:00)
[2019-12-07] MEDS: ASPIRIN 81MG TAB.CHEW PO SCH (09:14)
[2019-12-07] MEDS: ALLOPURINOL 100 MG TABLET PO SCH (09:14)
--- NOTE | 2019-12-07 10:30 | NUR ---
CM NOTE/P2P WITH DR. LOCK PEER TO PEER INFORMATION GIVEN TO DR. LOCK FOLLOWS: REFERENCE #: [id number] PHONE # TO CALL: [employer] ID: [id number] : [address] LOCK, WILL CALL FOR PEER TO PEER. CURRENTLY STILL PENDING AUTHORIZATION FOR LT[facility].
--- NOTE | 2019-12-07 10:48 | NUR ---
NEW IV START, 22G RT. WRIST.
[2019-12-07 11:00] VITALS: BP 109/43
--- NOTE | 2019-12-07 14:00 | NUR ---
PENDING TRANSFER TO [facility], SPOKE TO CM AND AM BEING TOLD HAS NOT BEEN APPROVED BY INSURANCE YET
[2019-12-07 16:00] VITALS: BP 97/44
[2019-12-07 19:00] VITALS: BP 133/57
[2019-12-07] MEDS: INSULIN GLARGINE 100 UNITS/ML 10 ML VIAL SQ SCH (21:00)
[2019-12-07] MEDS: CEFTAZIDIME PENTAHYDRATE 1 GM/VIAL IVP SCH (21:13)
[2019-12-07] MEDS: ATORVASTATIN CALCIUM 40 MG TABLET PO SCH (21:14)
[2019-12-08] VITALS (7 sets, daily range): BP systolic 109–136; BP diastolic 47–54
[2019-12-08] MEDS: INSULIN LISPRO 100 UNIT/ML 3ML SQ SCH ×6 (06:08→21:24)
[2019-12-08] MEDS: ALLOPURINOL 100 MG TABLET PO SCH (09:00)
[2019-12-08] MEDS: ASPIRIN 81MG TAB.CHEW PO SCH (09:00)
[2019-12-08] MEDS: FAMOTIDINE 20MG TAB 20 MG TAB PO SCH (09:00)
[2019-12-08] MEDS: Vitamin B Complex/Vit C/Folic Acid PO SCH (09:00)
[2019-12-08] MEDS: MINOXIDIL 2.5 MG TAB PO SCH ×2 (09:00→21:19)
[2019-12-08] MEDS: METOPROLOL TARTRATE 50 MG TAB PO SCH ×2 (09:00→21:19)
--- NOTE | 2019-12-08 15:00 | NUR ---
cm note called and spoke to rafaela gaspar from [facility], states that dr Day did peer to peer, but [facility] insurance did not approve for [facility]. states she spoke to dr day and asked if expedited appeal process is to be started, per md states to proceed with snf referral.
[2019-12-08] MEDS: CEFTAZIDIME PENTAHYDRATE 1 GM/VIAL IVP SCH (21:19)
[2019-12-08] MEDS: EPOETIN ALFA 10,000 UNIT/ML VIAL SQ SCH (21:19)
[2019-12-08] MEDS: ATORVASTATIN CALCIUM 40 MG TABLET PO SCH (21:19)
[2019-12-08] MEDS: INSULIN GLARGINE 100 UNITS/ML 10 ML VIAL SQ SCH (21:23)
[2019-12-09] MEDS: TRAMADOL HCL 50 MG TABLET PO PRN (00:49)
[2019-12-09 04:02] VITALS: BP 127/50
[2019-12-09] MEDS: INSULIN LISPRO 100 UNIT/ML 3ML SQ SCH ×7 (06:26→21:00)
[2019-12-09] MEDS: LACTULOSE 20 GM/30 ML UDCUP PO PRN (06:40)
[2019-12-09 07:00] VITALS: BP 135/61
[2019-12-09 11:00] VITALS: BP 131/50
--- NOTE | 2019-12-09 13:00 | NUR ---
cm note spoke to pt and updated on denial by insurance for [facility] even after peer to peer by md,, and that md ordered snf level of care, pt states agreeable to [facility], as 1st choice, and agreeable as second choice to [facility], since she does live in [place].choice letter obtained.informed her everything needs to be verified, due to transportation may be an issue for the snf. states she attends [facility] in [place] as long as in network. offered to call her family if she wishes for me to explain, and states she no need for that, that she will update her family.
[2019-12-09 15:00] VITALS: BP 139/59
[2019-12-09] MEDS: ALLOPURINOL 100 MG TABLET PO SCH (17:41)
[2019-12-09] MEDS: Vitamin B Complex/Vit C/Folic Acid PO SCH (17:41)
[2019-12-09] MEDS: METOPROLOL TARTRATE 50 MG TAB PO SCH ×2 (17:41→19:47)
[2019-12-09] MEDS: ASPIRIN 81MG TAB.CHEW PO SCH (17:41)
[2019-12-09] MEDS: MINOXIDIL 2.5 MG TAB PO SCH ×2 (17:41→19:47)
[2019-12-09] MEDS: FAMOTIDINE 20MG TAB 20 MG TAB PO SCH (17:41)
[2019-12-09 19:17] VITALS: BP 105/45
[2019-12-09] MEDS: ATORVASTATIN CALCIUM 40 MG TABLET PO SCH (20:04)
[2019-12-09] MEDS: INSULIN GLARGINE 100 UNITS/ML 10 ML VIAL SQ SCH (21:00)
[2019-12-09 23:08] VITALS: BP 108/59
[2019-12-10 03:39] VITALS: BP 121/38
[2019-12-10] MEDS: INSULIN LISPRO 100 UNIT/ML 3ML SQ SCH ×7 (05:28→21:00)
[2019-12-10 05:41] LABS: HEMATOCRIT 31.6 % (36-48); MEAN CORPUSCULAR HEMOGLOBIN 30.1 pg (27.0-33.0); MEAN CORPUSCULAR HGB CONC 30.4 g/dL (32.0-36.0); MEAN CORPUSCULAR VOLUME 99.1 fL (79-99); PLATELET COUNT (AUTO) 286 K/uL (130-400); RED BLOOD CELL COUNT(AUTO) 3.19 MIL/uL (4.00-5.50); RED CELL DISTRIBUTION WIDTH 16.8 % (11.0-15.5); WHITE BLOOD COUNT (AUTO) 8.7 K/uL (4.8-10.8)
[2019-12-10 05:47] LABS: CREATININE 4.8 mg/dL (0.5-1.5); POTASSIUM 3.8 mmol/L (3.5-5.1)
[2019-12-10 05:49] LABS: BAND NEUTROPHILS % (MANUAL) 6 % (0-2); BASOPHILS % (MANUAL) 6 % (0-2); EOSINOPHILS % (MANUAL) 2 % (1-6); LYMPHOCYTES % (MANUAL) 28 % (22-44); MAN.DIFF COMMENT-IMPRESSION MANUAL DIFFERENTIAL; MONOCYTES % (MANUAL) 4 % (2-9); PLATELET MORPHOLOGY COMMENT ADEQUATE; SEGMENTED NEUTROPHILS % 54 % (40-70)
[2019-12-10 07:00] VITALS: BP 123/52
[2019-12-10] MEDS: FAMOTIDINE 20MG TAB 20 MG TAB PO SCH (09:00)
[2019-12-10] MEDS: ASPIRIN 81MG TAB.CHEW PO SCH (09:00)
[2019-12-10] MEDS: Vitamin B Complex/Vit C/Folic Acid PO SCH (09:00)
[2019-12-10] MEDS: MINOXIDIL 2.5 MG TAB PO SCH ×2 (09:00→20:19)
[2019-12-10] MEDS: METOPROLOL TARTRATE 50 MG TAB PO SCH ×2 (09:00→20:19)
[2019-12-10] MEDS: ALLOPURINOL 100 MG TABLET PO SCH (09:00)
[2019-12-10 11:00] VITALS: BP 117/45
[2019-12-10 16:00] VITALS: BP 137/59
[2019-12-10 19:07] VITALS: BP 115/47
--- NOTE | 2019-12-10 19:47 | NUR ---
KEVIN F/U FERNANDO spoke to Karen with [facility]. States she will need to submit referral to insurance for auth. FERNANDO faxed referral with updates.
[2019-12-10] MEDS: ATORVASTATIN CALCIUM 40 MG TABLET PO SCH (20:21)
[2019-12-10] MEDS: INSULIN GLARGINE 100 UNITS/ML 10 ML VIAL SQ SCH (21:00)
[2019-12-10 23:32] VITALS: BP 146/60
[2019-12-11 03:20] VITALS: BP 133/49
[2019-12-11] MEDS: ACETAMINOPHEN 325 MG TAB PO PRN (03:25)
[2019-12-11] MEDS: INSULIN LISPRO 100 UNIT/ML 3ML SQ SCH ×7 (06:37→20:57)
[2019-12-11 08:00] VITALS: BP 153/67
[2019-12-11] MEDS: ALLOPURINOL 100 MG TABLET PO SCH (09:19)
[2019-12-11] MEDS: ASPIRIN 81MG TAB.CHEW PO SCH (09:19)
[2019-12-11] MEDS: Vitamin B Complex/Vit C/Folic Acid PO SCH (09:19)
[2019-12-11] MEDS: FAMOTIDINE 20MG TAB 20 MG TAB PO SCH (09:19)
[2019-12-11] MEDS: MINOXIDIL 2.5 MG TAB PO SCH ×2 (09:19→21:00)
[2019-12-11] MEDS: METOPROLOL TARTRATE 50 MG TAB PO SCH ×2 (09:19→21:00)
[2019-12-11 11:46] VITALS: BP 115/55
--- NOTE | 2019-12-11 14:12 | NUR ---
FERNANDO Note: [employer] pending approval CM spoke to Karen currently here to obtain covid swab for pt. Received updated clinicals. Pt pending approval and acceptance, aware there is dc ordered today once approved. EMS arranged and faxed for today, primary nurse to call [facility] once pt ready to DC. Primary nurse aware. CM to cont to follow up.
[2019-12-11 15:47] VITALS: BP 119/46
[2019-12-11 20:08] VITALS: BP 110/43
[2019-12-11] MEDS: INSULIN GLARGINE 100 UNITS/ML 10 ML VIAL SQ SCH (21:00)
[2019-12-11] MEDS: ATORVASTATIN CALCIUM 40 MG TABLET PO SCH (22:27)
[2019-12-11] MEDS: TRAMADOL HCL 50 MG TABLET PO PRN (22:28)
[2019-12-11] MEDS: EPOETIN ALFA 10,000 UNIT/ML VIAL SQ SCH (22:29)
--- NOTE | 2019-12-11 23:00 | NUR ---
PT C/O PAIN TO RIGHT LEG INCISION SITE. HAS BEEN NOTED TO BE DISCOLORED AND SWOLLEN SINCE PROCEDURE DATE 11/28. PT GIVEN PAIN MEDICATION AND ICE PACK APPLIED.
[2019-12-12 00:08] VITALS: BP 109/35
--- NOTE | 2019-12-12 04:00 | NUR ---
WOUND VAC CHANGED AT THIS TIME BY MARLEN REIS. NO DISTRESS NOTED. PT IS NOTED TO HAVE NO DRAINAGE TO SITE. WILL REMIND SURGEON ABOUT WOUND VAC IN PLACE WITH NO OUTPUT.
[2019-12-12 04:08] VITALS: BP 135/45
[2019-12-12] MEDS: INSULIN LISPRO 100 UNIT/ML 3ML SQ SCH ×7 (06:05→21:00)
[2019-12-12 07:52] VITALS: BP 125/48
[2019-12-12] MEDS: ASPIRIN 81MG TAB.CHEW PO SCH (08:50)
[2019-12-12] MEDS: MINOXIDIL 2.5 MG TAB PO SCH ×2 (08:50→21:17)
[2019-12-12] MEDS: METOPROLOL TARTRATE 50 MG TAB PO SCH ×2 (08:51→21:17)
[2019-12-12] MEDS: ALLOPURINOL 100 MG TABLET PO SCH (08:51)
[2019-12-12] MEDS: Vitamin B Complex/Vit C/Folic Acid PO SCH (08:51)
[2019-12-12] MEDS: FAMOTIDINE 20MG TAB 20 MG TAB PO SCH (08:51)
[2019-12-12] MEDS: ONDANSETRON HCL 4 MG/2 ML VIAL IV PRN (09:59)
[2019-12-12 11:34] VITALS: BP 101/42
[2019-12-12 15:36] VITALS: BP 139/58
[2019-12-12 19:40] VITALS: BP 142/53
[2019-12-12] MEDS: INSULIN GLARGINE 100 UNITS/ML 10 ML VIAL SQ SCH (21:00)
[2019-12-12] MEDS: ATORVASTATIN CALCIUM 40 MG TABLET PO SCH (21:17)
[2019-12-13] VITALS: BP 134/57
[2019-12-13 04:00] VITALS: BP 124/50
[2019-12-13 05:03] LABS: BASOPHILS % (AUTO) 0.7 % (0.0-5.0); EOSINOPHILS % (AUTO) 5.2 % (0.0-8.0); HEMATOCRIT 33.9 % (36-48); LYMPHOCYTES % (AUTO) 27.6 % (21.0-51.0); MEAN CORPUSCULAR HEMOGLOBIN 29.5 pg (27.0-33.0); MEAN CORPUSCULAR HGB CONC 30.4 g/dL (32.0-36.0); MEAN CORPUSCULAR VOLUME 97.1 fL (79-99); MONOCYTES % (AUTO) 8.9 % (3.0-13.0); NEUTROPHILS % (AUTO) 57.2 % (40.0-77.0); PLATELET COUNT (AUTO) 318 K/uL (130-400); RED BLOOD CELL COUNT(AUTO) 3.49 MIL/uL (4.00-5.50); RED CELL DISTRIBUTION WIDTH 16.3 % (11.0-15.5); WHITE BLOOD COUNT (AUTO) 9.2 K/uL (4.8-10.8)
[2019-12-13 05:19] LABS: CREATININE 5.5 mg/dL (0.5-1.5)
[2019-12-13] MEDS: INSULIN LISPRO 100 UNIT/ML 3ML SQ SCH ×6 (06:00→17:00)
[2019-12-13 07:30] VITALS: BP 102/56
[2019-12-13] MEDS: ASPIRIN 81MG TAB.CHEW PO SCH (09:00)
[2019-12-13] MEDS: FAMOTIDINE 20MG TAB 20 MG TAB PO SCH (09:00)
[2019-12-13] MEDS: MINOXIDIL 2.5 MG TAB PO SCH (09:00)
[2019-12-13] MEDS: ALLOPURINOL 100 MG TABLET PO SCH (09:00)
[2019-12-13] MEDS: METOPROLOL TARTRATE 50 MG TAB PO SCH (09:00)
[2019-12-13] MEDS: Vitamin B Complex/Vit C/Folic Acid PO SCH (09:00)
--- NOTE | 2019-12-13 10:35 | NUR ---
CM Note: [employer] pending approval CM spoke to Karen, still pending ins auth at this time and covid result. Primary nurse aware. CM to cont to follow up.
[2019-12-13 11:00] VITALS: BP 140/63
--- NOTE | 2019-12-13 12:11 | NUR ---
[id number] patient signed IM Letter, I faxed IM Letter to [phone] and placed in chart under consent tab.
[2019-12-13 16:00] VITALS: BP 130/61
--- NOTE | 2019-12-13 16:11 | NUR ---
CM Note: [facility] approval CM spoke to Karen leal/[facility], pt has approval. EMS arranged and faxed for today, primary nurse to call [facility] once pt ready to DC. Primary nurse aware. CM to cont to follow up.
--- NOTE | 2019-12-13 19:15 | NUR ---
DISCHARGE INSTRUCTIONS GIVEN, PIV REMOVED AND INTACT, WET TO DRY DRESSING TO LEFT ARM, REPORT CALLED TO BIBI, SPOKE TO EVARISTO ASHRAF, PT DISCHARGED VIA EMS
[2019-12-14 12:11] LABS: HEPATITIS A ANTIBODY IGM Negative (Negative); HEPATITIS B CORE IGM Negative (Negative); HEPATITIS Bs ANTIGEN SCREEN P Negative (Negative)
== END 2019-12-13 19:00 | DRG 252 ==
LOC: EDH 12:17 → EDHIP 13:59 → 4DH 20:52
PROVIDERS: ADMIT Internal Medicine; ATTEND Internal Medicine
PROC: 03L80ZZ Occlusion of Left Brachial Artery, Open Approach (ICD-10-PCS; principal; 2019-11-29 14:05)
PROC: 0318094 Bypass Left Brachial Artery to Left Lower Arm Artery with Autologous Venous Tissue, Open Approach (ICD-10-PCS; 2019-11-29 14:05)
PROC: 06BQ4ZZ Excision of Left Saphenous Vein, Percutaneous Endoscopic Approach (ICD-10-PCS; 2019-11-29 14:05)
PROC: 03P Upper Arteries, Removal (ICD-10-PCS; 2019-11-29 14:05)
PROC: 5A1D70Z Performance of Urinary Filtration, Intermittent, Less than 6 Hours Per Day (ICD-10-PCS; 2019-11-30)
PROC: 5A1D70Z Performance of Urinary Filtration, Intermittent, Less than 6 Hours Per Day (ICD-10-PCS; 2019-12-01)
PROC: 5A1D70Z Performance of Urinary Filtration, Intermittent, Less than 6 Hours Per Day (ICD-10-PCS; 2019-12-04)
PROC: 5A1D70Z Performance of Urinary Filtration, Intermittent, Less than 6 Hours Per Day (ICD-10-PCS; 2019-12-06)
PROC: 5A1D70Z Performance of Urinary Filtration, Intermittent, Less than 6 Hours Per Day (ICD-10-PCS; 2019-12-08)
PROC: 5A1D70Z Performance of Urinary Filtration, Intermittent, Less than 6 Hours Per Day (ICD-10-PCS; 2019-12-11)
PROC: 5A1D70Z Performance of Urinary Filtration, Intermittent, Less than 6 Hours Per Day (ICD-10-PCS; 2019-12-13)
DX: T82.838A Hemorrhage due to vascular prosthetic devices, implants and grafts, initial encounter (principal); N18.6 End stage renal disease; D62 Acute posthemorrhagic anemia; I12.0 Hypertensive chronic kidney disease with stage 5 chronic kidney disease or end stage renal disease; L02.414 Cutaneous abscess of left upper limb; L03.114 Cellulitis of left upper limb; Z68.41 Body mass index [BMI] 40.0-44.9, adult; R58 Hemorrhage, not elsewhere classified; B96.5 Pseudomonas (aeruginosa) (mallei) (pseudomallei) as the cause of diseases classified elsewhere; E11.22 Type 2 diabetes mellitus with diabetic chronic kidney disease; E11.40 Type 2 diabetes mellitus with diabetic neuropathy, unspecified; E11.51 Type 2 diabetes mellitus with diabetic peripheral angiopathy without gangrene; E11.621 Type 2 diabetes mellitus with foot ulcer; E11.622 Type 2 diabetes mellitus with other skin ulcer; E66.01 Morbid (severe) obesity due to excess calories; E78.00 Pure hypercholesterolemia, unspecified; E78.5 Hyperlipidemia, unspecified; I07.1 Rheumatic tricuspid insufficiency; I25.10 Atherosclerotic heart disease of native coronary artery without angina pectoris; I65.23 Occlusion and stenosis of bilateral carotid arteries; L97.519 Non-pressure chronic ulcer of other part of right foot with unspecified severity; R29.810 Facial weakness; T36.1X5A Adverse effect of cephalosporins and other beta-lactam antibiotics, initial encounter; Y83.2 Surgical operation with anastomosis, bypass or graft as the cause of abnormal reaction of the patient, or of later complication, without mention of misadventure at the time of the procedure; Z53.20 Procedure and treatment not carried out because of patient's decision for unspecified reasons; Z79.02 Long term (current) use of antithrombotics/antiplatelets; Z79.82 Long term (current) use of aspirin; Z79.899 Other long term (current) drug therapy; Z95.1 Presence of aortocoronary bypass graft; Z99.2 Dependence on renal dialysis; Y92.89 Other specified places as the place of occurrence of the external cause; Z83.3 Family history of diabetes mellitus; Z84.1 Family history of disorders of kidney and ureter; Z82.0 Family history of epilepsy and other diseases of the nervous system; Z82.49 Family history of ischemic heart disease and other diseases of the circulatory system
CPT/HCPCS: 36415; 70450; 71045; 80048; 80053; 80074; 80076; 82010; 82140; 82728; 82948; 83540; 83550; 83735; 84100; 84145; 84443; 84484; 85014; 85018; 85025; 85027; 86850; 86900; 86901; 86922; 87486; 87581; 87633; 87798; 88300; 90935; 92610; 93005; 93306; 93356; 93880; 94640; 94664; 97039; C1757; G0378; J0171; J0330; J0690; J0713; J0885; J1200; J1644; J1815; J2001; J2175; J2250; J2405; J2440; J2543; J2704; J2710; J3010; J3490; J7030; P9047

== ENCOUNTER 2020-05-06 06:58 | Day surgery (SDC) | payer OTHER ==
[2020-05-02 13:56] LABS: BASOPHILS % (AUTO) 0.7 % (0.0-5.0); EOSINOPHILS % (AUTO) 2.3 % (0.0-8.0); HEMATOCRIT 45.3 % (36-48); LYMPHOCYTES % (AUTO) 23.6 % (21.0-51.0); MEAN CORPUSCULAR HEMOGLOBIN 29.9 pg (27.0-33.0); MEAN CORPUSCULAR HGB CONC 31.8 g/dL (32.0-36.0); MONOCYTES % (AUTO) 7.5 % (3.0-13.0); NEUTROPHILS % (AUTO) 65.5 % (40.0-77.0); PLATELET COUNT (AUTO) 225 K/uL (130-400); RED BLOOD CELL COUNT(AUTO) 4.82 MIL/uL (4.00-5.50); RED CELL DISTRIBUTION WIDTH 14.5 % (11.0-15.5); WHITE BLOOD COUNT (AUTO) 11.5 K/uL (4.8-10.8)
[2020-05-02 14:09] LABS: ALBUMIN 3.5 g/dL (3.5-5.0); BILIRUBIN,TOTAL 0.5 mg/dL (0.2-1.0); CREATININE 6.1 mg/dL (0.5-1.5); POTASSIUM 4.7 mmol/L (3.5-5.1); TOTAL PROTEIN, SERUM 8.5 g/dL (6.0-8.3)
[2020-05-02 14:28] LABS: INR 1.02 (0.85-1.15); PARTIAL THROMBOPLASTIN TIME 28.2 SEC (26.3-35.5)
--- NOTE | 2020-05-03 13:00 | NUR ---
covid as per daughter pt had rapid covid test done on wednesday. clarified with jasson flores yarn washer if ok to present this test. pt needs pcr covid test so pt instructed to come today for swabbing after dialysis.
--- NOTE | 2020-05-03 13:30 | NUR ---
report called dr marie and informed of wbc and abnorm cmp. no new orders received. also informed md that pt is concerned camilo she is having surgery on dialysis day. pt being dialyzed today and md will prescribe kayexelate on wednesday and if needed will have dialysis on wednesday. pt informed of script pending to be called to pharmacy by . pt voiced understanding.
[2020-05-03 13:32] VITALS: BP 140/72
[~2020-05-06] VITALS: Ht 160 cm; Wt 106.6 kg
[2020-05-06] VITALS (18 sets, daily range): BP systolic 113–168; BP diastolic 35–71
[~2020-05-06 06:58] MED LIST changes: -ALLO100T PO; -CLOP75TA32 PO; -DICY10CA13 PO; +ESCI10TA PO; -ESCI5TAB10 PO; -FERS325 PO; +INSU500I SQ; -LACT10SO9 PO; +PHARMACY COMMUNICATION MISC SCH; +biotin PO
[2020-05-06] MEDS ORDERED: MIDAZOLAM HCL 1 MG/ML 2ML VIAL ONE (07:18)
[2020-05-06] MEDS ORDERED: SUCCINYLCHOLINE CHLORIDE 20 MG/ML 10 ML VIAL ONE (07:18)
[2020-05-06] MEDS ORDERED: GLYCOPYRROLATE 1 MG/5 ML SYRINGE ONE (07:18)
[2020-05-06] MEDS ORDERED: ONDANSETRON HCL 4 MG/2 ML VIAL ONE (07:18)
[2020-05-06] MEDS ORDERED: DEXAMETHASONE SOD PHOSPHATE 10MG/ML 1ML VIAL ONE (07:18)
[2020-05-06] MEDS ORDERED: LIDOCAINE PF 2% 5ML ABBOJECT ONE (07:18)
[2020-05-06] MEDS ORDERED: SODIUM CHLORIDE 0.9% 500ML 500 ML IV ONE (07:19)
[2020-05-06] MEDS ORDERED: NEOSTIGMINE 5MG/5ML SYR IV ONE (07:19)
[2020-05-06] MEDS ORDERED: ROCURONIUM 10MG/1ML SYR 10 MG/ML ML ONE (07:19)
[2020-05-06] MEDS ORDERED: PROPOFOL 10 MG/ML 20ML VIAL IV ONE (07:19)
[2020-05-06] MEDS ORDERED: FENTANYL CITRATE PF 50 MCG/1 ML 2ML VIAL ONE (07:20)
[2020-05-06] MEDS ORDERED: ROPIVACAINE 0.5% 5MG/ML 30ML IJ ONE (07:21)
[2020-05-06] MEDS ORDERED: LIDOCAINE HCL MPF 1% 5ML VIAL ONE (07:27)
[2020-05-06] MEDS ORDERED: KETAMINE 50MG/ML SYRINGE 50 MG/ML DISP.SYRIN IV ONE (07:35)
[2020-05-06] MEDS ORDERED: NOREPINEPHRINE BITARTRATE 1 MG/1 ML ML IV ONE (07:45)
[2020-05-06] MEDS ORDERED: PHENYLEPHRINE HCL 10 MG/ML 1ML VIAL IV ONE (07:45)
[2020-05-06] MEDS ORDERED: CLINDAMYCIN 900 MG/D5% WATER 50 ML IV ONE (08:16)
[2020-05-06] MEDS ORDERED: ALBUMIN (HUMAN) 5% 250 ML IV ONE ×2 (08:28→11:31)
[2020-05-06] MEDS ORDERED: FOLI0.8T22 PO (08:46)
[2020-05-06] MEDS ORDERED: SEVE800T7 PO (08:47)
[2020-05-06] MEDS ORDERED: HEPARIN SODIUM 1000UNIT/ML 10ML VIAL ONE (10:12)
--- NOTE | 2020-05-06 13:10 | NUR ---
POST OP RECEIVED PT POST OP. PT LEFT ARM ELEVATED WITH PILLOW. SITE FREE FROM BLEEDING. PT DOES HAVE SOME SWELLING AND MILD BRUISING. SPOUSE IN ROOM. ORIENTED TO CALL LIGHT AND ROOM. WILL CONTINUE TO MONITOR PT
--- NOTE | 2020-05-06 14:15 | NUR ---
d/c pt and spouse given d/c instructions. no s/s of bleeding noted. pt taken out via w/c by ivon diaz and [facility]
== END 2020-05-06 14:15 | disposition home or self-care (01) ==
LOC: DAH 06:58
PROVIDERS: ATTEND Student in an Organized Health Care Education/Training Program
DX: E11.22 Type 2 diabetes mellitus with diabetic chronic kidney disease (principal); Z20.828 Contact with and (suspected) exposure to other viral communicable diseases; I12.0 Hypertensive chronic kidney disease with stage 5 chronic kidney disease or end stage renal disease; N18.6 End stage renal disease; I25.10 Atherosclerotic heart disease of native coronary artery without angina pectoris; K21.9 Gastro-esophageal reflux disease without esophagitis; I25.2 Old myocardial infarction; G47.33 Obstructive sleep apnea (adult) (pediatric); I44.7 Left bundle-branch block, unspecified; E66.01 Morbid (severe) obesity due to excess calories; E78.5 Hyperlipidemia, unspecified; Z95.1 Presence of aortocoronary bypass graft; Z79.4 Long term (current) use of insulin; Z99.2 Dependence on renal dialysis; Z79.899 Other long term (current) drug therapy; Z98.890 Other specified postprocedural states; Z79.01 Long term (current) use of anticoagulants; Z90.49 Acquired absence of other specified parts of digestive tract; Z83.3 Family history of diabetes mellitus; Z82.49 Family history of ischemic heart disease and other diseases of the circulatory system
CPT/HCPCS: 36415 ×2; 36830; 71045; 80053; 82948; 84132; 85025; 85610; 85730; 86850 ×2; 86900 ×2; 86901 ×2; 93005; A4215; A4221; A4222; A4223; A4606; A4649; A4663; A6207; A6260; C1768; C9803; G0168; J0330; J1100; J1644 ×2; J2001; J2250; J2370; J2405; J2704; J2710; J2795; J3010; J3490 ×5; J7040; P9045 ×2; U0003

== ENCOUNTER 2020-11-21 17:04 | Observation (INO) | payer MEDICARE, OTHER ==
[~2020-11-21] VITALS: Ht 162.6 cm; Wt 115.2 kg
[~2020-11-21 17:04] MED LIST changes: -PHARMACY COMMUNICATION MISC SCH; +SEVE800T7 PO
[2020-11-21 18:37] LABS: BASOPHILS % (AUTO) 0.7 % (0.0-5.0); EOSINOPHILS % (AUTO) 2.5 % (0.0-8.0); HEMATOCRIT 37.3 % (36-48); LYMPHOCYTES % (AUTO) 20.6 % (21.0-51.0); MEAN CORPUSCULAR HEMOGLOBIN 32.7 pg (27.0-33.0); MEAN CORPUSCULAR VOLUME 99.2 fL (79-99); MONOCYTES % (AUTO) 9.1 % (3.0-13.0); NEUTROPHILS % (AUTO) 66.6 % (40.0-77.0); PLATELET COUNT (AUTO) 264 K/uL (130-400); RED BLOOD CELL COUNT(AUTO) 3.76 MIL/uL (4.00-5.50); RED CELL DISTRIBUTION WIDTH 13.2 % (11.0-15.5); WHITE BLOOD COUNT (AUTO) 11.1 K/uL (4.8-10.8)
[2020-11-21] MEDS ORDERED: ZOSYN 3.375GM+NS 50ML 50 ML IV ONE (18:40)
[2020-11-21] MEDS ORDERED: SODIUM CHLORIDE 0.9% 50 ML IV ONE (18:42)
[2020-11-21 18:49] LABS: CREATININE 4.3 mg/dL (0.5-1.5); POTASSIUM 4.5 mmol/L (3.5-5.1)
[2020-11-21 18:50] LABS: INR 1.15 (0.85-1.15); PROTHROMBIN TIME 12.4 SEC (9.6-11.6)
[2020-11-21 18:51] LABS: PARTIAL THROMBOPLASTIN TIME 27.8 SEC (26.3-35.5)
[2020-11-21 18:53] LABS: ALBUMIN 3.2 g/dL (3.5-5.0); BILIRUBIN,TOTAL 0.3 mg/dL (0.2-1.0); CRP QUANTITATIVE 16.8 mg/L (0.00-9.0); TOTAL PROTEIN, SERUM 8.2 g/dL (6.0-8.3)
[2020-11-21 19:05] LABS: B-TYPE NATRIURETIC PEPTIDE 338 pg/mL (0-100)
[2020-11-21 19:46] LABS: ERYTHROCYTE SEDIMENTATION RATE 71 MM/HR (0-30)
[2020-11-21] MEDS ORDERED: MORPHINE 4 MG SYG (4MG/1ML) ONE (19:48)
[2020-11-21] MEDS ORDERED: ONDANSETRON HCL 4 MG/2 ML VIAL ONE (19:48)
[2020-11-21] MEDS ORDERED: ONDANSETRON HCL 4 MG/2 ML VIAL IV PRN (21:15)
[2020-11-21] MEDS ORDERED: ACETAMINOPHEN 325 MG TAB PO PRN ×2 (21:15)
[2020-11-22 01:50] VITALS: BP 126/55
[2020-11-22] MEDS: FUROSEMIDE 20MG VIAL (10MG/ML) IV SCH (02:00)
[2020-11-22] MEDS ORDERED: FUROSEMIDE 20MG VIAL (10MG/ML) ONE (02:21)
[2020-11-22] MEDS: HYDROMORPHONE 1MG AMP (1MG/ML) IV PRN ×2 (02:27→13:51)
[2020-11-22 04:16] VITALS: BP 96/43
[2020-11-22 04:36] LABS: BASOPHILS % (AUTO) 0.5 % (0.0-5.0); EOSINOPHILS % (AUTO) 2.7 % (0.0-8.0); HEMATOCRIT 36.9 % (36-48); LYMPHOCYTES % (AUTO) 17.1 % (21.0-51.0); MEAN CORPUSCULAR HEMOGLOBIN 32.4 pg (27.0-33.0); MEAN CORPUSCULAR HGB CONC 32.5 g/dL (32.0-36.0); MEAN CORPUSCULAR VOLUME 99.7 fL (79-99); MONOCYTES % (AUTO) 9.3 % (3.0-13.0); PLATELET COUNT (AUTO) 247 K/uL (130-400); RED CELL DISTRIBUTION WIDTH 13.2 % (11.0-15.5); WHITE BLOOD COUNT (AUTO) 9.4 K/uL (4.8-10.8)
[2020-11-22 04:51] LABS: ALBUMIN 2.9 g/dL (3.5-5.0); BILIRUBIN,TOTAL 0.4 mg/dL (0.2-1.0); CREATININE 5.2 mg/dL (0.5-1.5); CRP QUANTITATIVE 15.8 mg/L (0.00-9.0); POTASSIUM 4.6 mmol/L (3.5-5.1); TOTAL PROTEIN, SERUM 7.3 g/dL (6.0-8.3)
[2020-11-22 04:53] LABS: HEMOGLOBIN A1C 8.5 % (4.0-6.0)
[2020-11-22] MEDS ORDERED: CLOP75TA32 PO (04:53)
[2020-11-22] MEDS ORDERED: LINA5TAB PO (04:53)
[2020-11-22] MEDS ORDERED: LOSA100T58 PO (04:53)
[2020-11-22] MEDS ORDERED: AMLO-257 PO (04:53)
[2020-11-22] MEDS ORDERED: SEVE800 PO (04:53)
[2020-11-22] MEDS ORDERED: HYDR-4153 PO (04:53)
[2020-11-22] MEDS ORDERED: FENO145T PO (04:53)
[2020-11-22] MEDS ORDERED: ALPR0.5T8 PO (04:53)
[2020-11-22] MEDS ORDERED: ASPI-1443 PO (04:53)
[2020-11-22] MEDS ORDERED: ROSU10TA28 PO (04:53)
[2020-11-22] MEDS ORDERED: FLUO20CA30 PO (04:53)
[2020-11-22] MEDS ORDERED: CETI10TA57 PO (04:53)
[2020-11-22] MEDS ORDERED: DEXL60CA3 PO (04:53)
[2020-11-22] MEDS ORDERED: AMOX500C2 PO (04:53)
[2020-11-22] MEDS ORDERED: FURO20TA4 PO (04:53)
[2020-11-22] MEDS ORDERED: ACET500C4 PO (04:53)
[2020-11-22] MEDS ORDERED: MELA1TAB17 PO (04:53)
[2020-11-22] MEDS ORDERED: ZOSYN 3.375GM+NS 50ML 50 ML IV ONE (04:56)
[2020-11-22] MEDS: INSULIN HUMULIN R 100 UNIT/ML 3ML SQ SCH ×4 (06:31→21:38)
[2020-11-22 08:18] VITALS: BP 102/34
[2020-11-22] MEDS ORDERED: FAMOTIDINE/PF 20 MG/2 ML VIAL IV SCH (09:00)
[2020-11-22] MEDS: FAMOTIDINE 20MG TAB 20 MG TAB PO SCH ×2 (09:50→21:34)
[2020-11-22] MEDS: ZOSYN 3.375GM+NS 50ML 50 ML IV SCH ×2 (09:51→21:33)
[2020-11-22 12:00] VITALS: BP 120/40
[2020-11-22 16:00] VITALS: BP 116/34
[2020-11-22] MEDS ORDERED: HYDROMORPHONE 0.5 MG SYG (0.5MG/0.5ML) IVP PRN (16:45)
[2020-11-22] MEDS ORDERED: ZOSYN 3.375GM+NS 50ML 50 ML IV SCH (17:00)
[2020-11-22 20:00] VITALS: BP 104/41
[2020-11-22] MEDS ORDERED: MELATONIN PO SCH (21:00)
[2020-11-22] MEDS ORDERED: PYRIDOXINE HCL PO SCH (21:00)
[2020-11-22] MEDS ORDERED: ALPRAZOLAM 0.5 MG TABLET PO SCH (21:00)
[2020-11-22] MEDS ORDERED: ATORVASTATIN CALCIUM 20 MG TABLET PO SCH (21:00)
[2020-11-22] MEDS: HYDRALAZINE HCL 25 MG TABLET PO SCH (21:33)
[2020-11-23] VITALS: BP 102/51
[2020-11-23] MEDS: FUROSEMIDE 20MG VIAL (10MG/ML) IV SCH (02:07)
[2020-11-23 04:00] VITALS: BP 158/46
[2020-11-23 04:18] LABS: HEMATOCRIT 36.3 % (36-48); MEAN CORPUSCULAR HEMOGLOBIN 31.6 pg (27.0-33.0); MEAN CORPUSCULAR VOLUME 98.9 fL (79-99); RED BLOOD CELL COUNT(AUTO) 3.67 MIL/uL (4.00-5.50); WHITE BLOOD COUNT (AUTO) 10.3 K/uL (4.8-10.8)
[2020-11-23 04:39] LABS: ALBUMIN 2.9 g/dL (3.5-5.0); BILIRUBIN,TOTAL 0.5 mg/dL (0.2-1.0); CREATININE 7.3 mg/dL (0.5-1.5); MAGNESIUM 2.2 mg/dL (1.80-2.40); PHOSPHORUS 9.4 mg/dL (2.5-4.9); POTASSIUM 5.4 mmol/L (3.5-5.1); TOTAL PROTEIN, SERUM 7.4 g/dL (6.0-8.3)
[2020-11-23] MEDS: INSULIN HUMULIN R 100 UNIT/ML 3ML SQ SCH ×3 (06:32→16:34)
[2020-11-23 07:38] VITALS: BP 125/43
[2020-11-23] MEDS ORDERED: FUROSEMIDE 20 MG TABLET PO SCH (09:00)
[2020-11-23] MEDS ORDERED: LINAGLIPTIN 5 MG TABLET PO SCH (09:00)
[2020-11-23] MEDS ORDERED: PANTOPRAZOLE SODIUM 40 MG TABLET.DR PO SCH (09:00)
[2020-11-23] MEDS ORDERED: Vitamin B Complex/Vit C/Folic Acid PO SCH (09:00)
[2020-11-23] MEDS ORDERED: AMLODIPINE BESYLATE 5 MG TAB PO SCH (09:00)
[2020-11-23] MEDS ORDERED: ASPIRIN 81 MG EC TAB PO SCH (09:00)
[2020-11-23] MEDS ORDERED: FENOFIBRATE NANOCRYSTALLIZED 145 MG TAB PO SCH (09:00)
[2020-11-23] MEDS ORDERED: LOSARTAN 100 MG TABLET PO SCH (09:00)
[2020-11-23] MEDS ORDERED: FLUOXETINE HCL 20 MG CAPSULE PO SCH (09:00)
[2020-11-23] MEDS ORDERED: CETIRIZINE HCL 5 MG TABLET PO SCH (09:00)
[2020-11-23] MEDS ORDERED: METOPROLOL TARTRATE 50 MG TAB PO SCH (09:00)
[2020-11-23 11:00] VITALS: BP_SYST 109; BP_SYST 112; BP_DIAS 43; BP_DIAS 66
[2020-11-23] MEDS ORDERED: HEPARIN SODIUM 5000UNIT/ML 1ML VIAL ONE (12:27)
[2020-11-23] MEDS ORDERED: CLIN300C10 PO (13:19)
[2020-11-23] MEDS: FAMOTIDINE 20MG TAB 20 MG TAB PO SCH (15:13)
[2020-11-23] MEDS: HYDRALAZINE HCL 25 MG TABLET PO SCH (15:14)
[2020-11-23] MEDS: ZOSYN 3.375GM+NS 50ML 50 ML IV SCH (15:36)
[2020-11-23 15:39] VITALS: BP 121/38
[2020-11-24 15:09] LABS: HEPATITIS A ANTIBODY IGM Negative (Negative); HEPATITIS B CORE IGM Negative (Negative); HEPATITIS Bs ANTIGEN SCREEN P Negative (Negative)
== END 2020-11-23 17:30 | disposition home or self-care (01) ==
LOC: EDH 17:04 → EDHIP 21:15 → INTOOBSV 21:15 → 4BH 11-22 01:24
PROVIDERS: ADMIT Internal Medicine; ATTEND Internal Medicine
DX: L03.311 Cellulitis of abdominal wall (principal); Z20.822 Contact with and (suspected) exposure to COVID-19; L02.211 Cutaneous abscess of abdominal wall; M79.3 Panniculitis, unspecified; N17.9 Acute kidney failure, unspecified; E11.22 Type 2 diabetes mellitus with diabetic chronic kidney disease; I12.0 Hypertensive chronic kidney disease with stage 5 chronic kidney disease or end stage renal disease; N18.6 End stage renal disease; I25.119 Atherosclerotic heart disease of native coronary artery with unspecified angina pectoris; R79.89 Other specified abnormal findings of blood chemistry; E66.01 Morbid (severe) obesity due to excess calories; E78.5 Hyperlipidemia, unspecified; D72.829 Elevated white blood cell count, unspecified; N20.0 Calculus of kidney; E11.51 Type 2 diabetes mellitus with diabetic peripheral angiopathy without gangrene; E11.621 Type 2 diabetes mellitus with foot ulcer; L97.509 Non-pressure chronic ulcer of other part of unspecified foot with unspecified severity; N39.0 Urinary tract infection, site not specified; D64.9 Anemia, unspecified; Z99.2 Dependence on renal dialysis; Z95.1 Presence of aortocoronary bypass graft; Z90.49 Acquired absence of other specified parts of digestive tract; Z89.421 Acquired absence of other right toe(s); Z79.4 Long term (current) use of insulin; Z79.899 Other long term (current) drug therapy; Z88.1 Allergy status to other antibiotic agents; Z88.8 Allergy status to other drugs, medicaments and biological substances; Z88.0 Allergy status to penicillin; Z91.041 Radiographic dye allergy status; Z68.41 Body mass index [BMI] 40.0-44.9, adult
CPT/HCPCS: 36415 ×3; 74176; 80053 ×3; 80061; 80074; 82550; 82948 ×8; 83036; 83605 ×2; 83735; 83880; 84100; 84145 ×2; 84484; 85025 ×2; 85027; 85610; 85651; 85730; 86140 ×2; 87040 ×2; 87426; 93005; 93306; 93356; 96365; 96366 ×2; 96375 ×2; 96376 ×2; 99285; G0378 ×43; J1170 ×3; J1644; J1815 ×4; J1940; J2270; J2405; J2543 ×4; U0003; 90935

== ENCOUNTER 2022-05-18 10:59 | Emergency (ER) | payer MEDICARE ==
[~2022-05-18] VITALS: Ht 162.6 cm; Wt 108.9 kg
[~2022-05-18 10:59] MED LIST changes: +ACET500C4 PO; +ALPR0.5T8 PO; +AMLO-257 PO; +ASPI-1443 PO; -ATOR40TA69 PO; +CETI10TA57 PO; +CLIN-141 PO; +CLOP75TA32 PO; +DEXL60CA3 PO; -ESCI10TA PO; +FENO145T PO; +FLUO20CA30 PO; +FURO20TA4 PO; +HYDR-4153 PO; +LINA5TAB PO; +LOSA100T58 PO; +MELA1TAB17 PO; +ROSU10TA28 PO; +SEVE800 PO; -SEVE800T7 PO; -biotin PO
[2022-05-18 11:56] LABS: EOSINOPHILS % (AUTO) 2.9 % (0.0-8.0); HEMATOCRIT 36.2 % (36-48); LYMPHOCYTES % (AUTO) 16.6 % (21.0-51.0); MEAN CORPUSCULAR HEMOGLOBIN 31.8 pg (27.0-33.0); MEAN CORPUSCULAR HGB CONC 33.1 g/dL (32.0-36.0); MONOCYTES % (AUTO) 8.8 % (3.0-13.0); NEUTROPHILS % (AUTO) 70.1 % (40.0-77.0); PLATELET COUNT (AUTO) 167 K/uL (130-400); RED BLOOD CELL COUNT(AUTO) 3.77 MIL/uL (4.00-5.50); WHITE BLOOD COUNT (AUTO) 7.3 K/uL (4.8-10.8)
[2022-05-18] MEDS ORDERED: TRAMADOL HCL 50 MG TABLET PO SCH (12:00)
[2022-05-18 13:12] LABS: ALBUMIN 3.3 g/dL (3.5-5.0); CREATININE 3.8 mg/dL (0.5-1.5); POTASSIUM 3.4 mmol/L (3.5-5.1); TOTAL PROTEIN, SERUM 7.1 g/dL (6.0-8.3)
[2022-05-18] MEDS ORDERED: TRAM50TA2 PO (13:30)
[2022-05-18 14:10] VITALS: BP 146/62
== END 2022-05-18 13:55 | disposition home or self-care (01) ==
LOC: EDH 10:59
DX: H57.11 Ocular pain, right eye (principal); R51.9 Headache, unspecified; R09.81 Nasal congestion; E11.9 Type 2 diabetes mellitus without complications; I10 Essential (primary) hypertension; Z88.1 Allergy status to other antibiotic agents; Z88.8 Allergy status to other drugs, medicaments and biological substances; Z79.899 Other long term (current) drug therapy; Z79.82 Long term (current) use of aspirin; Z79.4 Long term (current) use of insulin; Z79.84 Long term (current) use of oral hypoglycemic drugs; Z90.89 Acquired absence of other organs; Z90.49 Acquired absence of other specified parts of digestive tract; Z98.890 Other specified postprocedural states
CPT/HCPCS: 36415; 70450; 80053; 85025; 87804

== ENCOUNTER 2022-06-03 05:36 | Emergency (ER) | payer MEDICARE ==
[~2022-06-03] VITALS: Ht 162.6 cm; Wt 108.9 kg
[~2022-06-03 05:36] MED LIST changes: +TRAM50TA2 PO
[2022-06-03 06:35] LABS: HEMATOCRIT 38.4 % (36-48); MEAN CORPUSCULAR HEMOGLOBIN 31.9 pg (27.0-33.0); MEAN CORPUSCULAR HGB CONC 32.3 g/dL (32.0-36.0); MEAN CORPUSCULAR VOLUME 98.7 fL (79-99); PLATELET COUNT (AUTO) 163 K/uL (130-400); RED BLOOD CELL COUNT(AUTO) 3.89 MIL/uL (4.00-5.50); RED CELL DISTRIBUTION WIDTH 13.5 % (11.0-15.5); WHITE BLOOD COUNT (AUTO) 7.8 K/uL (4.8-10.8)
[2022-06-03 07:12] LABS: APPEARANCE,URINE CLOUDY (CLEAR); BILIRUBIN,URINE NEGATIVE (NEGATIVE); COLOR,URINE YELLOW (YELLOW); GLUCOSE, URINE (UA) >=1000 mg/dL (NEGATIVE); KETONES,URINE NEGATIVE (NEGATIVE); LEUKOCYTE ESTERASE ,URINE 500 Leu/uL (NEGATIVE); NITRATE,URINE NEGATIVE (NEGATIVE); OCCULT BLOOD,URINE SMALL (NEGATIVE); PROTEIN,URINE 300 mg/dL (NEGATIVE); UROBILINOGEN,URINE 0.2 mg/dL (0.2-1.0)
[2022-06-03 07:21] LABS: BACTERIA,URINE MOD /HPF (None Seen); SQUAMOUS EPITHELIAL CELL,UR RARE /HPF (0-2); WBC,URINE TNTC /HPF (0-1)
[2022-06-03 07:24] LABS: BASOPHILS % (MANUAL) 1 % (0-2); EOSINOPHILS % (MANUAL) 4 % (1-6); LYMPHOCYTES % (MANUAL) 19 % (22-44); MAN.DIFF COMMENT-IMPRESSION MANUAL DIFFERENTIAL; MONOCYTES % (MANUAL) 8 % (2-9); PLATELET MORPHOLOGY COMMENT ADEQUATE; SEGMENTED NEUTROPHILS % 68 % (40-70)
[2022-06-03 07:32] LABS: ALBUMIN 3.4 g/dL (3.5-5.0); CREATININE 5.2 mg/dL (0.5-1.5); POTASSIUM 4.5 mmol/L (3.5-5.1); TOTAL PROTEIN, SERUM 7.5 g/dL (6.0-8.3)
[2022-06-03 08:44] VITALS: BP 168/64
[2022-06-03] MEDS ORDERED: NITR100C4 PO (09:40)
== END 2022-06-03 09:55 | disposition home or self-care (01) ==
LOC: EDH 05:36
DX: N39.0 Urinary tract infection, site not specified (principal); R42 Dizziness and giddiness; I12.0 Hypertensive chronic kidney disease with stage 5 chronic kidney disease or end stage renal disease; E11.22 Type 2 diabetes mellitus with diabetic chronic kidney disease; N18.6 End stage renal disease; Z99.2 Dependence on renal dialysis; E78.00 Pure hypercholesterolemia, unspecified; Z88.1 Allergy status to other antibiotic agents; Z88.8 Allergy status to other drugs, medicaments and biological substances; Z79.899 Other long term (current) drug therapy; Z79.82 Long term (current) use of aspirin; Z79.4 Long term (current) use of insulin; Z98.890 Other specified postprocedural states
CPT/HCPCS: 36415; 70450; 71045; 80053; 81001; 83605; 84484; 85025; 87040; 87077; 87088; 87186; 93005

== ENCOUNTER 2022-07-19 15:59 | Emergency (ER) | payer MEDICARE ==
[~2022-07-19] VITALS: Ht 162.6 cm; Wt 108.9 kg
[~2022-07-19 15:59] MED LIST changes: +NITR100C4 PO
[2022-07-19 16:00] VITALS: BP 165/67
== END 2022-07-19 19:29 | disposition home or self-care (01) ==
LOC: EDH 15:59
DX: S92.012A Displaced fracture of body of left calcaneus, initial encounter for closed fracture (principal); I10 Essential (primary) hypertension; E78.00 Pure hypercholesterolemia, unspecified; E11.9 Type 2 diabetes mellitus without complications; Z88.8 Allergy status to other drugs, medicaments and biological substances; Z79.899 Other long term (current) drug therapy; X50.1XXA Overexertion from prolonged static or awkward postures, initial encounter; Y93.89 Activity, other specified; Y92.89 Other specified places as the place of occurrence of the external cause; Y99.8 Other external cause status
CPT/HCPCS: 29515; 73620

== ENCOUNTER 2022-08-05 22:57 | Emergency (ER) | payer MEDICARE ==
[~2022-08-05 22:57] MED LIST changes: +ATOR40TA71 PO; +AZEL137S11 EN; +ESCI-8 PO
[2022-08-05] MEDS ORDERED: ACETAMINOPHEN WITH CODEINE 1 TAB TAB PO ONE (23:30)
[2022-08-05] MEDS ORDERED: ONDANSETRON ODT 4MG TAB SL ONE (23:30)
[2022-08-05 23:33] VITALS: BP 169/71
[2022-08-06] MEDS ORDERED: AZIT250T9 PO (00:08)
== END 2022-08-06 00:13 | disposition home or self-care (01) ==
LOC: EDH 22:57
DX: J02.9 Acute pharyngitis, unspecified (principal); E11.9 Type 2 diabetes mellitus without complications; E78.00 Pure hypercholesterolemia, unspecified; I10 Essential (primary) hypertension; Z20.822 Contact with and (suspected) exposure to COVID-19; Z79.82 Long term (current) use of aspirin; Z79.84 Long term (current) use of oral hypoglycemic drugs; Z79.899 Other long term (current) drug therapy; Z88.1 Allergy status to other antibiotic agents; Z88.8 Allergy status to other drugs, medicaments and biological substances; Z95.1 Presence of aortocoronary bypass graft; Z98.890 Other specified postprocedural states
CPT/HCPCS: 99284; 87635; 87880; 87804 ×2; 73562; 73590; C9803

== ENCOUNTER → 2022-09-04 | Outpatient (CLI) | payer MEDICARE ==
[~2022-09-04] MED LIST changes: +AZIT250T9 PO
== END | disposition home or self-care (01) ==
LOC: RAH 12:28
PROVIDERS: ATTEND Podiatrist
DX: S92.032 Displaced avulsion fracture of tuberosity of left calcaneus (principal); M19.072 Primary osteoarthritis, left ankle and foot; M77.32 Calcaneal spur, left foot; X58.XXXD Exposure to other specified factors, subsequent encounter
CPT/HCPCS: 73630